=== PATIENT | female | born 1940 | race Caucasian/White ===

== ENCOUNTER 2023-09-25 11:38 | Outpatient (CLI) | payer MEDICARE, MEDICAID, SELFPAY ==
[2023-09-25 12:18] LABS: Basophils Absolute Auto 0.1 K/mm3 (0.0-0.1); Basophils Percent Auto 0.6 % (0.2-1.2); Eosinophils Absolute Auto 0.3 K/mm3 (0-0.3); Eosinophils Percent Auto 3.1 % (0-4.4); Hematocrit 40.3 % (37.0-47.0); Hemoglobin 12.6 g/dL (12.0-15.0); Immature Granulocyte Absolute 0.03 K/mm3 (0.00-0.031); Immature Granulocyte Percent A 0.3 % (0-0.5); Lymphocytes Absolute Auto 1.74 K/mm3 (0.9-3.2); Lymphocytes Percent Auto 20.1 % (18.3-44.2); Mean Corpuscular HGB Conc 31.3 g/dl (32-36); Mean Corpuscular Volume 92.6 fl (80-100); Mean Platelet Volume 12.2 fl (7.4-10.4); Monocytes Absolute Auto 0.7 K/mm3 (0.1-0.6); Monocytes Percent Auto 7.8 % (2.6-8.5); Neutrophils Absolute Auto 5.9 K/mm3 (1.3-6.7); Neutrophils Percent Auto 68.1 % (45.5-73.1); Platelet Count Result 220 k/mm3 (150-375); Red Blood Count 4.35 M/mm3 (4.2-5.4); Red Cell Distribution Width 13.6 % (11.5-14.5); White Blood Count 8.6 K/mm3 (4.5-10.0)
--- NOTE | 2023-09-25 12:18 | ECG_ITS ---
Test Date: 2023-09-25 12:26:45 Measurements Intervals [place] Rate: 68 P: 65 SD: 150 QRS: 28 QRSD: 92 T: 51 QT: 370 QTc: 395 Interpretive Statements SINUS RHYTHM NORMAL ELECTROCARDIOGRAM No previous ECG available for comparison Electronically Signed On 09-25-2023 15:51:01 CDT by Teofilo Bagley M.D.
[2023-09-25 12:21] LABS: Appearance Urine Clear (Clear); Bacteria Urine 3+ /hpf; Bilirubin Urine Negative (Negative); Blood Urine Trace (Negative); Color Urine Yellow (Yellow); Glucose Urine UA Negative (Negative); Ketones Urine Negative (Negative); Leukocyte Esterase Ur 3+ LEU/UL (Negative); Nitrate Urine Negative (Negative); Non Pathogenic Casts 0-2; Protein Urine Trace mg/dL (Negative); RBC Urine 0-2 /hpf (0-2); Specific Grav Ur 1.006 (1.001-1.035); Squamous Epithelial Cell Urine None Seen /hpf (Few); Urobilinogen Urine 0.2 mg/dL (<2.0); WBC Urine >100 /hpf (0-3); pH Urine 7.5 (5.0-9.0)
[2023-09-25 12:30] LABS: Add Urine Microscopic? YES
[2023-09-25 12:33] LABS: Hemoglobin A1C 5.6 % (<5.7)
== END 2023-09-25 11:39 | disposition home or self-care (01) ==
PROVIDERS: PCP Family Medicine; Visit Provider Nurse Practitioner Family
DX: M25.569 Pain in unspecified knee (principal); R73.03 Prediabetes; R53.83 Other fatigue; M17.12 Unilateral primary osteoarthritis, left knee; I10 Essential (primary) hypertension; E78.5 Hyperlipidemia, unspecified
CPT/HCPCS: 36415; 81001; 83036; 85025; 87077; 87086; 87088; 93005

== ENCOUNTER 2023-11-20 11:57 | Outpatient (CLI) | payer MEDICARE, MEDICAID, SELFPAY ==
[2023-11-20 13:23] LABS: Basophils Absolute Auto 0.1 K/mm3 (0.0-0.1); Basophils Percent Auto 0.8 % (0.2-1.2); Eosinophils Absolute Auto 0.2 K/mm3 (0-0.3); Eosinophils Percent Auto 2.4 % (0-4.4); Hemoglobin 12.5 g/dL (12.0-15.0); Immature Granulocyte Absolute 0.04 K/mm3 (0.00-0.031); Immature Granulocyte Percent A 0.5 % (0-0.5); Lymphocytes Absolute Auto 1.83 K/mm3 (0.9-3.2); Lymphocytes Percent Auto 21.2 % (18.3-44.2); Mean Corpuscular HGB Conc 32.9 g/dl (32-36); Mean Corpuscular Hemoglobin 29.6 pg (26-34); Mean Corpuscular Volume 89.8 fl (80-100); Mean Platelet Volume 11.7 fl (7.4-10.4); Monocytes Percent Auto 11.1 % (2.6-8.5); Neutrophils Absolute Auto 5.5 K/mm3 (1.3-6.7); Platelet Count Result 250 k/mm3 (150-375); Red Blood Count 4.23 M/mm3 (4.2-5.4); Red Cell Distribution Width 13.8 % (11.5-14.5); White Blood Count 8.7 K/mm3 (4.5-10.0)
[2023-11-20 13:27] LABS: Add Urine Microscopic? YES; Appearance Urine Clear (Clear); Bacteria Urine None Seen /hpf; Bilirubin Urine Negative (Negative); Blood Urine Negative (Negative); Color Urine Yellow (Yellow); Glucose Urine UA Negative (Negative); Ketones Urine Negative (Negative); Leukocyte Esterase Ur Negative LEU/UL (Negative); Nitrate Urine Negative (Negative); Non Pathogenic Casts 0-2; Protein Urine Trace mg/dL (Negative); RBC Urine 0-2 /hpf (0-2); Specific Grav Ur 1.008 (1.001-1.035); Squamous Epithelial Cell Urine None Seen /hpf (Few); Urobilinogen Urine 0.2 mg/dL (<2.0); WBC Urine 0-5 /hpf (0-3); pH Urine 5.5 (5.0-9.0)
[2023-11-20 13:31] LABS: Urine Cotinine NEGATIVE
[2023-11-20 13:36] LABS: Albumin Level 4.9 g/dL (3.5-5.1); Anion Gap 12 mmol/L (4-12); Blood Urea Nitrogen 14 mg/dL (7-17); Calcium 10.4 mg/dL (8.4-10.2); Carbon Dioxide 28 mmol/L (22-30); Chloride 93 mmol/L (98-107); Estimated Glomerular Filt Rate > 60; Glucose 95 mg/dL (65-110); Potassium 4.4 mmol/L (3.4-5.0); Sodium 133 mmol/L (137-145)
[2023-11-20 13:42] LABS: Prothrombin Time 13.9 Seconds (11.1-14.7)
[2023-11-20 13:43] LABS: Partial Thromboplastin Time 28.7 Seconds (22.3-36.8)
[2023-11-20 14:34] LABS: MRSA (PCR) NOT DETECTED (NOT DETECTE)
== END 2023-11-20 11:58 | disposition home or self-care (01) ==
LOC: ANHSURGERY 11:59
PROVIDERS: PCP Family Medicine; Visit Provider Orthopaedic Surgery
DX: M17.12 Unilateral primary osteoarthritis, left knee (principal); Z01.818 Encounter for other preprocedural examination
CPT/HCPCS: 80048; 80307; 81001; 82040; 85025; 85610; 85730; 86850; 86900; 86901; 87641

== ENCOUNTER 2023-12-01 00:28 | Day surgery (SDC) | payer MEDICARE, MEDICAID, SELFPAY ==
[2023-11-20 12:08] VITALS: BMI 26.9
--- NOTE | 2023-11-20 12:39 | PC.NURSE ---
Report to the Outpatient Waiting Room, entrance under the green pavilion located off [facility], at time __6:00 AM on date 12/01/23 . Planned Procedure Time: _7:30 AM .? Time changes happen often and if your time is changed the preop area will call you the afternoon before. - You and your visitor will be asked to self-screen and do not enter if you have any COVID symptoms. Please call surgeon if you need to reschedule. - A mask is optional within the hospital at this time. Patients may have clear liquids (water, carbonated beverages, clear teas, apple juice) until 3 hours prior to surgery ( 4:30 AM)with a maximum of 20 ounces. - No food from midnight until time of surgery and no smoking - Infants may have breast milk until 4 hours before surgery, infant formula 6 hours prior to surgery. - Children will be allowed to drink immediately following surgery.? If applicable, please bring a bottle or sippy cup to assist with drinking. Juice, water, soda, and popsicles are readily available.? For infants on formula, please bring formula the day of surgery.? Pacifiers are allowed. Take only the following medications with a SIP of water on the morning of surgery: AMLODIPINE,EYE DROPS DO NOT STOP ANY OF YOUR OTHER PRESCRIPTION MEDICATIONS PRIOR TO SURGERY EXCEPT THE FOLLOWING Medications to discontinue per physician __HOLD ALL VITAMINS AND SUPPLEMENTS 3 DAYS PRE OP.LAST DOSE 11/27/23 Please no make-up, nail kinyarwanda, hairspray, perfume, deodorant, or body powder the day of surgery.? No jewelry (including any body piercings) or valuables the day of surgery, leave them at home.? Please take a shower or bath the night before, or the morning of, surgery with an antibacterial soap.? Wear comfortable, loose fitting clothing.? Children are encouraged to wear pajamas. - Jewelry must be removed prior to entering the operating room.? Rings and piercings that are not removed may be cut off. - The hospital will not accept responsibility for valuables.? - Please leave all valuables, including medications, at home the day of surgery. If you are going home after surgery, a licensed intermodal truck driver must drive you home.? - NO public transportation without another adult if you receive anesthesia. - We recommend that an adult stay with you for 24 hours following discharge. - We also recommend that you do not drive, make important decision, drink alcoholic beverages, or take any drugs that were not prescribed by your health care provider for at least 24 hours after your discharge time. For Pediatric surgeries, we recommend two adults accompany the child home. Follow any additional instructions given to you from your surgeon. VERBAL AND WRITTEN instructions given to _PATIENT and asked if any additional questions and then verbalized understanding. Patient advised to call surgeon office or pre surgery nurse liaison [phone] if any additional questions.
[2023-11-20 12:54] VITALS: BP 158/60; PULSE 65; RESP 18; TEMP 36.5; O2SAT 98
[2023-12-01] VITALS (16 sets, daily range): BP systolic 110–158; BP diastolic 48–113; PULSE 62–78; RESP 12–18; TEMP 36.3–37.6; O2SAT 92–100
--- NOTE | ~2023-12-01 | XR_ITS ---
Left Knee Technique: Portable AP and crosstable lateral views Clinical History: Status post TKR Findings: Patient is status post total knee replacement. Orthopedic hardware alignment appears anatom ic. No hardware complication is evident. Subcutaneous emphysema and swelling is likely postoperative in nature. No acute osseous fracture is seen. Impression: Status post total knee replacement, without evidence of hardware complication. Reviewed, dictated and finalized at location . Impression: Status post total knee replacement, without evidence of hardware complication.
[2023-12-01] MEDS: LACTATED RINGERS 1,000 ML 30 ML IV CONT (06:25)
[2023-12-01] MEDS: TRANEXAMIC ACID 1,000MG/ISO100 1,000 MG/100 ML BAG 200 MG IVPB (06:25)
[2023-12-01] MEDS: ACETAMINOPHEN 500 MG TABLET 1000 MG PO (06:35)
--- NOTE | 2023-12-01 06:35 | WPDANESEPPF ---
Anes - Initial Pre Proc Eval Procedure: Operation Date: 12/01/23 07:30 Proposed Procedures p Left Total Knee Arthroplasty - Sven Lee MD Date/Time: 12/01/23 06:35 Surgeon: Sven Lee MD Pre Op Diagnosis: left knee oa Patient Data Age: 83 Gender: F Height: 1.52 m Weight: 62.4 kg Last Vital Signs Temp 36.5 C 11/20/23 12:54 Pulse 65 11/20/23 12:54 Resp 18 11/20/23 12:54 BP 158/60 H 11/20/23 12:54 Pulse Ox 98 11/20/23 12:54 O2 Del Method Room Air 11/20/23 12:54 Allergies Allergy/AdvReac Type Severity Reaction Status Date / Time Penicillins Allergy Unknown hives Verified 12/01/23 06:31 Home Medications Medication Instructions Recorded Confirmed Type bimatoprost 0.01 % eye drops 1 drp EACH EYE HS 01/23/21 12/01/23 History (Lumigan) cyclosporine 0.05 % eye drops in a 1 drp EACH EYE Q12H 01/23/21 12/01/23 History dropperette (Restasis) dorzolamide 2 %-timolol 0.5 % (PF) 1 drp EACH EYE BID 01/23/21 12/01/23 History eye drops valsartan 320 1 tablet PO DAILY #90 tabs 11/16/22 12/01/23 Rx mg-hydrochlorothiazide 12.5 mg tablet esomeprazole magnesium 40 mg See Rx Instructions .Route 03/01/23 12/01/23 Rx capsule,delayed release .COMPLEX #100 caps amlodipine 2.5 mg tablet 2.5 mg PO DAILY #100 tabs 06/15/23 12/01/23 Rx Rollator walker with seat #1 ea 08/26/23 11/12/23 Rx acetaminophen 500 mg capsule 500 mg PO Q6H PRN Pain 11/20/23 12/01/23 History ascorbic acid (vitamin C) 500 mg 500 mg PO DAILY 11/20/23 12/01/23 History capsule cholecalciferol (vitamin D3) 50 50 mcg PO DAILY 11/20/23 12/01/23 History mcg (2,000 unit) tablet cyanocobalamin (vitamin B-12) 500 500 mcg PO DAILY 11/20/23 12/01/23 History mcg tablet docosahexaenoic acid (dha)-epa 120 1 cap PO DAILY 11/20/23 12/01/23 History mg-180 mg capsule (Fish Oil) ferrous sulfate 325 mg (65 mg 325 mg PO EVERY OTHER DAY 11/20/23 12/01/23 History iron) tablet glucosamine-chondroitin 250 mg-200 1 tablet PO DAILY 11/20/23 12/01/23 History mg tablet (Osteo Bi-Flex) czvhbktuhvos-zjfxsywb-boxsyf 1 tablet PO DAILY 11/20/23 12/01/23 History tablet (Multivitamin 50 Plus tablet) vit 1 tablet PO DAILY 11/20/23 12/01/23 History C-raxrgzw-juhcgvbrj-rutin-wwul001 500 mg-50 mg-25 mg-40 mg tablet (Bioflex) rosuvastatin 20 mg tablet 20 mg PO DAILY #90 tabs 11/24/23 Rx Patient hx anesthesia problems: none Family hx anesthesia problems: none Results Review: All pre-operative results and documents have been reviewed as part of the pre-operative evaluation. [facility] Past Medical History Medical History Benign essential hypertension Chronic GERD Dry eyes, bilateral Glaucoma History of colon polyps HLD (hyperlipidemia) Other and unspecified hyperlipidemia Other fatigue Pre-diabetes Primary osteoarthritis of both knees Primary osteoarthritis of right hip Surgical History Surgical History Presence of right artificial hip joint Family History Family History Father Malignant neoplasm of prostate Family history of diabetes mellitus in first degree relative Other Acute myocardial infarction Family history of arthritis Family history of gout Family history of malignant neoplasm Hypertension Social History Social History Social History: She is living at [facility]. POA: daughter Valeria. She has a living will. DNR. Years smoked: 10 Smoking status: Former smoker Tobacco type: cigarettes Second hand tobacco smoke exposure: No Smoking end date: 03/30/80 Additional smoking assessment comments: DENIES ANY FORM OF TOBACCO USE Alcohol intake: never Substance use: never Substance use type: does not use [facility]
--- NOTE | 2023-12-01 07:16 | WPDHPUPDATE1 ---
History and Physical Update Update Date/Time: 12/01/23 07:16 History and Physical has been reviewed, including an updated exam of the patient. There are NO changes in the patient's condition. Risks, benefits, and alternatives have been discussed and questions answered. Patient agrees to proceed with procedure.
[2023-12-01] MEDS: ceFAZolin 2 GM/D5W 50 ML 2 GM/50 ML BAG IVPB ×3 (08:05→23:23)
[2023-12-01] MEDS: SODIUM CHLORIDE 0.9% IV 37.7 ML, MORPHINE SULFATE INJ (*CRX) 2 MG, ROPivacaine HCL 1% 2... INFILTRATE (08:12)
[2023-12-01] MEDS: TRANEXAMIC ACID 1,000 MG/10 ML AMPUL 1000 MG IV PUSH (09:01)
--- NOTE | 2023-12-01 09:43 | W.PM.PROC2 ---
Procedure Note - Detailed Date of Procedure 12/01/23 Pre-op Diagnosis left knee oa Post-op Diagnosis Same Procedure Performed L TKA Surgeon Sven Lee MD Anesthesia General Description of Procedure THE LEFT KNEE WAS PREPPED AND DRAPED IN THE STERILE FASHION. A MIDLINE SKIN INCISION WAS MADE. A MEDIAL PARAPATELLAR ARTHROTOMY WAS MADE. THE PATELLA WAS EVERTED. THERE WAS TRICOMPARTMENT DJD. THERE WAS MINIMAL PATELLA DJD. AN INTRAMEDULLARY DYLON WAS PLACED IN THE FEMUR. A DISTAL FEMORAL CUT WAS MADE IN 5 DEGREES OF VALGUS REMOVING APPROXIMATELY 9 MM OF BONE FROM THE DISTAL FEMUR. THE FEMUR WAS SIZED TO 62.5. A 62.5 FEMORAL CUTTING BLOCK WAS PLACED IN 3 DEGREES OF EXTERNAL ROTATION AND IN ALIGNMENT WITH OTF'S LINE AND THE TRANSEPICONDYLAR AXIS. ANTERIOR POSTERIOR AND CHAMFER CUTS WERE MADE. THE CUTS WERE EXCELLENT. NEXT AN INTRAMEDULLARY CUTTING GUIDE WAS PLACED IN THE TIBIA. A TRANS TIBIAL CUT WAS MADE ALONG THE LONG AXIS OF THE TIBIA. APPROXIMATELY 10 MM OF BONE WAS REMOVED FROM THE HIGH SIDE OF THE TIBIA. THE TIBIA WAS THEN PLANED TO A SMOOTH SURFACE. POSTERIOR FEMORAL OSTEOPHYTES WERE REMOVED FROM THE FEMORAL CONDYLES. A 67 TIBIAL TRIAL WAS PLACED IN ALIGNMENT WITH THE 1/3 MEDIAL ASPECT OF THE TIBIAL TUBERCLE. THEN A 62.5 FEMORAL TRIAL COMPONENT WAS PLACED. BOTH HAD EXCELLENT FITS. EVENTUALLY A 12 MM POLYETHYLENE TRIAL COMPONENT WAS PLACED. THE KNEE WAS TAKEN THROUGH A RANGE OF MOTION. THE KNEE CAME OUT TO FULL EXTENSION. THERE WAS NO ABNORMAL TILT TO THE PATELLA. THERE WAS GOOD A/P AND VARUS/VALGUS STABILITY. THERE WAS NO EXCESSIVE ROLL BACK WITH FLEXION. THE TRIAL COMPONENTS WERE REMOVED. THEN A 62.5 FEMORAL COMPONENT AND 67 TIBIAL COMPONENT WITH A 12 POLYETHYLENE COMPONENT WERE CEMENTED INTO PLACE. ONCE THE CEMENT WAS HARD THE KNEE WAS TAKEN THROUGH A ROM AGAIN AND FOUND TO BE STABLE WITH NO PATELLA TILT NO EXCESSIVE ROLL BACK WITH FLEXION AND GOOD STABILITY WITH COMPLETE AND FULL EXTENSION. THE KNEE WAS IRRIGATED WITH STERILE BETADINE AND WATER FOR ABOUT 3 MINUTES. THE BLEEDERS WERE CAUTERIZED. THE ARTHROTOMY WAS REPAIRED WITH NUMBER 1 VICRYL. THE SUB CUTANEOUS LAYER WITH 2-0 VICRYL AND THE SKIN WITH LILIA. THE WOUND WAS WASHED AND A STERILE DRESSING WAS APPLIED. PATIENT WAS EXTUBATED. Estimated Blood Loss -150.0 Pathology None sent Complications No immediate complications Condition Stable Disposition PACU
--- NOTE | 2023-12-01 11:15 | ADMGEN ---
This patient, Kriss Felix, was admitted to 2 Medical Room 257-01. Patient/family oriented to hospital policies and general routines including ID bracelet, bed and alarms, visiting hours, pain management, procedures, bathroom and other care routines, personal items, smoking policy, room service/diet, and visiting hours. Information on how to activate the Rapid Response Team has been discussed. Patient/Family are encouraged to report perceived risks to care and to ask questions if they do not understand what they are told or what they should do.
[2023-12-01] MEDS: CHOLECALCIFEROL 1,000 UNITS TABLET 2000 UNITS PO (12:14)
[2023-12-01] MEDS: hydroCHLOROthiazide 12.5 MG CAPSULE PO (12:15)
[2023-12-01] MEDS: VALSARTAN 160 MG TABLET 320 MG PO (12:15)
[2023-12-01] MEDS: CELECOXIB 200 MG CAPSULE PO ×2 (12:15→16:46)
[2023-12-01] MEDS: FAMOTIDINE 20 MG TABLET PO ×2 (12:15→20:15)
[2023-12-01] MEDS: amLODIPine BESYLATE 2.5 MG TABLET PO (12:15)
[2023-12-01] MEDS: FERROUS SULFATE 325 MG TABLET DR PO (12:15)
[2023-12-01] MEDS: ASPIRIN 325 MG ENTERIC TABLET PO ×2 (12:15→20:15)
[2023-12-01] MEDS: cycloSPORINE 0.4 ML OPHTH SOLUTION 1 DROP EACH EYE ×2 (12:18→20:17)
[2023-12-01] MEDS: DORZOLAMIDE/TIMOLOL OPHTH SOL 10 ML BOTTLE 1 DROP EACH EYE ×2 (12:18→20:15)
[2023-12-01] MEDS: LATANOPROST 0.005% OP SOLN 2.5 ML BTL 1 DROP EACH EYE (20:15)
[2023-12-02 04:37] VITALS: BP 108/65; PULSE 66; RESP 18; TEMP 36.6; O2SAT 97
[2023-12-02 06:09] LABS: Basophils Percent Auto 0.3 % (0.2-1.2); Eosinophils Absolute Auto 0.1 K/mm3 (0-0.3); Eosinophils Percent Auto 0.6 % (0-4.4); Hematocrit 29.8 % (37.0-47.0); Hemoglobin 9.5 g/dL (12.0-15.0); Immature Granulocyte Absolute 0.03 K/mm3 (0.00-0.031); Immature Granulocyte Percent A 0.3 % (0-0.5); Lymphocytes Absolute Auto 1.34 K/mm3 (0.9-3.2); Lymphocytes Percent Auto 11.7 % (18.3-44.2); Mean Corpuscular HGB Conc 31.9 g/dl (32-36); Mean Corpuscular Hemoglobin 29.1 pg (26-34); Mean Corpuscular Volume 91.4 fl (80-100); Mean Platelet Volume 11.5 fl (7.4-10.4); Monocytes Absolute Auto 1.2 K/mm3 (0.1-0.6); Monocytes Percent Auto 10.5 % (2.6-8.5); Neutrophils Absolute Auto 8.8 K/mm3 (1.3-6.7); Neutrophils Percent Auto 76.6 % (45.5-73.1); Platelet Count Result 173 k/mm3 (150-375); Red Blood Count 3.26 M/mm3 (4.2-5.4); White Blood Count 11.5 K/mm3 (4.5-10.0)
[2023-12-02 06:22] LABS: Anion Gap 8 mmol/L (4-12); Blood Urea Nitrogen 15 mg/dL (7-17); Calcium 9.3 mg/dL (8.4-10.2); Carbon Dioxide 27 mmol/L (22-30); Chloride 96 mmol/L (98-107); Estimated CRCL calculation 37 ml/min; Estimated Glomerular Filt Rate > 60; Glucose 101 mg/dL (65-110); Potassium 3.8 mmol/L (3.4-5.0); Sodium 131 mmol/L (137-145)
[2023-12-02 08:23] VITALS: O2SAT 94
[2023-12-02 08:47] VITALS: BP 115/73; PULSE 63; RESP 12; TEMP 36.6; O2SAT 99
[2023-12-02] MEDS: hydroCHLOROthiazide 12.5 MG CAPSULE PO (09:05)
[2023-12-02] MEDS: CHOLECALCIFEROL 1,000 UNITS TABLET 2000 UNITS PO (09:05)
[2023-12-02] MEDS: ASPIRIN 325 MG ENTERIC TABLET PO (09:05)
[2023-12-02] MEDS: ceFAZolin 2 GM/D5W 50 ML 2 GM/50 ML BAG IVPB (09:05)
[2023-12-02] MEDS: SENNA/DOCUSATE SODIUM TABLET 2 TAB PO (09:05)
[2023-12-02] MEDS: oxyCODONE/ACETAMINOPHEN (*CRX) 5-325 MG TABLET 1 TABLET PO ×2 (09:06→14:19)
[2023-12-02] MEDS: cycloSPORINE 0.4 ML OPHTH SOLUTION 1 DROP EACH EYE (09:06)
[2023-12-02] MEDS: CELECOXIB 200 MG CAPSULE PO (09:06)
[2023-12-02] MEDS: VALSARTAN 160 MG TABLET 320 MG PO (09:06)
[2023-12-02] MEDS: amLODIPine BESYLATE 2.5 MG TABLET PO (09:06)
[2023-12-02] MEDS: FAMOTIDINE 20 MG TABLET PO (09:06)
[2023-12-02] MEDS: DORZOLAMIDE/TIMOLOL OPHTH SOL 10 ML BOTTLE 1 DROP EACH EYE (09:07)
[2023-12-02] MEDS: polyethylene glycoL 3350 17 GM POWD.PACK PO (09:07)
--- NOTE | 2023-12-02 13:51 | PM.PNORT ---
Progress Note: A&P Assessment and Plan (1) Left knee DJD: Qualifiers: Osteoarthritis type: primary Qualified Code(s): M17.12 - Unilateral primary osteoarthritis, left knee Code(s): M17.12 - Unilateral primary osteoarthritis, left knee Status: Acute Assessment and Plan: POD 1 DOING WELL. OK TO DC HOME F/U IN 3 WEEKS Subjective Subjective Date/Time Seen: 12/02/23 13:51 Interval history: POD 1 DOING WELL. PAIN CONTROLLED. NO CALF PAIN Exam Extrem: Other: VSS AFEBRILE DRESSING DRY NV INTACT NEG HOMANS SIGN CALF, THIGH SOFT NON TENDER Objective Data Vital Signs Vital Signs: Vital Signs - 24 hr 12/01/23 16:30 12/01/23 20:29 12/01/23 20:00 Temperature 36.5 C 36.3 C L Pulse Rate 62 62 Respiratory Rate 18 18 Blood Pressure 117/85 113/73 Pulse Oximetry 99 98 Oxygen Delivery Room Air 12/01/23 23:28 12/02/23 04:37 12/02/23 08:23 Temperature 36.3 C L 36.6 C Pulse Rate 68 66 Respiratory Rate 16 18 Blood Pressure 110/48 L 108/65 Pulse Oximetry 97 97 94 Oxygen Delivery Room Air 12/02/23 09:05 12/02/23 08:47 Temperature 36.6 C Pulse Rate 63 Respiratory Rate 12 Blood Pressure 115/73 Pulse Oximetry 99 Oxygen Delivery Room Air Intake/Output Intake/Output: Intake & Output 11/29/23 11/30/23 12/01/23 12/02/23 23:59 23:59 23:59 23:59 Intake Total 800 630 Balance 800 630 Meds/Results Medications: Active Medications Generic Name Dose Route Start Last Admin Trade Name Freq PRN Reason Stop Dose Admin Amlodipine Besylate 2.5 mg 12/01/23 11:02 12/02/23 09:06 Amlodipine Besylate 2.5 Mg Tablet PO 2.5 mg DAILY WILIAM Administration Aspirin 325 mg 12/01/23 11:02 12/02/23 09:05 Aspirin 325 Mg Enteric Tablet PO 325 mg Q12HR WILIAM Administration Celecoxib 200 mg 12/01/23 11:02 12/02/23 09:06 Celecoxib 200 Mg Capsule PO 200 mg BIDWM WILIAM Administration Cyclosporine 1 drop 12/01/23 11:20 12/02/23 09:06 Cyclosporine 0.4 Ml Ophth Solution EACH EYE 1 drop Q12HR WILIAM Administration Diazepam 5 mg 12/01/23 11:02 Diazepam (*Crx) 5 Mg Tablet PO Q8H PRN Spasms Diphenhydramine HCl 25 mg 12/01/23 11:02 Diphenhydramine Hcl Inj 50 Mg/Ml Vial IV PUSH Q6H PRN Itching Dorzolamide/Timolol 1 drop 12/01/23 11:25 12/02/23 09:07 Dorzolamide/Timolol Ophth Marizol 10 Ml Bottle EACH EYE 1 drop Q12HR WILIAM Administration Famotidine 20 mg 12/01/23 11:02 12/02/23 09:06 Famotidine 20 Mg Tablet PO 20 mg Q12HR WILIAM Administration Ferrous Sulfate 325 mg 12/01/23 11:20 12/01/23 12:15 Ferrous Sulfate [address] PO 12/31/23 11:19 325 mg Q48HR WILIAM Administration Hydrochlorothiazide 12.5 mg 12/01/23 11:25 12/02/23 09:05 Hydrochlorothiazide 12.5 Mg Capsule PO 12.5 mg QAM WILIAM Administration Hydromorphone HCl 1 mg 12/01/23 11:02 Hydromorphone Hcl Inj (*Crx) 1 Mg/Ml Syr IV PUSH Q2H PRN Breakthrough Pain Rated 7-10 or NPO Hydromorphone HCl 0.5 mg 12/01/23 11:02 Hydromorphone Hcl Inj (*Crx) 1 Mg/Ml Syr IV PUSH Q2H PRN Breakthrough Pain Rated 4-6 or NPO Ibuprofen 800 mg in 200 mls @ 400 mls/hr 12/01/23 11:02 Caldolor 800 Mg/200 Ml IVPB Q6H PRN Breakthrough Pain Rated 1-3 or NPO Latanoprost 1 drop 12/01/23 21:00 12/01/23 20:15 Latanoprost 0.005% Op Soln 2.5 Ml Btl EACH EYE 1 drop HS WILIAM Administration Naloxone HCl 0.1 mg 12/01/23 11:02 Naloxone Hcl 0.4 Mg/Ml Vial IV PUSH Q2M PRN Opiate Reversal Ondansetron HCl 4 mg 12/01/23 11:02 Ondansetron Inj 4 Mg/2 Ml Vial IV PUSH Q4H PRN Nausea And Vomiting Oxycodone/Acetaminophen 1 tab 12/01/23 11:02 Oxycodone/Acetaminophen (*Crx) 10-325 Mg Tablet PO Q6H PRN Pain Rated 7-10 Oxycodone/Acetaminophen 1 tablet 12/01/23 11:02 12/02/23 09:06 Oxycodone/Acetaminophen (*Crx) 5-325 Mg Tablet PO 1 tablet Q4H PRN A
--- NOTE | 2023-12-02 13:56 | PM.DS ---
DS: Admitting Diagnosis Discharge Date 12/02/23 Admitting Diagnosis LEFT KNEE DJD DS: Discharge Diagnosis Discharge Diagnosis (1) Left knee DJD: Qualifiers: Osteoarthritis type: primary Qualified Code(s): M17.12 - Unilateral primary osteoarthritis, left knee Code(s): M17.12 - Unilateral primary osteoarthritis, left knee Status: Acute DS: Summary Hospital Course Reason for hospitalization: LEFT TKA Hospital Course: PATIENT WAS ADMITTED S/P TOTAL KNEE ARTHROPLASTY FOR POSTOPERATIVE MEDICAL MANAGEMENT, PAIN CONTROL AND MOBILIZATION WITH PHYSICAL AND OCCUPATIONAL THERAPY. THE PATIENT PROGRESSED WELL WITH PT/OT. LABS AND VITALS REMAINED STABLE AND PAIN WELL CONTROLLED. THE PATIENT HAS BEEN CLEARED TO BE DISCHARGED HOME. FOLLOW UP APPOINTMENT SCHEDULED. DISCHARGE INSTRUCTIONS DISCUSSED AT LENGTH WITH THE PATIENT. MEDICATIONS REVIEWED. Status at Discharge Cognitive/behavioral status at discharge: STABLE Time Spent with Patient Time attestation: Total time spent providing and/or coordinating discharge services: DS: Data Data Completed and Pending Labs on day of discharge: Labs from last 24 hours 12/02/23 06:01 WBC 11.5 H RBC 3.26 L Hgb 9.5 L D Hct 29.8 L MCV 91.4 MCH 29.1 MCHC 31.9 L RDW 14.0 Plt Count 173 MPV 11.5 H Immature Gran % (Auto) 0.3 Neut % (Auto) 76.6 H Lymph % (Auto) 11.7 L [place] % (Auto) 10.5 H Eos % (Auto) 0.6 Baso % (Auto) 0.3 Lymph # (Auto) 1.34 [place] # (Auto) 1.2 H Eos # (Auto) 0.1 Baso # (Auto) 0.0 Abs Immat Gran (auto) 0.03 Absolute Neuts (auto) 8.8 H Absolute Nucleated RBC 0.000 Nucleated RBC % 0.0 Sodium 131 L Potassium 3.8 Chloride 96 L Carbon Dioxide 27 Anion Gap 8 BUN 15 Creatinine 0.80 Estim Creat Clear Calc 37 Estimated GFR > 60 Glucose 101 Calcium 9.3 Discharge Plan Discharge Patient Disposition: Home Health Service Discharge Instructions: Post Op Total Knee Replacement Instructions Dr. Sven Lee [phone] Your dressing will be changed prior to your discharge. You will be sent home with one additional dressing to be changed on post op day 7 by the home health RN. Your roxana will be removed on the 14th day after surgery and steri-strips will be placed. Please practice good hand hygiene and do not touch your incision in order to prevent infection. You may shower with your dressing but do not submerge in a bath tub. Do not drive or operate machinery until you are released by Dr. Lee. Do not walk without a walker for any reason until you are released by Dr. Lee. Continue to use your ice machine. Please use a towel or pillow case to protect your skin before applying your ice machine. Do NOT place a pillow under your knee. You may use a pillow from the calf down if needed. This will prevent a flexion contracture postoperatively. You may begin use of your CPM machine at home if you have been given one pre-operatively. DO NOT USE WHILE YOU ARE SLEEPING. Your first post op appointment was sent to you via mail preoperatively. If you have any questions or are unable to make your appointment, please contact our office for scheduling questions. Your medications have been sent to your pharmacy. You have been sent home with pain medication. Please tile picker an over the counter stool softener to prevent constipation due to narcotic use. Please keep this in mind during your postoperative recovery. If you are not experiencing regular bowel movements, please contact our office for further instruction. Please contact our office with any questions/concerns regarding your knee at [phone]. Patient Instructions: Antibiotic Form Stand Alone Forms: General Discharge Information Follow-up/Referrals: Sven Lee MD [Physician] - Keep Reg. Scheduled Appt. Discharge Medications: New hydrocodone-acetaminophen 5-325 mg tablet 1 tablet PO Q8H PRN (Reason: pain) Qty: 30 0RF aspirin 325 mg t
== END 2023-12-02 14:36 | disposition home health service (06) ==
LOC: ANHSURGERY 07:12 → ANH2MED 11:05
PROVIDERS: PCP Family Medicine; Visit Provider Orthopaedic Surgery
PROC: (CPT 27447; principal; 2023-12-01 07:30)
DX: M17.12 Unilateral primary osteoarthritis, left knee (principal); E78.5 Hyperlipidemia, unspecified; I10 Essential (primary) hypertension; K21.9 Gastro-esophageal reflux disease without esophagitis; H40.9 Unspecified glaucoma; R73.03 Prediabetes; Z87.891 Personal history of nicotine dependence
CPT/HCPCS: 27447; 36415; 73560; 80048; 80307; 81001; 82040; 85025; 85610; 85730; 86850; 86900; 86901; 87641; 97110; 97116; 97161; 97165; 97530; 97535; A9270; C1713; C1776; J0171; J0690; J1100; J1170; J1885; J2270; J2405; J2704; J2795; J3010; J3370; J7120

== ENCOUNTER 2024-03-03 11:00 | Outpatient (RCR) | payer MEDICARE, MEDICAID, SELFPAY ==
--- NOTE | 2023-12-31 11:59 | OPREHPOC ---
Outpatient Therapy Plan of Care This is a Multidisciplinary Plan of Care that may contain components documented by all disciplines (PT, OT, and ST.) PT Problem 1 PT Problem #1 Knowledge Deficit PT Goal 1 Goal / Goal Update *indep with HEP * correct use of assistive device Target Visit 10 PT Problem 2 PT Problem #2 Pain PT Goal 1 Goal / Goal Update 1* LE functional scale rating of 50% limitation in activity level 2* pt report activity tolerance with standing/ walking of 45 minutes Target Visit 10 PT Problem 3 PT Problem #3 Impaired Flexibility PT Goal 1 Goal / Goal Update increase L knee ROM to improve gait, stairs and sit/stand transfers: active in sittin* extension 0' 2* flexion 105' Target Visit 10 PT Problem 4 PT Problem #4 Impaired Functional Mobil PT Goal 1 Goal / Goal Update 1* sit/stand from 18 seat, without use of UE x 5 reps 2* 2 minute walking test distance of 300' 3* up/down 4 steps with 1 hand railing Target Visit 10 PT Problem 5 PT Problem #5 Impaired Strength PT Goal 1 Goal / Goal Update increase strength of L knee/hip to improve mobility and gait skills: 1* pt perform 20 reps of mat strengthening exericses Target Visit 10
--- NOTE | 2023-12-31 12:00 | PTOPEVAL1 ---
Assessment and note entered by Olena Wilkins, PT Evaluation Information Assessment Status Evaluation ICD-10 Condition Codes (PT) Difficulty Walking R26.2,R26.9,Weakness R53.1,Z47. 89 Onset 12-01-23 Subjective Information had L TKR on 12-01-23; had [facility] for 3 visits--feel comfortable getting around her apt, but not sure about getting in/out tub with the seat; (discussed transfer and demo with her); have been doing the exercises at home- 15 reps; Activity: prior to surgery, did not use assistive device; live in apt complex with her dog; have elevator-- do not have any stairs; Goal: walk without the walker; Reported Pain Level Pain Score 1: Self Report Additional Pain Score Comments pain staying at 1/10 all time, stiff and tight knee; use ice and over the counter meds, elevation for pain control reported activity tolerance with home activity 20 minutes sleep is not disrupted due to knee pain Assessment PT Clinical Summary Kriss is s/p L TKR on 12-01-23. She has completed [facility] PT. LE Functional scale self rating of 69% limitation in activity level. She lives alone in an apartment, which has an elevator. Prior to surgery, she was active, did not use an assistive device. She does not drive, so a friend provides her transportation. She reports doing her home exercises once a day, 15 reps---reinforced doing some exercises and walking every hour. And importance of stretching knee flexion and extension ranges of motion. With the evaluation: L knee and hip strength is decreased with ROM: active (-20') to 75' and passive (-5') to 80'; 2 minute walking test distance of 170' with wheeled walker; sit to/from stand transfer requires bilateral UE use. There is edema over L knee. Skilled PT is indicated for modalities to decrease pain and edema, therapeutic exercises and progression of gait. Education for HEP and lesser assistive device. Plan of Care Interventions Electrical Stimulation,Gait Training,Hot Pack/Cold Pack,Intermittent Compression,Manual Therapy, Neuro Re-education,Patient/Caregiver Education, Therapeutic Activities,Therapeutic Exercise,Other Other Interventions taping PT Services Indicated Yes Treatment Frequency and 2x/wk for 10 visits Duration These treatments will address the objective and functional deficits as defined above. The patient will be advanced safely and appropriately in order for the patient to progress towards his/her prior level of function. Additional exercises will be introduced and as well as a comprehensive home exercise program upon discharge, if needed, ?to ensure carryover of functional gains achieved in the clinic. This treatment plan has been reviewed and agreement upon by the patient.
--- NOTE | 2024-02-02 12:01 | OPREHPOC ---
Outpatient Therapy Plan of Care This is a Multidisciplinary Plan of Care that may contain components documented by all disciplines (PT, OT, and ST.) PT Problem 1 PT Problem #1 Knowledge Deficit PT Goal 1 Goal / Goal Update *indep with HEP * correct use of assistive device Target Visit 10 Progress Met PT Goal 2 Goal / Goal Update 02-02-24 progress met goals continue to progress HEP Target Visit 18 PT Problem 2 PT Problem #2 Pain PT Goal 1 Goal / Goal Update 1* LE functional scale rating of 50% limitation in activity level 2* pt report activity tolerance with standing/ walking of 45 minutes Target Visit 10 Progress Not Met PT Goal 2 Goal / Goal Update 02-02-24 progress improved but goals not met continue towards goals Target Visit 18 PT Problem 3 PT Problem #3 Impaired Flexibility PT Goal 1 Goal / Goal Update increase L knee ROM to improve gait, stairs and sit/stand transfers: active in sittin* extension 0' 2* flexion 105' Target Visit 10 Progress Met PT Goal 2 Goal / Goal Update 02-02-24 progress met goals discontinue goal PT Problem 4 PT Problem #4 Impaired Functional Mobil PT Goal 1 Goal / Goal Update 1* sit/stand from 18 seat, without use of UE x 5 reps 2* 2 minute walking test distance of 300' 3* up/down 4 steps with 1 hand railing Target Visit 10 Progress Partially Met PT Goal 2 Goal / Goal Update 02-02-24 progress met goal 2 with wheeled walker continue towards goals: progress #2 to use of cane Target Visit 18 PT Problem 5 PT Problem #5 Impaired Strength PT Goal 1 Goal / Goal Update increase strength of L knee/hip to improve mobility and gait skills: 1* pt perform 20 reps of mat strengthening exericses Target Visit 10 Progress Met PT Goal 2 Goal / Goal Update 02-02-24 progress met goal NEW GOAL: * single leg standing L x 5 seconds, to improve gait pattern Target Visit 18
--- NOTE | 2024-02-02 12:01 | PTOPPROG ---
Assessment and note entered by Olena Wilkins, PT Progress report Assessment Status Progress ICD-10 Condition Codes (PT) Difficulty Walking R26.2,R26.9,Weakness R53.1,Z47. 89 Onset 12-01-23 Subjective Information saw and he was very pleased, released me from his care; using the cane in my apartment, and walker when go out places; able to be up about 30- 45 minutes; getting better with moving and doing things; need more therapy for my balance. Pain: range in the past week, 0-1/10; L knee increase pain when up walking and doing more; decrease pain: sit/rest and rub knee; Assessment PT Clinical Summary Kriss has received 10 PT sessions. Compared to the initial evaluation: pain has decreased to 0-1/10; increase ROM of L knee to 0- 115'; increase strength of L LE; sit/stand with use of 1 UE; 2 minute walking test distance with walker 320' and with cane 225'; on 8 stairs, requires bilateral hand rails. The goals were partially met. Continue PT for further increase in L LE strength, gait and balance. Prior to TKR, she did not use an assistive device for walking. Plan of Care Interventions Gait Training,Neuro Re-education,Patient/Caregiver Education,Therapeutic Activities,Therapeutic Exercise Other Interventions taping PT Services Indicated Yes Treatment Frequency and 2x/wk for 8 visits Duration These treatments will address the objective and functional deficits as defined above. The patient will be advanced safely and appropriately in order for the patient to progress towards his/her prior level of function. Additional exercises will be introduced and as well as a comprehensive home exercise program upon discharge, if needed, ?to ensure carryover of functional gains achieved in the clinic. This treatment plan has been reviewed and agreement upon by the patient.
--- NOTE | 2024-02-02 12:02 | PCPTNOTE ---
pt was 15 minutes late for today's reevaluation appt;
--- NOTE | 2024-02-02 12:03 | PCPTNOTE ---
pt brought in a new order from Dr Lee, dated 02-01-24: continue PT.
--- NOTE | 2024-03-03 11:44 | PTOPDC ---
Assessment and note entered by Olena Wilkins, PT Discharge Report Assessment Status Discharge ICD-10 Condition Codes (PT) Difficulty Walking R26.2,R26.9,Weakness R53.1,Z47. 89 Onset 12-01-23 Subjective Information feeling good, ready to be finished up with therapy using the cane when go out, in her apt nothing; when walking her dog, use the wheeled walker; able to be up on her feet about 3 hours around the house; will keep doing the exercises. Reported Pain Level Pain Score 0: Self Report Pain Score 0: Self Report Assessment PT Clinical Summary Kriss has received 18 PT sessions. Compared to the last reeval: does not have any pain; has not had any falls; is walking without device in her home, using the cane in the community and wheeled walker when walking her dog; self assessment LE functional scale from 63 to 30% limitation in activity level; 5 reps sit/ stand time is the same at 24 seconds with using 1 UE; 2 minute walking test distance with cane from 225' to 285'; on 4 steps is using the cane and 1 hand railing; L knee active ROM in sitting is 0- 115'; education completed for HEP and safety with mobility. The goals were partially met. Discharge PT. She is to continue with her HEP and walking as tolerated. Plan of Care PT Services Indicated No
== END 2024-03-04 11:33 | disposition home or self-care (01) ==
LOC: ANHPT 11:00
PROVIDERS: PCP Family Medicine; Visit Provider Orthopaedic Surgery
DX: Z47.1 Aftercare following joint replacement surgery (principal); Z96.652 Presence of left artificial knee joint
CPT/HCPCS: 97110; 97116; 97140; 97161; 97530

== ENCOUNTER 2024-06-03 12:46 | Outpatient (NON) | payer MEDICARE, SELFPAY ==
--- OUTSIDE RECORDS SUMMARY | 2024-06-03 13:07 | XMS_ITS | Continuity of Care Document ---
Author Organization [facility] [place] Address [address] [place] [address] Phone Care Team Providers Care Dietary Server Name Role Phone Betty Paige Unavailable Unavailable Procedures Procedure Date Visual Field Examination(s) Office/outpatient Visit, Est Office/outpatient Visit, Est Fundus Photography W/ Report Visual Field Examination(s) Eye Exam Established Pt Office/outpatient Visit, Est Office/outpatient Visit, Est Office/outpatient Visit, Est Visual Field Examination(s) Office/outpatient Visit, Est Eye Exam & Treatment Office/outpatient Visit, Est Fundus Photography W/ Report Visual Field Examination(s) Office/outpatient Visit, Est Office/outpatient Visit, Est Office/outpatient Visit, Est Advance Directives Directive Yes / No Effective Date File Name No Information Encounters Encounter Description Practice Location Reason(s) For Visit Diagnoses Date Provider Providers Copied on Encounter [facility], [address], [place], [place], [address], [place] tel:[phone] [facility] No Information 0-[address] , [address], [place], [address], [place]. tel:[phone] Referring Provider: Betty Merlos, [address], [place], [place], [facility]. tel:[phone] Office/outpat ient Visit, Est [facility], [address], [place], [place], [id number], tel:[phone] [facility] No Information Jun-2 7-201 0 Grecia Alaniz [address] , [address], [place], [place], [facility], . tel:[phone] Office/outpat ient Visit, Est [facility], [address], [place], [place], [address], tel:[phone] [facility] No Information Dec-2 2-200 9 Grecia Hernández. [address] , [address], [place], [place], [facility], . tel:[phone] Referring Provider: Betty Merlos, [address], [place], [place], [facility]. tel:[phone] [facility], [address] [place] [address] [address], [place], [place], [address], tel:[phone] [facility] No Information Oct-1 0-200 9 Grecia Alaniz [address] , [address], [place], [facility], . tel:[phone] Referring Provider: Betty Merlos, [address], [place], [facility]. tel:[phone] [facility], [address], [place], [place], [address], [place] tel:[phone] [facility] No Information Apr-2 4-200 9 Grecia Hernández. [address] , [address], [place], [place], [facility], . tel:[phone] Office/outpat ient Visit, Est [facility], [address], [place], [place], [address], [place] tel:[phone] [facility] No Information 0-200 9 Grecia Alaniz [address] , [address], [place], [address], [place]. tel:[phone] Office/outpat ient Visit, [facility], [address], [place], [place], [address], [place] tel:[phone] [facility] No Information 5-200 8 Grecia Alaniz [address] , [address], [place], [facility], [place]. tel:[phone] Office/outpat ient Visit, [facility], [address], [place], [place], [address], [place] tel:[phone] [facility] No Information 6-200 8 Grecia Alaniz [address] , [address], [place], [address], [place]. tel:[phone] [facility], [address], [place], [place], [address], [place] tel:[phone] [facility] No Information 4-200 8 Grecia Alaniz [address] , [address], [place], [facility], [place]. tel:[phone] Referring Provider: Betty Merlos [address], [place], [facility]. tel:[phone] Office/outpat ient Visit, [facility], [address], [place], [place], [address], [place] tel:[phone] [facility] No Information May- 4-200 8 Grecia Alaniz [address], [place], [facility], . tel:[phone] [facility], [address] [place] [address] [address], [place], [place], [address], tel:[phone] [facility] No Information Dec-0 6-200 [address] Wu OD Boris[address] , [address], [place], [facility], . tel:[phone] Office/outpat ient Visit, [facility], [address] [place] [address] [address], [place], [place], [address], [place] tel:[phone] [facility] No Information Nov-0 9-200 7 Grecia Hernández. [facility] [place] [facility] , [address], [place], [facility], . tel:[phone] Referring Provider: Betty Merlos, [address] [place], [place] [address], [place], [facility]. tel:[phone] [facility], [address] [place] [address] [address], [place], [place], [address], [place] tel:[phone] [facility] No Information Rivas-0 2-200 7 Grecia Hernández. [facility] [place] [facility] [facility] , [address], [place], [facility], . tel:[phone] Referring Provider: Betty Merlos, [facility] [address], [place], [facility]. tel:[phone] Office/outpat ient Visit, [facility], [address] [place] [address] [address], [place], [place], [address], [place] tel:[phone] [facility] No Information Apr-1 0-200 7 Grecia Hernández. [address] , [address], [place], [facility], . tel:[phone] Office/outpat ient Visit, [facility], [address] [place], [place] [address] [address], [place], [place], [address], [place] tel:[phone] [facility] No Information 0 3-200 7 Wu OD Boris. [address] , [address], [place], [address], . tel:[phone] Office/outpat ient Visit, [facility], [address], [place], [place], [address], [place] tel:[phone] [facility] No Information 3-[address] , [address], [place], [address], . tel:[phone] Family History Family Member Type Diagnosis Age At Onset No Information Payers Payer name Insurance type Covered constitution party ID Authoriza tion(s) Medicaid [facility] [id number] Social History Type Description Quantity Date Captured Comments Sex Female Smoking Status No Information Chief Complaint And Reason For Visit No Information Reason For Referral Reason For Referral No Information History Of Present Illness Encounter Date Complaint History Of Prese nt Illness No Information Functional Status Date Functional Assessmen t No Information Instructions Date Instruction Additional Infor mation No Information Assessments Type Assessment Date No Information Patient Care Teams Name Effective Dates (start - stop) Status Members No Information
--- OUTSIDE RECORDS SUMMARY | 2024-06-03 13:07 | XMS_ITS | Clinical Summary ---
Author Organization [facility] Address [address] [place] [address] Care Team Providers Care Ophthalmic Photographer Name Role Phone Hebert Chicas MD Primary Care Provider + Allergies Active Allergy Reactions Criticality Noted Date Comments Penicillins Hives High 03/04/2017 Medications LUMIGAN 0.01 % solution INT 1 GTT INTO OU HS 4 02/16/2017 Active amLODIPine (NORVASC) 2.5 mg tablet TK 1 T PO QD 0 02/09/2017 Active RESTASIS 0.05 % emulsion INT 1 GTT IN OU BID UTD 3 01/26/2017 Active esomeprazole (NexIUM) 40 mg Capsule, Delayed Release(E.C.) TK 1 C PO QD 1 02/04/2017 Active dorzolamide (TRUSOPT) 2 % solution 02/12/2017 Active valsartan-hydroC HLOROthiazide (DIOVAN HCT) 320-12.5 mg tablet TK 1 T PO QD 2 01/11/2017 Active rosuvastatin (CRESTOR) 10 mg tablet TK 1 T PO QD 1 01/15/2017 Active GLUCOSAMINE/HORTENCIA DR SWAPNIL Stanton SOD (OSTEO BI-FLEX ORAL) Take 1 Tablet by mouth. 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[employer] Gender Identity Not on file Sexual Orientation Not on file Last Filed Vital Signs Vital Sign Reading Time Taken Comments Blood Pressure 158/84 09/09/2017 10:58 AM CDT Pulse 64 09/09/2017 10:58 AM CDT Temperature 36.8 C (98.3 F) 09/09/2017 10:58 AM CDT Respiratory Rate 18 09/09/2017 10:58 AM CDT Oxygen Saturation 97% 09/09/2017 10:58 AM CDT Inhaled Oxygen Concentration - - Weight 64.4 kg (142 lb) 09/09/2017 10:58 AM CDT Height 157.5 cm (5' 2 ) 09/09/2017 10:58 AM CDT Body Mass Index 25.97 09/09/2017 10:58 AM CDT Plan of Treatment Health Maintenance Due Date Last Done Comments DTAP/TDAP/TD VACCINES (1 - Tdap) 1957 PNEUMOCOCCAL VACCINE 50+ YEARS (1 of 1 - PCV) 04/14/18 89 ZOSTER VACCINE (1 of 2) 1988 OSTEOPOROSIS SCREENING 2003 RSV VACCINE (60+ or ) (1 - 1-dose 75+ series) 2013 INFLUENZA VACCINE (#1) 2023 Insurance [facility] [id number] Care Teams Ophthalmic Photographer Relationship Specialty Start Date End Date Hebert Chicas MD [address] [place] [address] PCP - General Internal Medicine 03/04/17
== END 2024-06-03 12:47 | disposition home or self-care (01) ==
LOC: ANHLAB 12:48
PROVIDERS: PCP Family Medicine; Visit Provider Plastic Surgery
DX: L90.5 Scar conditions and fibrosis of skin (principal)
CPT/HCPCS: 88304

== ENCOUNTER 2024-06-20 16:03 | Inpatient (IN) | payer MEDICARE, MEDICAID, SELFPAY ==
[2024-06-20] VITALS (17 sets, daily range): BP systolic 139–153; BP diastolic 64–82; PULSE 94–98; RESP 16–20; TEMP 36.6–36.7; O2SAT 88–99
--- NOTE | ~2024-06-20 | XR_ITS ---
EXAMINATION: XR surgery orthopedic DATE: 06/23/2024 16:00 INDICATION: Left hip pinning TECHNIQUE: 2 fluoroscopic images of the left hip were obtained during procedure performed by Dr. Charli alcala. Radiologist was not present for the imaging or procedure. The amount of fluoroscopy time used du ring this procedure was 2.7 minutes. COMPARISON: 06/20/2024 FINDINGS: Interval reduction to near-anatomic alignment of the previously mildly displaced subcapital fracture of the proximal left femur. The fracture is now fixed with 3 cannulated lag screws. Mild osteoarthrit is at the left hip. No new fractures identified. IMPRESSION: 1. Near-anatomic alignment post reduction lag screw fixation of a left femoral subcapital fracture. Reviewed, dictated and finalized at location B.
--- NOTE | ~2024-06-20 | XR_ITS ---
XR hip LT 2V w AP pelvis Ordering provider: Belkis Leggett III, DO History: . fall . Comparison: None. FINDINGS: BONES: Impacted fracture in the left femoral neck. HIP JOINT SPACES: Right hip arthroplasty. SACROILIAC JOINT SPACES/LUMBAR SPINE: The sacroiliac joint spaces are normal. Mild degenerative lee es of the visualized lower lumbar spine. PUBIC SYMPHYSIS: Pubic symphysitis. SOFT TISSUES: Normal. IMPRESSION: Fracture of the left femoral neck. Right hip total arthroplasty. Reviewed, dictated and finalized at location A.
--- NOTE | ~2024-06-20 | XR_ITS ---
XR chest 1V Ordering provider: Belkis Leggett History: 84 years Female with . FRACTURE . Comparison: February 05, 2018 FINDINGS: MEDIASTINUM: The cardiac silhouette is not enlarged. Bilateral hilar calcifications. LUNGS: No infiltrates, effusions or pneumothorax. OTHER: No free air under the diaphragm. IMPRESSION: No acute cardiopulmonary pathology. Reviewed, dictated and finalized at location A.
--- NOTE | 2024-06-20 16:54 | ECG_ITS ---
Test Date: 2024-06-20 17:03:51 Measurements Intervals [place] Rate: 99 P: 61 NE: 155 QRS: 29 QRSD: 92 T: 37 QT: 326 QTc: 420 Interpretive Statements SINUS RHYTHM Compared to ECG 09/25/2023 12:26:45 No significant changes Electronically Signed On 06-21-2024 15:57:13 CDT by Mango Bruce M.D.
[2024-06-20 17:11] LABS: Basophils Percent Auto 0.4 % (0.2-1.2); Eosinophils Absolute Auto 0.3 K/mm3 (0-0.3); Eosinophils Percent Auto 2.3 % (0-4.4); Hematocrit 38.5 % (37.0-47.0); Hemoglobin 12.5 g/dL (12.0-15.0); Immature Granulocyte Absolute 0.21 K/mm3 (0.00-0.031); Immature Granulocyte Percent A 1.9 % (0-0.5); Lymphocytes Absolute Auto 1.21 K/mm3 (0.9-3.2); Lymphocytes Percent Auto 10.7 % (18.3-44.2); Mean Corpuscular HGB Conc 32.5 g/dl (32-36); Mean Corpuscular Hemoglobin 28.8 pg (26-34); Mean Corpuscular Volume 88.7 fl (80-100); Mean Platelet Volume 12.1 fl (7.4-10.4); Monocytes Absolute Auto 0.9 K/mm3 (0.1-0.6); Monocytes Percent Auto 7.6 % (2.6-8.5); Neutrophils Absolute Auto 8.7 K/mm3 (1.3-6.7); Neutrophils Percent Auto 77.1 % (45.5-73.1); Platelet Count Result 230 k/mm3 (150-375); Red Blood Count 4.34 M/mm3 (4.2-5.4); Red Cell Distribution Width 14.1 % (11.5-14.5); White Blood Count 11.3 K/mm3 (4.5-10.0)
[2024-06-20 17:20] LABS: Alanine Aminotransferase 35 U/L (6-35); Albumin Level 4.2 g/dL (3.5-5.1); Alkaline Phosphatase 95 U/L (38-126); Anion Gap 8 mmol/L (4-12); Aspartate Amino Transferase 35 U/L (14-36); Bilirubin,Total 0.4 mg/dL (0.2-1.3); Blood Urea Nitrogen 20 mg/dL (7-17); Calcium 9.9 mg/dL (8.4-10.2); Carbon Dioxide 28 mmol/L (22-30); Chloride 101 mmol/L (98-107); Estimated CRCL calculation 36 ml/min; Estimated Glomerular Filt Rate > 60; Glucose 139 mg/dL (65-110); Potassium 3.4 mmol/L (3.4-5.0); Sodium 137 mmol/L (137-145)
[2024-06-20 17:34] LABS: Prothrombin Time 13.9 Seconds (11.1-14.7)
--- NOTE | 2024-06-20 17:47 | ED.FALL ---
HPI - Fall General Chief Complaint: Fall Stated Complaint: fall-hip pain Time Seen by Provider: 06/20/24 17:32 History of Present Illness HPI Narrative: Pt twisted and felt pop in left hip and fell. Pt complains of left hip pain and not able to move or stand. Pt denies other injury. Pt has had a right hip replacement by Dr Lui and knee replacement Related Data Home Medications ?Medication ?Instructions ?Recorded ?Confirmed ?Last Taken ?Type bimatoprost 0.01 % eye drops 1 drp EACH EYE HS 01/23/21 02/19/24 11/30/23 History (Lumigan) cyclosporine 0.05 % eye drops in a 1 drp EACH EYE Q12H 01/23/21 02/19/24 11/30/23 History dropperette (Restasis) dorzolamide 2 %-timolol 0.5 % (PF) 1 drp EACH EYE BID 01/23/21 02/19/24 11/30/23 History eye drops acetaminophen 500 mg capsule 500 mg PO Q6H PRN Pain 11/20/23 02/19/24 11/24/23 History ascorbic acid (vitamin C) 500 mg 500 mg PO DAILY 11/20/23 02/19/24 11/24/23 History capsule cholecalciferol (vitamin D3) 50 50 mcg PO DAILY 11/20/23 02/19/24 11/24/23 History mcg (2,000 unit) tablet cyanocobalamin (vitamin B-12) 500 500 mcg PO DAILY 11/20/23 02/19/24 11/24/23 History mcg tablet docosahexaenoic acid (dha)-epa 120 1 cap PO DAILY 11/20/23 02/19/24 11/24/23 History mg-180 mg capsule (Fish Oil) ferrous sulfate 325 mg (65 mg 325 mg PO EVERY OTHER DAY 11/20/23 02/19/24 11/24/23 History iron) tablet glucosamine-chondroitin 250 mg-200 1 tablet PO DAILY 11/20/23 02/19/24 11/24/23 History mg tablet (Osteo Bi-Flex) mmllgwocjwem-adzopooj-kirbey 1 tablet PO DAILY 11/20/23 02/19/24 11/24/23 History tablet (Multivitamin 50 Plus tablet) vit 1 tablet PO DAILY 11/20/23 02/19/24 11/24/23 History Z-eufyycd-hoicygnrx-rutin-mvak106 500 mg-50 mg-25 mg-40 mg tablet (Bioflex) Allergies Allergy/AdvReac Type Severity Reaction Status Date / Time Penicillins Allergy Unknown hives Verified 06/20/24 16:08 Review of Systems Review of Systems: All systems reviewed & are unremarkable except as noted in HPI and below PMFSH Past Medical History Medical History Other fatigue Pre-diabetes HLD (hyperlipidemia) Benign essential hypertension Chronic GERD Dry eyes, bilateral Glaucoma History of colon polyps Other and unspecified hyperlipidemia Primary osteoarthritis of both knees Primary osteoarthritis of right hip Surgical History Surgical History Presence of right artificial hip joint Family History Family History Father Malignant neoplasm of prostate Family history of diabetes mellitus in first degree relative Other Acute myocardial infarction Family history of arthritis Family history of gout Family history of malignant neoplasm Hypertension Social History Social History Social History: She is living at [facility]. POA: daughter Valeria. She has a living will. DNR. Years smoked: 10 Smoking status: Never smoker Tobacco type: cigarettes Second hand tobacco smoke exposure: No Smoking end date: 03/30/80 Additional smoking assessment comments: DENIES ANY FORM OF TOBACCO USE Alcohol intake: never Substance use: never Substance use type: does not use Do You Feel Safe in your Home?: Yes Lack of Transportation: No Lack of Food: Never True Current Housing: I Have Housing Concerned About Future Housing: No Difficulty Paying Gas/Electric Bills: No Difficulty Paying for Meds: No Currently Unemployed: No Education: High School Diploma/GED Difficulty w/ Childcare or Family Care: No Living arrangements: alone Spiritual care concerns: No Exam Const: General: healthy appearing and no acute distress Nutritional Appearance: well nourished Orientation/consciousness: patient oriented x3 Limitations: no limitations HENMT: Head: normal to inspection Eyes: Pupils: Equal, round and reactive pupils present EOM: EOMs intact bilaterally Neck: Neck: normal visual inspection Chest: Chest palpation & inspection: normal inspection of the chest Resp: Effort & Inspection: normal respiratory effort Auscultation: clear to auscultation bilaterally Cardio: Rate: regular rate Rhythm: regular rhythm GI: Auscultation: normal bowel sounds Course Vital Signs Vital signs: Vital Signs Temperature 98.1 F 06/20/24 16:02 Pulse Rate 94 06/20/24 16:02 Respiratory Rate 18 06/20/24 16:02 Blood Pressure 148/64 H 06/20/24 16:02 Pulse Oximetry 98 06/20/24 16:02 Oxygen Delivery Room Air 06/20/24 16:02 Temperature 98.1 F 06/20/24 16:02 Pulse Rate 94 06/20/24 16:02 Respiratory Rate 18 06/20/24 16:02 Blood Pressure 148/64 H 06/20/24 16:08 Pulse Oximetry 96 06/20/24 16:19 Oxygen Delivery Room Air 06/20/24 16:02 MDM - Fall MDM Narrative Medical decision making narrative: Pt twisted and felt pop in her left hip and fell and landed on hip. Pt denies other injury. x ray shows impacted femoral neck fx. Discussed with Dr Lui will do surgery tomorrow if we can admit to [facility] for medical management. will give some morphine for pain and zofran for nausea. discussed with Ashley Dela Cruz and agrees to admit. Lab Data 06/20/24 17:01 06/20/24 17:00 Labs: Lab Results 06/20/24 06/20/24 Range/Units 17:00 17:01 WBC 11.3 H (4.5-10.0) K/mm3 RBC 4.34 (4.2-5.4) M/mm3 Hgb 12.5 D (12.0-15.0) g/dL Hct 38.5 (37.0-47.0) % MCV 88.7 (80-100) fl MCH 28.8 (26-34) pg MCHC 32.5 (32-36) g/dl RDW 14.1 (11.5-14.5) % Plt Count 230 (150-375) k/mm3 MPV 12.1 H (7.4-10.4) fl Immature Gran % (Auto) 1.9 H (0-0.5) % Neut % (Auto) 77.1 H (45.5-73.1) % Lymph % (Auto) 10.7 L (18.3-44.2) % Dickens % (Auto) 7.6 (2.6-8.5) % Eos % (Auto) 2.3 (0-4.4) % Baso % (Auto) 0.4 (0.2-1.2) % Lymph # (Auto) 1.21 (0.9-3.2) K/mm3 Dickens # (Auto) 0.9 H (0.1-0.6) K/mm3 Eos # (Auto) 0.3 (0-0.3) K/mm3 Baso # (Auto) 0.0 (0.0-0.1) K/mm3 Abs Immat Gran (auto) 0.21 H (0.00-0.031) K/mm3 Absolute Neuts (auto) 8.7 H (1.3-6.7) K/mm3 Absolute Nucleated RBC 0.000 (0.0-0.012) K/mm3 Nucleated RBC % 0.0 (0.0-0.2) % PT 13.9 (11.1-14.7) Seconds INR 1.0 Sodium 137 (137-145) mmol/L Potassium 3.4 (3.4-5.0) mmol/L Chloride 101 (98-107) mmol/L Carbon Dioxide 28 (22-30) mmol/L Anion Gap 8 (4-12) mmol/L BUN 20 H (7-17) mg/dL Creatinine 0.85 (0.7-1.0) mg/dL Estim Creat Clear Calc 36 ml/min Estimated GFR > 60 (59 - ) Glucose 139 H (65-110) mg/dL Calcium 9.9 (8.4-10.2) mg/dL Total Bilirubin 0.4 (0.2-1.3) mg/dL AST 35 (14-36) U/L ALT 35 (6-35) U/L Alkaline Phosphatase 95 (38-126) U/L Total Protein 7.0 (6.3-8.2) g/dL Albumin 4.2 (3.5-5.1) g/dL Discharge Plan Discharge Clinical Impression: Closed hip fracture Patient Disposition: Still a Patient Condition: Stable Patient Language: Belarusian Prescriptions: No Action Restasis 0.05 % dropperette 1 drp EACH EYE Q12H Lumigan 0.01 % drops 1 drp EACH EYE HS dorzolamide-timolol (PF) 2-0.5 % drops 1 drp EACH EYE BID (DME) Rollator walker with seat See Rx Instructions .Route .MEDSUPPLY Qty: 1 0RF Rx Instructions: As directed cholecalciferol (vitamin D3) 50 mcg (2,000 unit) Tablet 50 mcg PO DAILY cyanocobalamin (vitamin B-12) 500 mcg Tablet 500 mcg PO DAILY Fish Oil 120-180 mg Capsule 1 cap PO DAILY Bioflex 451-73-61-40 mg Tablet 1 tablet PO DAILY Multivitamin 50 Plus Tablet 1 tablet PO DAILY ascorbic acid (vitamin C) 500 mg Capsule 500 mg PO DAILY ferrous sulfate 325 mg (65 mg iron) Tablet 325 mg PO EVERY OTHER DAY acetaminophen 500 mg Capsule 500 mg PO Q6H PRN (Reason: Pain) glucosamine-chondroitin [Osteo Bi-Flex] 250-200 mg Tablet 1 tablet PO DAILY Rx Instructions: give after food/meal aspirin 325 mg tablet,delayed release (DR/EC) 325 mg PO DAILY Qty: 20 0RF amlodipine 2.5 mg tablet 2.5 mg PO DAILY Qty: 100 4RF valsartan-hydrochlorothiazide 320-12.5 mg tablet 1 tablet PO DAILY Qty: 100 3RF esomeprazole magnesium 40 mg capsule,delayed release(DR/EC) See Rx Instructions .ROUTE .COMPLEX Qty: 100 3RF Dose Instruction: TAKE 1 CAPSULE BY MOUTH DAILY Rx Instructions: TAKE 1 CAPSULE BY MOUTH DAILY rosuvastatin 20 mg tablet 20 mg PO DAILY Qty: 100 3RF Follow-up/Referrals: Estela Hoffman MD [Primary Care Provider] -
[2024-06-20] MEDS: ONDANSETRON INJ 4 MG/2 ML VIAL IV PUSH (18:04)
[2024-06-20] MEDS: MORPHINE SULFATE (*CRX) 2 MG/ML INJ IV PUSH ×2 (18:04→21:58)
--- OUTSIDE RECORDS SUMMARY | 2024-06-20 19:02 | XMS_ITS | Clinical Summary ---
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
--- OUTSIDE RECORDS SUMMARY | 2024-06-20 19:02 | XMS_ITS | Continuity of Care Document ---
Author Organization [facility] Address [address] [place] [address] Phone Care Team Providers Care Brickmason Contractor Name Role Phone Betty Paige Unavailable Unavailable [...] Diagnoses Date Provider Providers Copied on Encounter [facility], [address], [place], [place], [id number], [place] tel:[phone] [facility] No Information 0-201 0 Grecia Alaniz [address] [facility] [address] , [address], [place], [address], [place]. tel:[phone] Referring Provider: Betty Merlos, [address], [place], [place], [facility]. tel:[phone] Office/outpat ient Visit, [facility], [address] [facility], [place], [place], [id number], tel:[phone] [facility] No Information Jun-2 7-201 0 Grecia Alnaiz [address] , [address], [place], [place], [facility], . tel:[phone] Office/outpat ient Visit, Est [facility], [address], [place], [place], [id number], tel:[phone] [facility] No Information Dec-2 2-200 9 Grecia Hernández. [address] [facility] , [address], [place], [facility], . tel:[phone] Referring Provider: Betty Merlos, [address], [place], [facility]. tel:[phone] [facility], [address] [place] [address] [address], [place], [place], [id number], tel:[phone] [facility] No Information Oct-1 0-200 9 Grecia Alaniz [address] , [address], [place], [facility], . tel:[phone] Referring Provider: Betty Merlos, [address], [place], [facility]. tel:[phone] [facility], [address], [place], [place], [address], [place] tel:[phone] [facility] No Information Apr-2 4-200 9 Grecia Hernández. [address] , [address], [place], [facility], . tel:[phone] Office/outpat ient Visit, Est [facility], [address], [place], [place], [id number], [place] tel:[phone] [facility] No Information 0-200 9 Grecia Alaniz [address] , [address], [place], [address], [place]. tel:[phone] Office/outpat ient Visit, [facility], [address], [place], [place], [address], [place] tel:[phone] [facility] No Information 5-200 8 Grecia Alaniz [address] , [address], [place], [facility], [place]. tel:[phone] Office/outpat ient Visit, [facility], [address], [place], [place], [address], [place] tel:[phone] [facility] No Information 6-200 8 Grecia Alaniz [address] , [address], [place], [address], [place]. tel:[phone] [facility], [address], [place], [place], [address], [place] tel:[phone] [facility] No Information 4-200 8 Grecia Alaniz [address] , [address], [place], [facility], [place]. tel:[phone] Referring Provider: Betty Merlos [address], [place], [facility]. tel:[phone] Office/outpat ient Visit, [facility], [address], [place], [place], [address], [place] tel:[phone] [facility] No Information May- 4-200 8 Grecia Alaniz [address], [place], [facility], . tel:[phone] [facility], [address] [place] [address] [address], [place], [place], [address], tel:[phone] [facility] No Information Dec-0 6-200 7 Wu OD Boris. [address] [facility] , [address], [place], [facility], . tel:[phone] Office/outpat ient Visit, [facility], [address] [place] [address] [address], [place], [place], [address], [place] tel:[phone] [facility] No Information Nov-0 9-200 7 Grecia Hernández. [facility] , [address], [place], [facility], . tel:[phone] Referring Provider: Betty Merlos, [address] [place], [place] [address], [place], [facility]. tel:[phone] [facility], [address] [place] [address] [address], [place], [place], [id number], [place] tel:[phone] [facility] No Information Rivas-0 2-200 7 Grecia Hernández. [facility] , [address], [place], [facility], . tel:[phone] Referring Provider: Betty Merlos, [facility] [address], [place], [facility]. tel:[phone] Office/outpat ient Visit, [facility], [address] [place] [address] [address], [place], [place], [address], [place] tel:[phone] [facility] No Information Apr-1 0-200 7 Grecia Hernández. [address] [facility] [address] , [address], [place], [facility], . tel:[phone] Office/outpat ient Visit, [facility], [address] [place], [place] [address]st [address], [place], [place], [address], [place] tel:[phone] [facility] No Information 0 3-200 7 Wu OD Boris. [address] , [address], [place], [address], . tel:[phone] Office/outpat ient Visit, [facility], [address], [place], [place], [address], [place] tel:[phone] [facility] No Information 3-200 7 Paige Betty. [address] [facility] , [address], [place], [address], . tel:[phone] Family History Family Member Type Diagnosis Age At Onset No Information Payers Payer name Insurance type Covered libertarian ID Authoriza tion(s) Medicaid [facility] [id number] Social History Type Description Quantity Date Captured [...]
--- NOTE | 2024-06-20 20:32 | ADMGEN ---
This patient, Kriss Felix, was admitted to 3 Med Surg Room 306-02. Patient/family oriented to hospital policies and general routines including ID bracelet, bed and alarms, visiting hours, pain management, procedures, bathroom and other care routines, personal items, smoking policy, room service/diet, and visiting hours. Information on how to activate the Rapid Response Team has been discussed. Patient/Family are encouraged to report perceived risks to care and to ask questions if they do not understand what they are told or what they should do.
--- NOTE | 2024-06-20 20:49 | P.HP_ITS ---
H&P: HPI History of Present Illness Date/Time: 06/20/24 21:49 Chief Complaint: Left groin and hip pain Narrative: 84-year-old loquacious female with a past medical history a prior right hip replacement, left knee replacement, vitamin-D deficiency and essential hypertension who presented to the ER from home with left groin and hip pain. The patient reports that she had gotten up from bed and lost her balance. Before she even hit the floor she felt early twist and had severe pain in her left groin. She reports her pain is long she lives laying still and not moving is minimal. If she tries to move her leg at all her pain is severe. She denies any syncope, lightheadedness or vertigo prior to her fall. She did have a fall a couple of weeks ago and has some residual left wrist pain. She denies any chest pain or palpitations. She denies any shortness of breath. She does have a cane and a rolling walker at home neither of 1 was she using at the time of her fall. She reports that she immediately called her utilization manager for assistance and EMS brought her to the hospital. She reports that she just recently recovered from a viral illness I cause diarrhea. But she has had normal bowel movements for the last couple of days. She denies any dysuria or changes in urinary frequency. Bagley catheter was placed in the ER due to the immobility. She has a scab to the bridge of the nose due to recent skin biopsy with benign pathology. Review of Systems 2 Review of Systems: 12 systems were reviewed with pertinent positives and negatives per HPI. Except as documented in the HPI, all other systems were reviewed and are negative. 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 Lee Presence of right artificial hip joint Family History Family History Father Malignant neoplasm of prostate Family history of diabetes mellitus in first degree relative Other Acute myocardial infarction Family history of arthritis Family history of gout Family history of malignant neoplasm Hypertension Social History Social History (Updated 06/20/24 @ 22:28 by Candida Abrams DO) Social History: She is living at [facility]. She has a distant history of smoking for few years. She used to drink alcohol on social occasions but has not done so in many years. She denies illicit substance use. She raised 3 children. 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 Code status: DNR/DNI POA: Valeria (daughter) Smoking packs per day: 1.5 Smoking cigarettes per day: 30.0 Years smoked: 5 Smoking pack-years: 7.50 Smoking status: Former smoker Second hand tobacco smoke exposure: No Smoking end date: 03/30/60 Alcohol intake: never Substance use: never Substance use type: does not use Do You Feel Safe in your Home?: Yes Lack of Transportation: No Lack of Food: Never True Current Housing: I Have Housing Concerned About Future Housing: No Difficulty Paying Gas/Electric Bills: No Difficulty Paying for Meds: No Currently Unemployed: No Education: High School Diploma/GED Difficulty w/ Childcare or Family Care: No Living arrangements: alone Spiritual care concerns: No Meds Home Medications and Allergies Home Medications ?Medication ?Instructions ?Recorded ?Confirmed ?Type bimatoprost 0.01 % eye drops 1 drp EACH EYE HS 01/23/21 06/20/24 History (Lumigan) cyclosporine 0.05 % eye drops in a 1 drp EACH EYE Q12H 01/23/21 06/20/24 History dropperette (Restasis) dorzolamide 2 %-timolol 0.5 % (PF) 1 drp EACH EYE BID 01/23/21 06/20/24 History eye drops amlodipine 2.5 mg tablet 2.5 mg PO DAILY #100 tabs 06/15/23 06/20/24 Rx Rollator walker with seat #1 ea 08/26/23 06/20/24 Rx acetaminophen 500 mg capsule 500 mg PO Q6H PRN Pain 11/20/23 06/20/24 History docosahexaenoic acid (dha)-epa 120 1 cap PO DAILY 11/20/23 06/20/24 History mg-180 mg capsule (Fish Oil) ferrous sulfate 325 mg (65 mg 325 mg PO EVERY OTHER DAY 11/20/23 06/20/24 History iron) tablet lkwpnlxoamxy-ingiiwcz-omkcze 1 tablet PO DAILY 11/20/23 06/20/24 History tablet (Multivitamin 50 Plus tablet) valsartan 320 1 tablet PO DAILY #100 tabs 02/02/24 06/20/24 Rx mg-hydrochlorothiazide 12.5 mg tablet esomeprazole magnesium 40 mg See Rx Instructions .Route 03/28/24 06/20/24 Rx capsule,delayed release .COMPLEX #100 caps rosuvastatin 20 mg tablet 20 mg PO DAILY #100 tabs 06/16/24 06/20/24 Rx Allergies Allergy/AdvReac Type Severity Reaction Status Date / Time Penicillins Allergy Unknown hives Verified 06/20/24 16:08 Vital Signs Vital Signs - 24 hr 06/20/24 16:02 06/20/24 16:06 06/20/24 16:08 Temperature 98.1 F Pulse Rate 94 Respiratory Rate 18 Blood Pressure 148/64 H 148/64 H Pulse Oximetry 98 97 96 Oxygen Delivery Room Air 06/20/24 16:19 06/20/24 17:27 06/20/24 17:30 Temperature Pulse Rate Respiratory Rate Blood Pressure Pulse Oximetry 96 98 96 Oxygen Delivery 06/20/24 17:31 06/20/24 17:45 06/20/24 18:00 Temperature Pulse Rate Respiratory Rate Blood Pressure 152/82 H Pulse Oximetry 98 98 99 Oxygen Delivery 06/20/24 18:01 06/20/24 18:15 06/20/24 18:30 Temperature Pulse Rate Respiratory Rate Blood Pressure 153/74 H Pulse Oximetry 96 95 96 Oxygen Delivery 06/20/24 18:31 06/20/24 18:45 06/20/24 19:00 Temperature Pulse Rate Respiratory Rate Blood Pressure 152/70 H Pulse Oximetry 94 88 L 96 Oxygen Delivery 06/20/24 19:23 Temperature 97.8 F Pulse Rate 98 Respiratory Rate 16 Blood Pressure 146/75 H Pulse Oximetry 99 Oxygen Delivery Exam 2 Narrative: Weight 68 kg BMI 29.3 Const: Other: Well-developed, well-nourished, appears younger than stated age HENMT: Other: Upper dentures in place, mucous membranes are moist, no oral pharyngeal erythema, fair dentition in the lower jaw, scab to the bridge of the nose Eyes: Other: Pupils are equal and reactive with evidence of bilateral lens replacements, no conjunctival pallor, no scleral icterus Neck: Other: Mild JVD, no lymphadenopathy, anterior neck scar due to thyroid biopsy Resp: Other: Clear to auscultation bilaterally, no increased work of breathing Cardio: Other: Regular rate, regular rhythm, 2+ bilateral radial pedal pulses, no murmur GI: Other: Soft, nontender, nondistended, positive bowel sounds : Other: Bagley catheter in place with a small amount of clear yellow urine Skin: Other: Scab to the bridge of the nose, otherwise mild pallor, non jaundice, normal temperature to touch Neuro: Other: Alert oriented x4, speech is clear, no facial asymmetry, no localizing neurologic deficits noted during the course of conversation Extrem: Other: No clubbing, cyanosis or edema, left groin pain with movement were contraction of the left lower extremity or hip, distal extremity is neurovascularly intact Psych: Other: Loquacious, vivacious, pleasant and cooperative, appropriate mood and affect, judgment and insight intact H&P: Results Labs Labs: Laboratory Tests 06/20/24 17:01 06/20/24 17:00 06/20/24 06/20/24 17:00 17:01 WBC 11.3 H RBC 4.34 Hgb 12.5 D Hct 38.5 MCV 88.7 MCH 28.8 MCHC 32.5 RDW 14.1 Plt Count 230 MPV 12.1 H Immature Gran % (Auto) 1.9 H Neut % (Auto) 77.1 H Lymph % (Auto) 10.7 L [place] % (Auto) 7.6 Eos % (Auto) 2.3 Baso % (Auto) 0.4 Lymph # (Auto) 1.21 [place] # (Auto) 0.9 H Eos # (Auto) 0.3 Baso # (Auto) 0.0 Abs Immat Gran (auto) 0.21 H Absolute Neuts (auto) 8.7 H Absolute Nucleated RBC 0.000 Nucleated RBC % 0.0 PT 13.9 INR 1.0 Sodium 137 Potassium 3.4 Chloride 101 Carbon Dioxide 28 Anion Gap 8 BUN 20 H Creatinine 0.85 Estim Creat Clear Calc 36 Estimated GFR > 60 Glucose 139 H Calcium 9.9 Total Bilirubin 0.4 AST 35 ALT 35 Alkaline Phosphatase 95 Total Protein 7.0 Albumin 4.2 Impressions Hip/Pelvis X-Ray 06/20/24 16:43 IMPRESSION: Fracture of the left femoral neck. Right hip total arthroplasty. Chest X-Ray 06/20/24 16:47 IMPRESSION: No acute cardiopulmonary pathology. EKG: Normal sinus rhythm rate 99 QTC 420. Cardiology interpretation non available. All imaging and EKGs personally reviewed and interpreted. And unless stated otherwise agree with radiologic and cardiology interpretation. Assessment and Plan Assessment and plan (1) Fracture of neck of left femur: Qualifiers: Encounter type: initial encounter Fracture type: closed Qualified Code(s): S72.002A - Fracture of unspecified part of neck of left femur, initial encounter for closed fracture Code(s): S72.002A - Fracture of unspecified part of neck of left femur, initial encounter for closed fracture Status: Acute (2) Benign essential hypertension: Code(s): I10 - Essential (primary) hypertension Status: Acute (3) Multiple falls: Code(s): R29.6 - Repeated falls Status: Acute Plan Patient had femoral neck fracture. It sounds as if the patient actually fractured her femoral neck subsequently resulting in fall. Although she does have history of recent fall about 2 weeks ago. Orthopedic surgery has been consulted. Patient will be NPO at midnight. P.r.n. pain medications and nausea medications have been ordered. The patient's medical conditions are stable and her blood pressure is well controlled. And blood pressure medications will be continued. Patient will be placed on fall precautions. Quality VTE Prophylaxis VTE prophylaxis: mechanical ordered (SCDs) Hospitalist [facility] Advance Care Plan I have confirmed that the patient's Advanced Care Plan is present, code status is documented, or surrogate decision maker is listed in patient medical record.: Yes Medication Reconciliation I have utilized all available resources to obtain, update and review the patients current medications (includes all prescriptions, OTC, herbals, cannabis, and nutritional supplements).: Yes
[2024-06-20] MEDS: BISACODYL 5 MG TABLET EC PO (22:03)
[2024-06-21 05:47] VITALS: BP 135/67; PULSE 92; RESP 18; TEMP 36.4; O2SAT 91
--- NOTE | 2024-06-21 07:57 | P.PNIM_ITS ---
Progress Note: A&P Assessment and Plan (1) Fracture of neck of left femur: Qualifiers: Encounter type: initial encounter Fracture type: closed Qualified Code(s): S72.002A - Fracture of unspecified part of neck of left femur, initial encounter for closed fracture Code(s): S72.002A - Fracture of unspecified part of neck of left femur, initial encounter for closed fracture Status: Acute Assessment and Plan: * Left hip x-ray showing fracture of the left femoral neck, right hip total arthroplasty * Dr. Lee consulted * Continue pain control * Continue nielsen for now * planned surgery for 4:00 p.m. tomorrow * NPO after midnight * EKG shown NSR with a rate of 99, QTc 420 * continue bedrest activity orders * SCD's for DVT prophylaxis (2) Multiple falls: Code(s): R29.6 - Repeated falls Status: Acute Assessment and Plan: s/p ground level fall. * continue fall precautions * Case coordination consulted for rehab placement (3) Benign essential hypertension: Code(s): I10 - Essential (primary) hypertension Status: Acute Assessment and Plan: * Blood pressures 135/67-146/75 * continue amlodipine, HCTZ, and Losartan (4) HLD (hyperlipidemia): Qualifiers: Hyperlipidemia type: unspecified Qualified Code(s): E78.5 - Hyperlipidemia, unspecified Code(s): E78.5 - Hyperlipidemia, unspecified Status: Acute Assessment and Plan: * continue Rosuvastatin Time Spent With Patient Time with patient: 25 - 35 minutes Subjective Date/time seen: 06/21/24 07:57 Interval history: Interval summary: This is an 84 year old female with a significant past medical history of pre- diabetes, hyperlipidemia, hypertension, GERD, Glaucoma, former smoker who presented to the hospital for left hip pain after a fall. Patient has had a right total hip and total knee replaced by Dr. Lee in the past. Left hip x- ray shown fracture of the left femoral neck, right hip total arthroplasty. Chest x-ray was negative. Initial labs shown a WBC 11.3, INR 1.0, BG 139, otherwise unremarkable. EKG shown NSR with a rate of 99, QTc 420. Patient was given pain and antiemetics in the ER. Dr. Lee was consulted. Subjective: patient denies any fever, chills, nausea, vomiting, diarrhea, abdominal pain, chest pain, shortness a breath. She states when she fell she lost balance landing on her left side. She has history of multiple falls this year. She did have a bout of diarrhea about a week ago that seemed to get her weaker. Labs and imaging reviewed. Review of Systems Review of Systems: All systems reviewed & are unremarkable except as noted in HPI and below Exam Narrative: General: In no acute distress, well nourished Head: atraumatic, no encephalopathy Eyes: PERRLA, sclera clear ENT: moist mucous membranes, nasal passages clear Neck: supple, no JVD, no adenopathy, trachea midline Cardiac: Normal S1 and S2. RRR, No murmur, gallops or friction rubs, peripheral pulses intact. Respiratory: Lungs clear to auscultation, no adventitious lung sounds , currently on room air Gastrointestinal: soft, non-distended, non-tender, normoactive bowel sounds. : Nielsen catheter in place draining clear yellow urine Extremities: moves all extremities well, no edema, limited range of motion in left leg Skin: clean, dry, intact. No wounds or lesions. Neuro: Alert and oriented x4, cranial nerves intact, no neuro deficits. Psych: normal mood, normal affect, interactive Objective Data Vital Signs Vital Signs: Vital Signs - 24 hr 06/20/24 16:02 06/20/24 16:06 06/20/24 16:08 Temperature 98.1 F Pulse Rate 94 Respiratory Rate 18 Blood Pressure 148/64 H 148/64 H Pulse Oximetry 98 97 96 Oxygen Delivery Room Air 06/20/24 16:19 06/20/24 17:27 06/20/24 17:30 Temperature Pulse Rate Respiratory Rate Blood Pressure Pulse Oximetry 96 98 96 Oxygen Delivery 06/20/24 17:31 06/20/24 17:45 06/20/24 18:00 Temperature Pulse Rate Respiratory Rate Blood Pressure 152/82 H Pulse Oximetry 98 98 99 Oxygen Delivery 06/20/24 18:01 06/20/24 18:15 06/20/24 18:30 Temperature Pulse Rate Respiratory Rate Blood Pressure 153/74 H Pulse Oximetry 96 95 96 Oxygen Delivery 06/20/24 18:31 06/20/24 18:45 06/20/24 19:00 Temperature Pulse Rate Respiratory Rate Blood Pressure 152/70 H Pulse Oximetry 94 88 L 96 Oxygen Delivery 06/20/24 19:23 06/20/24 21:57 06/21/24 05:47 Temperature 97.8 F 98.1 F 97.6 F Pulse Rate 98 98 92 Respiratory Rate 16 20 18 Blood Pressure 146/75 H 139/65 135/67 Pulse Oximetry 99 93 91 Oxygen Delivery Intake/Output Intake/Output: Intake & Output 06/18/24 06/19/24 06/20/24 06/21/24 23:59 23:59 23:59 23:59 Intake Total 0 Output Total 100 Balance -100 Meds/Results Medications: Active Medications Generic Name Dose Route Start Last Admin Trade Name Freq PRN Reason Stop Dose Admin Acetaminophen 650 mg 06/20/24 19:57 Acetaminophen 325 Mg Tablet PO Q4H PRN Mild Pain (1-3) or Fever Hydrocodone Bitart/Acetaminophen 1 tab 06/20/24 19:58 Hydrocodone/Acetaminophen (*Crx) 5-325 Mg Tablet PO Q4H PRN Pain Rated 4-6 Al Hydrox/Mg Hydrox/Simethicone 30 ml 06/20/24 19:56 Mag Hydrox/Al Hydrox/Simeth 30 Ml Udc PO Q6H PRN Indigestion Amlodipine Besylate 2.5 mg 06/21/24 09:00 Amlodipine Besylate 2.5 Mg Tablet PO DAILY WILIAM Bisacodyl 5 mg 06/20/24 19:56 06/20/24 22:03 Bisacodyl 5 Mg Tablet Ec PO 5 mg QAM PRN Administration Constipation Cyclosporine 1 drop 06/20/24 22:30 06/20/24 23:36 Cyclosporine 0.4 Ml Ophth Solution EACH EYE Not Given Q12HR WILIAM Docusate Sodium 100 mg 06/21/24 21:00 Docusate Sodium 100 Mg Capsule PO Q12HR WILIAM Dorzolamide/Timolol 1 drop 06/21/24 09:00 Dorzolamide/Timolol Ophth Marizol 10 Ml Bottle EACH EYE Q12HR WILIAM Ferrous Sulfate 325 mg 06/22/24 09:00 Ferrous Sulfate [address] BY MOUTH Q48H WILIAM Hydrochlorothiazide 12.5 mg 06/21/24 09:00 Hydrochlorothiazide 12.5 Mg Capsule PO QAM WILIAM Latanoprost 1 drop 06/21/24 21:00 Latanoprost 0.005% Op Soln 2.5 Ml Btl EACH EYE [facility] Morphine Sulfate 2 mg 06/20/24 18:50 06/20/24 21:58 Morphine Sulfate (*Crx) 2 Mg/Ml Inj IV PUSH 2 mg Q4H PRN Administration Pain Rated 7-10 Multivitamins/Minerals 1 tablet 06/21/24 09:00 Opti-Gen Tab PO DAILY [facility] Ondansetron HCl 4 mg 06/20/24 19:56 Ondansetron Inj 4 Mg/2 Ml Vial IV PUSH Q4H PRN Nausea And Vomiting Pantoprazole Sodium 40 mg 06/21/24 09:00 Pantoprazole 40 Mg Tablet PO QAM [facility] Rosuvastatin Calcium 20 mg 06/21/24 09:00 Rosuvastatin 20 Mg Tablet PO DAILY [facility] Valsartan 320 mg 06/21/24 09:00 Valsartan 160 Mg Tablet PO QAM [facility] Radiology Results: ITS Impressions Hip/Pelvis X-Ray 06/20/24 16:43 IMPRESSION: Fracture of the left femoral neck. Right hip total arthroplasty. Chest X-Ray 06/20/24 16:47 IMPRESSION: No acute cardiopulmonary pathology. Labs Labs: Laboratory Results - last 24 hr 06/20/24 06/20/24 17:00 17:01 WBC 11.3 H RBC 4.34 Hgb 12.5 D Hct 38.5 MCV 88.7 MCH 28.8 MCHC 32.5 RDW 14.1 Plt Count 230 MPV 12.1 H Immature Gran % (Auto) 1.9 H Neut % (Auto) 77.1 H Lymph % (Auto) 10.7 L [place] % (Auto) 7.6 Eos % (Auto) 2.3 Baso % (Auto) 0.4 Lymph # (Auto) 1.21 [place] # (Auto) 0.9 H Eos # (Auto) 0.3 Baso # (Auto) 0.0 Abs Immat Gran (auto) 0.21 H Absolute Neuts (auto) 8.7 H Absolute Nucleated RBC 0.000 Nucleated RBC % 0.0 PT 13.9 INR 1.0 Sodium 137 Potassium 3.4 Chloride 101 Carbon Dioxide 28 Anion Gap 8 BUN 20 H Creatinine 0.85 Estim Creat Clear Calc 36 Estimated GFR > 60 Glucose 139 H Calcium 9.9 Total Bilirubin 0.4 AST 35 ALT 35 Alkaline Phosphatase 95 Total Protein 7.0 Albumin 4.2 Quality VTE Prophylaxis VTE prophylaxis: mechanical ordered (SCDs)
[2024-06-21] MEDS: DORZOLAMIDE/TIMOLOL OPHTH SOL 10 ML BOTTLE 1 DROP EACH EYE ×2 (08:50→20:38)
[2024-06-21] MEDS: ROSUVASTATIN 20 MG TABLET PO (09:36)
[2024-06-21] MEDS: HYDROcodone/acetaminophen (*CRX) 5-325 MG TABLET 1 TAB PO ×2 (09:36→16:53)
[2024-06-21] MEDS: hydroCHLOROthiazide 12.5 MG CAPSULE PO (09:36)
[2024-06-21] MEDS: PANTOPRAZOLE 40 MG TABLET PO (09:36)
--- NOTE | 2024-06-21 09:36 | PM.CNOR ---
Assessment and Plan Assessment and plan (1) Closed hip fracture: Qualifiers: Encounter type: initial encounter Laterality: left Qualified Code(s): S72.002A - Fracture of unspecified part of neck of left femur, initial encounter for closed fracture <HANNAH Roa - Last Filed: 06/21/24 12:23> Code(s): S72.009A - Fracture of unspecified part of neck of unspecified femur, initial encounter for closed fracture <HANNAH Roa - Last Filed: 06/21/24 12:23> Status: Acute <HANNAH Roa - Last Filed: 06/21/24 12:23> Assessment and Plan: Radiographs left hip in the emergency room revealed fracture of the left femoral neck. The fracture type and injury as well as radiographs discussed with the patient and family. Discussed nonoperative and operative treatment options with the patient. The patients questions were answered. The patient desires operative treatment. Discussed Left Hip CRPP vs. Hemiarthroplasty Risks of surgery including but not limited to neurovascular damage, wound complications, blood clot, pulmonary embolus, stroke, myocardial infarction, anesthetic risks up to and including were reviewed. Continued pain and possible dysfunction were explained. No guarantees were offered. The patient understands and wishes to proceed. Plan: Left Hip CRPP vs. Hemiarthroplasty by Dr. Lee NPO at midnight. Obtain Consent. Pain control. Bedrest. HOLD anticoagulation. Okay to resume diet today. <HANNAH Roa - Last Filed: 06/21/24 12:23> Assessment and Plan: Reviewed history, exam, radiographs and current labs with attending MD and covering surgeon, Dr. Lee, who agrees with current plan as indicated above. No further recommendations from Dr. Lee at this time. <HANNAH Roa - Last Filed: 06/21/24 12:23> History of Present Illness HPI Consult date: 06/21/24 <HANNAH Roa - Last Filed: 06/21/24 12:23> 06/22/24 <Sven Lee MD - Last Filed: 06/22/24 07:17> Consult reason: fracture <HANNAH Roa - Last Filed: 06/21/24 12:23> Chief complaint: Left hip fx <HANNAH Roa - Last Filed: 06/21/24 12:23> Narrative: 84-year-old female admitted after a fall and twisting injury at home which resulted in a left hip fracture. She is well known to the Orthopedic service for a left total knee arthroplasty by Dr. Lee in November of 2023 and previous right total hip arthroplasty by Dr. Lee in July of 2016. She currently resides at an apartment, independently. She is ambulatory at baseline. She did very well status post left TKA. She reports that she was cleaning her room after a viral illness last week when she went to round the corner and felt a twist and pop followed by inability to bear weight on the left lower extremity. She presented to the emergency room via ambulance. Radiographs in the ER of the left hip revealed a fracture of the left femoral neck. she was admitted for further evaluation orthopedic consult. <HANNAH Roa - Last Filed: 06/21/24 12:23> Review of Systems Review of Systems: All systems reviewed & are unremarkable except as noted in HPI and below <HANNAH Roa - Last Filed: 06/21/24 12:23> [facility] Past Medical History Medical History: Medical History Pre-diabetes HLD (hyperlipidemia) Benign essential hypertension Chronic GERD Dry eyes, bilateral Glaucoma History of colon polyps <HANNAH Roa - Last Filed: 06/21/24 12:23> Surgical History Surgical History: Surgical History S/P thyroid biopsy Benign pathology History of total abdominal hysterectomy and bilateral salpingo-oophorectomy At age 38 Status post cataract extraction of both eyes with insertion of intraocular lens History of total left knee replacement (12/01/23) Dr. Lee Presence of right artificial hip joint <HANNAH Roa - Last Filed: 06/21/24 12:23> Family History Family History: Family History Father Malignant neoplasm of prostate Family history of diabetes mellitus in first degree relative Other Acute myocardial infarction Family history of arthritis Family history of gout Family history of malignant neoplasm Hypertension <HANNAH Roa - Last Filed: 06/21/24 12:23> Social History Social History: Social History Social History: She is living at [facility]. She has a distant history of smoking for few years. She used to drink alcohol on social occasions but has not done so in many years. She denies illicit substance use. She raised 3 children. 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 Code status: DNR/DNI POA: Valeria (daughter) Smoking packs per day: 1.5 Smoking cigarettes per day: 30.0 Years smoked: 5 Smoking pack-years: 7.50 Smoking status: Former smoker Second hand tobacco smoke exposure: No Smoking end date: 03/30/60 Alcohol intake: never Substance use: never Substance use type: does not use Do You Feel Safe in your Home?: Yes Lack of Transportation: No Lack of Food: Never True Current Housing: I Have Housing Concerned About Future Housing: No Difficulty Paying Gas/Electric Bills: No Difficulty Paying for Meds: No Currently Unemployed: No Education: High School Diploma/GED Difficulty w/ Childcare or Family Care: No Living arrangements: alone Spiritual care concerns: No <HANNAH Roa - Last Filed: 06/21/24 12:23> Meds Home Medications and Allergies Home medications: Home Medications ?Medication ?Instructions ?Recorded ?Confirmed ?Type bimatoprost 0.01 % eye drops 1 drp EACH EYE HS 01/23/21 06/20/24 History (Lumigan) cyclosporine 0.05 % eye drops in a 1 drp EACH EYE Q12H 01/23/21 06/20/24 History dropperette (Restasis) dorzolamide 2 %-timolol 0.5 % (PF) 1 drp EACH EYE BID 01/23/21 06/20/24 History eye drops amlodipine 2.5 mg tablet 2.5 mg PO DAILY #100 tabs 06/15/23 06/20/24 Rx Rollator walker with seat #1 ea 08/26/23 06/20/24 Rx acetaminophen 500 mg capsule 500 mg PO Q6H PRN Pain 11/20/23 06/20/24 History docosahexaenoic acid (dha)-epa 120 1 cap PO DAILY 11/20/23 06/20/24 History mg-180 mg capsule (Fish Oil) ferrous sulfate 325 mg (65 mg 325 mg PO EVERY OTHER DAY 11/20/23 06/20/24 History iron) tablet qrihuxxdvzkq-tdvoiteg-evbhej 1 tablet PO DAILY 11/20/23 06/20/24 History tablet (Multivitamin 50 Plus tablet) valsartan 320 1 tablet PO DAILY #100 tabs 02/02/24 06/20/24 Rx mg-hydrochlorothiazide 12.5 mg tablet esomeprazole magnesium 40 mg See Rx Instructions .Route 03/28/24 06/20/24 Rx capsule,delayed release .COMPLEX #100 caps rosuvastatin 20 mg tablet 20 mg PO DAILY #100 tabs 06/16/24 06/20/24 Rx <HANNAH Roa - Last Filed: 06/21/24 12:23> Allergies/Adverse reactions: Allergies Allergy/AdvReac Type Severity Reaction Status Date / Time Penicillins Allergy Unknown hives Verified 06/20/24 16:08 <HANNAH Roa - Last Filed: 06/21/24 12:23> Vital Signs Vital Signs - 24 hr 06/20/24 16:02 06/20/24 16:06 06/20/24 16:08 Temperature 36.7 C Pulse Rate 94 Respiratory Rate 18 Blood Pressure 148/64 H 148/64 H Pulse Oximetry 98 97 96 Oxygen Delivery Room Air 06/20/24 16:19 06/20/24 17:27 06/20/24 17:30 Temperature Pulse Rate Respiratory Rate Blood Pressure Pulse Oximetry 96 98 96 Oxygen Delivery 06/20/24 17:31 06/20/24 17:45 06/20/24 18:00 Temperature Pulse Rate Respiratory Rate Blood Pressure 152/82 H Pulse Oximetry 98 98 99 Oxygen Delivery 06/20/24 18:01 06/20/24 18:15 06/20/24 18:30 Temperature Pulse Rate Respiratory Rate Blood Pressure 153/74 H Pulse Oximetry 96 95 96 Oxygen Delivery 06/20/24 18:31 06/20/24 18:45 06/20/24 19:00 Temperature Pulse Rate Respiratory Rate Blood Pressure 152/70 H Pulse Oximetry 94 88 L 96 Oxygen Delivery 06/20/24 19:23 06/20/24 21:57 06/21/24 05:47 Temperature 36.6 C 36.7 C 36.4 C Pulse Rate 98 98 92 Respiratory Rate 16 20 18 Blood Pressure 146/75 H 139/65 135/67 Pulse Oximetry 99 93 91 Oxygen Delivery <BI RoaP - Last Filed: 06/21/24 12:23> Exam Const: General: cooperative, comfortable and average body habitus <Jessica Mccarthy [facility] - Last Filed: 06/21/24 12:23> Nutritional Appearance: average body habitus <Jessica Mccarthy [facility] - Last Filed: 06/21/24 12:23> Orientation/consciousness: patient oriented x3 <BI RoaP - Last Filed: 06/21/24 12:23> Limitations: no limitations <Jessica Mccarthy [facility] - Last Filed: 06/21/24 12:23> HENMT: Head: normal to inspection and No palpable skull fracture present <BI RoaP - Last Filed: 06/21/24 12:23> Ears: hearing grossly normal bilaterally and external ears normal <Jessica Mccarthy [facility] - Last Filed: 06/21/24 12:23> Face/Nose/Sinus: Normal external nose present, Normal nares present, Normal nasal mucous membranes and turbinates present and normal facial exam <Jessica Mccarthy [facility] - Last Filed: 06/21/24 12:23> Face and sinus: normal facial exam <BI RoaP - Last Filed: 06/21/24 12:23> Mouth: Yes Normal oral and palatal mucosa present <Jessica Mccarthy [facility] - Last Filed: 06/21/24 12:23> Teeth and gingiva: dentition normal <Jessica Mccarthy [facility] - Last Filed: 06/21/24 12:23> Eyes: General: appearance normal, both eyes and all related structures <BI RoaP - Last Filed: 06/21/24 12:23> Sclera: sclerae normal <BI RoaP - Last Filed: 06/21/24 12:23> Pupils: Equal, round and reactive pupils present <Jessica Mccarthy [facility] - Last Filed: 06/21/24 12:23> Neck: Neck: normal visual inspection and full ROM <BI RoaP - Last Filed: 06/21/24 12:23> Chest: Other: Right Limb Restrictions s/p breast cancer <Jessica Mccarthy [facility] - Last Filed: 06/21/24 12:23> Resp: Effort & Inspection: normal respiratory effort and able to speak in complete sentences <BI RoaP - Last Filed: 06/21/24 12:23> Cardio: Jugular venous distension: no JVD <Jessica Mccarthy [facility] - Last Filed: 06/21/24 12:23> Rate: regular rate <Jessica Mccarthy [facility] - Last Filed: 06/21/24 12:23> Rhythm: regular rhythm <Jessica Mccarthy [facility] - Last Filed: 06/21/24 12:23> GI: Inspection: normal to inspection <Jessica Mccarthy [facility] - Last Filed: 06/21/24 12:23> GI Palp: No abdominal tenderness <Jessica Mccarthy [facility] - Last Filed: 06/21/24 12:23> : General: Yes no CVA tenderness <BI RoaP - Last Filed: 06/21/24 12:23> Urinary Catheter: Urinary Catheter: patent and draining and urine clear <BI RoaP - Last Filed: 06/21/24 12:23> Back/Spine/Pelvis: Back: no CVA tenderness <BI RoaP - Last Filed: 06/21/24 12:23> Skin: General skin exam: normal color and no rashes or lesions noted <BI RoaP - Last Filed: 06/21/24 12:23> Wounds: no wounds <Jessicasa Marissa Mccarthy [facility] - Last Filed: 06/21/24 12:23> Neuro: General: patient oriented x3, No gait normal (NWB ), No moves all extremities and Unable to assess gait (bedrest ) <Jessicasa Marissa Mccarthy [employer] - Last Filed: 06/21/24 12:23> Cranial nerves: Yes Equal, round and reactive pupils present <Jessica Mccarthy [facility] - Last Filed: 06/21/24 12:23> Cognition (Neuro): normal cognition <Jessicasa Marissa Mccarthy [employer] - Last Filed: 06/21/24 12:23> Speech: normal speech <BI RoaP - Last Filed: 06/21/24 12:23> Gait exam (Neuro): Unable to assess gait (bedrest ) <Jessica Mccarthy [employer] - Last Filed: 06/21/24 12:23> Sensory Exam: normal sensation <Jessicasa Marissa Mccarthy [facility] - Last Filed: 06/21/24 12:23> Extrem: Right upper extremity: normal to inspection, full ROM and normal capillary refill <BI RoaP - Last Filed: 06/21/24 12:23> Left upper extremity: normal to inspection, full ROM and normal capillary refill <Jessica Mccarthy [facility] - Last Filed: 06/21/24 12:23> Right lower extremity: normal to inspection, full ROM, normal capillary refill, hip/thigh Details: normal to inspection and normal ROM; no tenderness and no swelling and knee Details: normal to inspection and normal ROM; no tenderness and no swelling <Jessica Mccarthy [facility] - Last Filed: 06/21/24 12:23> Left lower extremity: hip/thigh Details: abnormal to inspection Details: foreshortened and externally rotated, tenderness Location: of the hip Location: laterally, anteromedially and over the great trochanter, swelling Location: of the hip and of the proximal upper leg and abnormal ROM ( Limited due to fracture); ROM abnormal ( Range of motion strength testing deferred due to fracture.), ankle ( positive ankle dorsiflexion /plantar flexion) Details: normal to inspection and no edema; no tenderness and no swelling and foot Details: normal capillary refill, vascular exam Details: dorsalis pedis pulse present and motor-sensory exam light-touch normal <HANNAH Roa - Last Filed: 06/21/24 12:23> Results Labs Result Diagrams: 06/20/24 17:01 06/20/24 17:00 <HANNAH Roa - Last Filed: 06/21/24 12:23> Labs: Abnormal lab results 06/20/24 06/20/24 Range/Units 17:00 17:01 WBC 11.3 H (4.5-10.0) K/mm3 MPV 12.1 H (7.4-10.4) fl Immature Gran % (Auto) 1.9 H (0-0.5) % Neut % (Auto) 77.1 H (45.5-73.1) % Lymph % (Auto) 10.7 L (18.3-44.2) % [place] # (Auto) 0.9 H (0.1-0.6) K/mm3 Abs Immat Gran (auto) 0.21 H (0.00-0.031) K/mm3 Absolute Neuts (auto) 8.7 H (1.3-6.7) K/mm3 BUN 20 H (7-17) mg/dL Glucose 139 H (65-110) mg/dL H & H 06/20/24 Range/Units 17:01 Hgb 12.5 D (12.0-15.0) g/dL Hct 38.5 (37.0-47.0) % Coagulation 06/20/24 Range/Units 17:00 INR 1.0 All other labs normal. <HNANAH Roa - Last Filed: 06/21/24 12:23>
[2024-06-21] MEDS: amLODIPine BESYLATE 2.5 MG TABLET PO (09:37)
[2024-06-21 14:00] VITALS: BP 134/57; PULSE 88; RESP 20; TEMP 36.8; O2SAT 95
[2024-06-21 20:00] VITALS: PULSE 68; RESP 18; O2SAT 95
[2024-06-21] MEDS: DOCUSATE SODIUM 100 MG CAPSULE PO (20:37)
[2024-06-21] MEDS: LATANOPROST 0.005% OP SOLN 2.5 ML BTL 1 DROP EACH EYE (20:37)
[2024-06-21] MEDS: cycloSPORINE 0.4 ML OPHTH SOLUTION 1 DROP EACH EYE (20:37)
[2024-06-21 20:52] VITALS: BP 133/69; PULSE 68; RESP 18; TEMP 36.8; O2SAT 95
[2024-06-22 06:03] VITALS: BP 131/85; PULSE 85; RESP 16; TEMP 36.7; O2SAT 90
--- NOTE | 2024-06-22 07:17 | WPDHPUPDATE1 ---
History and Physical Update Update Date/Time: 06/22/24 07:17 History and Physical has been reviewed, including an updated exam of the patient. There are NO changes in the patient's condition. Risks, benefits, and alternatives have been discussed and questions answered. Patient agrees to proceed with procedure.
[2024-06-22 08:21] LABS: Basophils Absolute Auto 0.1 K/mm3 (0.0-0.1); Basophils Percent Auto 0.3 % (0.2-1.2); Eosinophils Absolute Auto 0.5 K/mm3 (0-0.3); Eosinophils Percent Auto 3.1 % (0-4.4); Hematocrit 37.7 % (37.0-47.0); Hemoglobin 11.8 g/dL (12.0-15.0); Immature Granulocyte Absolute 0.09 K/mm3 (0.00-0.031); Immature Granulocyte Percent A 0.6 % (0-0.5); Lymphocytes Absolute Auto 1.19 K/mm3 (0.9-3.2); Lymphocytes Percent Auto 7.8 % (18.3-44.2); Mean Corpuscular HGB Conc 31.3 g/dl (32-36); Mean Corpuscular Hemoglobin 28.3 pg (26-34); Mean Corpuscular Volume 90.4 fl (80-100); Monocytes Percent Auto 6.7 % (2.6-8.5); Neutrophils Absolute Auto 12.4 K/mm3 (1.3-6.7); Neutrophils Percent Auto 81.5 % (45.5-73.1); Platelet Count Result 204 k/mm3 (150-375); Red Blood Count 4.17 M/mm3 (4.2-5.4); Red Cell Distribution Width 14.2 % (11.5-14.5); White Blood Count 15.2 K/mm3 (4.5-10.0)
[2024-06-22 08:32] LABS: Alanine Aminotransferase 26 U/L (6-35); Albumin Level 3.9 g/dL (3.5-5.1); Alkaline Phosphatase 83 U/L (38-126); Anion Gap 10 mmol/L (4-12); Aspartate Amino Transferase 26 U/L (14-36); Bilirubin,Total 0.8 mg/dL (0.2-1.3); Blood Urea Nitrogen 14 mg/dL (7-17); Calcium 9.8 mg/dL (8.4-10.2); Carbon Dioxide 28 mmol/L (22-30); Chloride 98 mmol/L (98-107); Estimated CRCL calculation 41 ml/min; Estimated Glomerular Filt Rate > 60; Glucose 102 mg/dL (65-110); Potassium 3.9 mmol/L (3.4-5.0); Sodium 136 mmol/L (137-145)
[2024-06-22] MEDS: DORZOLAMIDE/TIMOLOL OPHTH SOL 10 ML BOTTLE 1 DROP EACH EYE (11:01)
[2024-06-22] MEDS: cycloSPORINE 0.4 ML OPHTH SOLUTION 1 DROP EACH EYE (11:01)
--- NOTE | 2024-06-22 11:38 | P.PNIM_ITS ---
Progress Note: A&P Assessment and Plan (1) Fracture of neck of left femur: Qualifiers: Encounter type: initial encounter Fracture type: closed Qualified Code(s): S72.002A - Fracture of unspecified part of neck of left femur, initial encounter for closed fracture Code(s): S72.002A - Fracture of unspecified part of neck of left femur, initial encounter for closed fracture Status: Acute Assessment and Plan: * Left hip x-ray showing fracture of the left femoral neck, right hip total arthroplasty * Dr. Lee consulted * Continue pain control * Continue nielsen for now * planned surgery for 4:00 p.m. tomorrow * NPO after midnight * EKG shown NSR with a rate of 99, QTc 420 * continue bedrest activity orders * SCD's for DVT prophylaxis 06/22: * Surgery 06/22/2024 * DVT prophylaxis per surgery postop * PT OT postop (2) Multiple falls: Code(s): R29.6 - Repeated falls Status: Acute Assessment and Plan: s/p ground level fall. * continue fall precautions * Case coordination consulted for rehab placement (3) Benign essential hypertension: Code(s): I10 - Essential (primary) hypertension Status: Acute Assessment and Plan: * Blood pressures 135/67-146/75 * continue amlodipine, HCTZ, and Losartan (4) HLD (hyperlipidemia): Qualifiers: Hyperlipidemia type: unspecified Qualified Code(s): E78.5 - Hyperlipidemia, unspecified Code(s): E78.5 - Hyperlipidemia, unspecified Status: Acute Assessment and Plan: * continue Rosuvastatin Plan Code status: Full code per patient DVT prophylaxis: SCD Stress ulcer prophylaxis: Protonix 40 daily PT/OT notes: PT/OT post-op Disposition: Patient admitted for left hip fracture surgery scheduled today 06/22/2024 PT/OT postop will likely need rehab placement at discharge. Time Spent With Patient Time with patient: 15 - 25 minutes Subjective Date/time seen: 06/22/24 11:38 Interval history: This is an 84 year old female. Left hip x-ray shown fracture of the left femoral neck, right hip total arthroplasty. surgical repair scheduled for today 06/22/2024 06/22/24: assumed care Patient comfortable in no acute distress or pain waiting on Surgery scheduled at 16:00. Denied CP, SOB, N/V. Review of Systems Review of Systems: 12 systems were reviewed with pertinent positives and negatives per HPI. Except as documented in the HPI, all other systems were reviewed and are negative. All systems reviewed & are unremarkable except as noted in HPI and below Exam Narrative: General: In no acute distress, well nourished friendly female in no acute distress Head: atraumatic, no encephalopathy ENT: moist mucous membranes, nasal passages clear Neck: supple, no JVD Cardiac: Normal S1 and S2. RRR Respiratory: Lungs clear to auscultation, no adventitious lung sounds , currently on room air Gastrointestinal: soft, non-distended, non-tender, normoactive bowel sounds. : Nielsen catheter in place draining clear yellow urine Extremities: no edema, limited range of motion in left leg, Pedal Pulse 2+ bilateral Skin: clean, dry, intact. No wounds or lesions. Neuro: Alert and oriented x4 Psych: normal mood, normal affect, interactive Objective Data Vital Signs Vital Signs: Vital Signs - 24 hr 06/21/24 14:00 06/21/24 20:00 06/21/24 20:52 Temperature 98.3 F 98.3 F Pulse Rate 88 68 68 Respiratory Rate 20 18 18 Blood Pressure 134/57 L 133/69 Pulse Oximetry 95 95 95 Oxygen Delivery Room Air 06/22/24 06:03 Temperature 98.0 F Pulse Rate 85 Respiratory Rate 16 Blood Pressure 131/85 Pulse Oximetry 90 Oxygen Delivery Intake/Output Intake/Output: Intake & Output 06/19/24 06/20/24 06/21/24 06/22/24 23:59 23:59 23:59 23:59 Intake Total 790 Output Total 575 450 Balance 215 -450 Meds/Results Medications: Active Medications Generic Name Dose Route Start Last Admin Trade Name Freq PRN Reason Stop Dose Admin Acetaminophen 650 mg 06/20/24 19:57 Acetaminophen 325 Mg Tablet PO Q4H PRN Mild Pain (1-3) or Fever Hydrocodone Bitart/Acetaminophen 1 tab 06/20/24 19:58 06/21/24 16:53 Hydrocodone/Acetaminophen (*Crx) 5-325 Mg Tablet PO 1 tab Q4H PRN Administration Pain Rated 4-6 Al Hydrox/Mg Hydrox/Simethicone 30 ml 06/20/24 19:56 Mag Hydrox/Al Hydrox/Simeth 30 Ml Udc PO Q6H PRN Indigestion Amlodipine Besylate 2.5 mg 06/21/24 09:00 06/21/24 09:37 Amlodipine Besylate 2.5 Mg Tablet PO 2.5 mg DAILY WILIAM Administration Bisacodyl 5 mg 06/20/24 19:56 06/20/24 22:03 Bisacodyl 5 Mg Tablet Ec PO 5 mg QAM PRN Administration Constipation Cyclosporine 1 drop 06/20/24 22:30 06/22/24 11:01 Cyclosporine 0.4 Ml Ophth Solution EACH EYE 1 drop Q12HR WILIAM Administration Docusate Sodium 100 mg 06/21/24 21:00 06/21/24 20:37 Docusate Sodium 100 Mg Capsule PO 100 mg Q12HR WILIAM Administration Dorzolamide/Timolol 1 drop 06/21/24 09:00 06/22/24 11:01 Dorzolamide/Timolol Ophth Marizol 10 Ml Bottle EACH EYE 1 drop Q12HR WILIAM Administration Ferrous Sulfate 325 mg 06/22/24 09:00 Ferrous Sulfate [address] BY MOUTH Q48H WILIAM Hydrochlorothiazide 12.5 mg 06/21/24 09:00 06/21/24 09:36 Hydrochlorothiazide 12.5 Mg Capsule PO 12.5 mg QAM WILIAM Administration Lactated Ringer's 1,000 mls @ 30 mls/hr 06/21/24 16:10 Lr - Lactated Ringers Iv IV CONT .Q24H WILIAM Latanoprost 1 drop 06/21/24 21:00 06/21/24 20:37 Latanoprost 0.005% Op Soln 2.5 Ml Btl EACH EYE 1 drop HS WILIAM Administration Morphine Sulfate 2 mg 06/20/24 18:50 06/20/24 21:58 Morphine Sulfate (*Crx) 2 Mg/Ml Inj IV PUSH 2 mg Q4H PRN Administration Pain Rated 7-10 Multivitamins/Minerals 1 tablet 06/21/24 09:00 06/21/24 16:52 Opti-Gen Tab PO Not Given DAILY [facility] Ondansetron HCl 4 mg 06/20/24 19:56 Ondansetron Inj 4 Mg/2 Ml Vial IV PUSH Q4H PRN Nausea And Vomiting Pantoprazole Sodium 40 mg 06/21/24 09:00 06/21/24 09:36 Pantoprazole 40 Mg Tablet PO 40 mg QAM [facility] Administration Rosuvastatin Calcium 20 mg 06/21/24 09:00 06/21/24 09:36 Rosuvastatin 20 Mg Tablet PO 20 mg DAILY [facility] Administration Valsartan 320 mg 06/21/24 09:00 06/21/24 16:52 Valsartan 160 Mg Tablet PO Not Given QAM [facility] Radiology Results: ITS Impressions Hip/Pelvis X-Ray 06/20/24 16:43 IMPRESSION: Fracture of the left femoral neck. Right hip total arthroplasty. Chest X-Ray 06/20/24 16:47 IMPRESSION: No acute cardiopulmonary pathology. Labs Labs: Laboratory Results - last 24 hr 06/22/24 08:13 WBC 15.2 H RBC 4.17 L Hgb 11.8 L Hct 37.7 MCV 90.4 MCH 28.3 MCHC 31.3 L RDW 14.2 Plt Count 204 MPV 12.0 H Immature Gran % (Auto) 0.6 H Neut % (Auto) 81.5 H Lymph % (Auto) 7.8 L [place] % (Auto) 6.7 Eos % (Auto) 3.1 Baso % (Auto) 0.3 Lymph # (Auto) 1.19 [place] # (Auto) 1.0 H Eos # (Auto) 0.5 H Baso # (Auto) 0.1 Abs Immat Gran (auto) 0.09 H Absolute Neuts (auto) 12.4 H Absolute Nucleated RBC 0.000 Nucleated RBC % 0.0 Sodium 136 L Potassium 3.9 Chloride 98 Carbon Dioxide 28 Anion Gap 10 BUN 14 D Creatinine 0.68 L Estim Creat Clear Calc 41 Estimated GFR > 60 Glucose 102 Calcium 9.8 Total Bilirubin 0.8 AST 26 ALT 26 Alkaline Phosphatase 83 Total Protein 7.0 Albumin 3.9 Quality VTE Prophylaxis VTE prophylaxis: mechanical ordered (SCDs) -Patient's previous records reviewed on admission -ER notes reviewed in detail on admission -discussed all findings and current treatment plan with patient/Family/POA -Consultations reviewed for recommendations -Patient's disposition for safe discharge discussed with returned case inspector Dictation performed by [employer] direct speech recognition software, therefore hosiery mender variants and typographical errors may occur. Hospitalist MIPS Advance Care Plan I have confirmed that the patient's Advanced Care Plan is present, code status is documented, or surrogate decision maker is listed in patient medical record.: Yes Medication Reconciliation I have utilized all available resources to obtain, update and review the patients current medications (includes all prescriptions, OTC, herbals, cannabis, and nutritional supplements).: Yes The patient is not eligible for med reconciliation; the patient is in a emergent medical situation where delaying treatment would jeopardize the patients health.: No
[2024-06-22 14:00] VITALS: BP 141/71; PULSE 86; RESP 18; TEMP 37.4; O2SAT 90
[2024-06-22 21:40] VITALS: BP 163/68; PULSE 84; RESP 16; TEMP 37.1; O2SAT 93
[2024-06-23] VITALS (19 sets, daily range): BP systolic 100–156; BP diastolic 55–88; PULSE 67–89; RESP 12–18; TEMP 36.2–37.2; O2SAT 93–99
[2024-06-23 06:01] LABS: Hematocrit 37.3 % (37.0-47.0); Hemoglobin 11.9 g/dL (12.0-15.0); Mean Corpuscular HGB Conc 31.9 g/dl (32-36); Mean Corpuscular Hemoglobin 28.1 pg (26-34); Mean Corpuscular Volume 88.2 fl (80-100); Mean Platelet Volume 12.4 fl (7.4-10.4); Platelet Count Result 205 k/mm3 (150-375); Red Blood Count 4.23 M/mm3 (4.2-5.4); Red Cell Distribution Width 14.2 % (11.5-14.5); White Blood Count 16.1 K/mm3 (4.5-10.0)
[2024-06-23 06:12] LABS: Alanine Aminotransferase 23 U/L (6-35); Alkaline Phosphatase 82 U/L (38-126); Anion Gap 11 mmol/L (4-12); Aspartate Amino Transferase 26 U/L (14-36); Blood Urea Nitrogen 14 mg/dL (7-17); Calcium 9.9 mg/dL (8.4-10.2); Carbon Dioxide 26 mmol/L (22-30); Chloride 96 mmol/L (98-107); Estimated CRCL calculation 38 ml/min; Estimated Glomerular Filt Rate > 60; Glucose 98 mg/dL (65-110); Potassium 3.5 mmol/L (3.4-5.0); Sodium 133 mmol/L (137-145)
--- NOTE | 2024-06-23 08:43 | PC.NURSE ---
I was notified by JESSICA Isbell about patient's MAR. Medications were missed and not given on 06/22 due to pre-op medications being ordered on 06/21, which remained at top of MAR. Incident Report entered and MAR updated. RN to notify provider today about this incident.
[2024-06-23] MEDS: cycloSPORINE 0.4 ML OPHTH SOLUTION 1 DROP EACH EYE (09:16)
[2024-06-23] MEDS: DORZOLAMIDE/TIMOLOL OPHTH SOL 10 ML BOTTLE 1 DROP EACH EYE (09:17)
--- NOTE | 2024-06-23 10:30 | PC.NURSE ---
Maribell Naqvi NP notified that patient has not had home meds since 06/21/24 in the am. Meds were missed on the MAR
--- NOTE | 2024-06-23 11:54 | P.PNIM_ITS ---
Progress Note: A&P Assessment and Plan (1) Fracture of neck of left femur: Qualifiers: Encounter type: initial encounter Fracture type: closed Qualified Code(s): S72.002A - Fracture of unspecified part of neck of left femur, initial encounter for closed fracture Code(s): S72.002A - Fracture of unspecified part of neck of left femur, initial encounter for closed fracture Status: Acute Assessment and Plan: * Left hip x-ray showing fracture of the left femoral neck, right hip total arthroplasty * Dr. Lee consulted * Continue pain control * Continue nielsen for now * planned surgery for 4:00 p.m. tomorrow * NPO after midnight * EKG shown NSR with a rate of 99, QTc 420 * continue bedrest activity orders * SCD's for DVT prophylaxis 06/22: * Surgery 06/22/2024 * DVT prophylaxis per surgery postop * PT OT postop 06/23: * No change Surgery re-scheduled for today 06/23 (2) Multiple falls: Code(s): R29.6 - Repeated falls Status: Acute Assessment and Plan: s/p ground level fall. * continue fall precautions * Case coordination consulted for rehab placement (3) Benign essential hypertension: Code(s): I10 - Essential (primary) hypertension Status: Acute Assessment and Plan: * Blood pressures 135/67-146/75 * continue amlodipine, HCTZ, and Losartan (4) HLD (hyperlipidemia): Qualifiers: Hyperlipidemia type: unspecified Qualified Code(s): E78.5 - Hyperlipidemia, unspecified Code(s): E78.5 - Hyperlipidemia, unspecified Status: Acute Assessment and Plan: * continue Rosuvastatin Plan Code status: Full code per patient DVT prophylaxis: SCD Stress ulcer prophylaxis: Protonix 40 daily PT/OT notes: PT/OT post-op Disposition: Patient admitted for left hip fracture surgery re-scheduled today 06/23/2024 PT/OT postop will likely need rehab placement at discharge. Time Spent With Patient Time with patient: 15 - 25 minutes Subjective Date/time seen: 06/23/24 11:54 Interval history: This is an 84 year old female. Left hip x-ray shown fracture of the left femoral neck, right hip total arthroplasty. surgical repair scheduled for today 06/22/2024 06/23/2024: Patient with no complaints waiting on surgery was cancelled due to emergent surgeries, patient scheduled for today. Denies pain, CP, SOB, N/V, bilateral pedal pulses 2+. Review of Systems Review of Systems: 12 systems were reviewed with pertinent positives and negatives per HPI. Except as documented in the HPI, all other systems were reviewed and are negative. All systems reviewed & are unremarkable except as noted in HPI and below Exam Narrative: General: In no acute distress, well nourished friendly female in no acute distress Neck: supple, no JVD Cardiac: Normal S1 and S2. RRR Respiratory: Lungs clear to auscultation Gastrointestinal: soft, non-distended, non-tender, normoactive bowel sounds. : Nielsen catheter in place draining clear yellow urine Extremities: no edema, limited range of motion in left leg, Pedal Pulse 2+ bilateral Neuro: Alert and oriented x4 Objective Data Vital Signs Vital Signs: Vital Signs - 24 hr 06/22/24 14:00 06/22/24 20:55 06/22/24 21:40 Temperature 99.4 F 98.8 F Pulse Rate 86 84 Respiratory Rate 18 16 Blood Pressure 141/71 H 163/68 H Pulse Oximetry 90 93 Oxygen Delivery Room Air 06/23/24 06:40 06/23/24 07:40 06/23/24 07:58 Temperature 97.9 F 98.6 F Pulse Rate 89 88 Respiratory Rate 14 16 Blood Pressure 148/67 H 121/63 Pulse Oximetry 93 93 93 Oxygen Delivery Room Air 06/23/24 11:45 Temperature Pulse Rate Respiratory Rate Blood Pressure Pulse Oximetry 94 Oxygen Delivery Room Air Intake/Output Intake/Output: Intake & Output 06/20/24 06/21/24 06/22/24 06/23/24 23:59 23:59 23:59 23:59 Intake Total 790 480 Output Total 575 800 250 Balance 215 -320 -250 Meds/Results Medications: Active Medications Generic Name Dose Route Start Last Admin Trade Name Freq PRN Reason Stop Dose Admin Acetaminophen 650 mg 06/20/24 19:57 Acetaminophen 325 Mg Tablet PO Q4H PRN Mild Pain (1-3) or Fever Hydrocodone Bitart/Acetaminophen 1 tab 06/20/24 19:58 06/21/24 16:53 Hydrocodone/Acetaminophen (*Crx) 5-325 Mg Tablet PO 1 tab Q4H PRN Administration Pain Rated 4-6 Al Hydrox/Mg Hydrox/Simethicone 30 ml 06/20/24 19:56 Mag Hydrox/Al Hydrox/Simeth 30 Ml Udc PO Q6H PRN Indigestion Amlodipine Besylate 2.5 mg 06/21/24 09:00 06/23/24 08:38 Amlodipine Besylate 2.5 Mg Tablet PO Not Given DAILY WILIAM Bisacodyl 5 mg 06/20/24 19:56 06/20/24 22:03 Bisacodyl 5 Mg Tablet Ec PO 5 mg QAM PRN Administration Constipation Cyclosporine 1 drop 06/20/24 22:30 06/23/24 09:16 Cyclosporine 0.4 Ml Ophth Solution EACH EYE 1 drop Q12HR WILIAM Administration Docusate Sodium 100 mg 06/21/24 21:00 06/23/24 09:12 Docusate Sodium 100 Mg Capsule PO Not Given Q12HR WILIAM Dorzolamide/Timolol 1 drop 06/21/24 09:00 06/23/24 09:17 Dorzolamide/Timolol Ophth Marizol 10 Ml Bottle EACH EYE 1 drop Q12HR WILIAM Administration Ferrous Sulfate 325 mg 06/22/24 09:00 06/23/24 08:38 Ferrous Sulfate [address] BY MOUTH Not Given Q48H [facility] Hydrochlorothiazide 12.5 mg 06/21/24 09:00 06/23/24 08:38 Hydrochlorothiazide 12.5 Mg Capsule PO Not Given QAM [facility] Lactated Ringer's 1,000 mls @ 30 mls/hr 06/21/24 16:10 Lr - Lactated Ringers Iv IV CONT .Q24H WILIAM Lactated Ringer's 1,000 mls @ 30 mls/hr 06/23/24 07:40 Lr - Lactated Ringers Iv IV CONT .Q24H [facility] Latanoprost 1 drop 06/21/24 21:00 06/23/24 08:39 Latanoprost 0.005% Op Soln 2.5 Ml Btl EACH EYE Not Given HS [facility] Morphine Sulfate 2 mg 06/20/24 18:50 06/20/24 21:58 Morphine Sulfate (*Crx) 2 Mg/Ml Inj IV PUSH 2 mg Q4H PRN Administration Pain Rated 7-10 Multivitamins/Minerals 1 tablet 06/21/24 09:00 06/23/24 08:39 Opti-Gen Tab PO Not Given DAILY [facility] Ondansetron HCl 4 mg 06/20/24 19:56 Ondansetron Inj 4 Mg/2 Ml Vial IV PUSH Q4H PRN Nausea And Vomiting Pantoprazole Sodium 40 mg 06/21/24 09:00 06/23/24 08:39 Pantoprazole 40 Mg Tablet PO Not Given QAM [facility] Rosuvastatin Calcium 20 mg 06/21/24 09:00 06/23/24 08:39 Rosuvastatin 20 Mg Tablet PO Not Given DAILY [facility] Valsartan 320 mg 06/21/24 09:00 06/23/24 08:39 Valsartan 160 Mg Tablet PO Not Given QAM [facility] Radiology Results: ITS Impressions Hip/Pelvis X-Ray 06/20/24 16:43 IMPRESSION: Fracture of the left femoral neck. Right hip total arthroplasty. Chest X-Ray 06/20/24 16:47 IMPRESSION: No acute cardiopulmonary pathology. Labs Labs: Laboratory Results - last 24 hr 06/23/24 05:30 WBC 16.1 H RBC 4.23 Hgb 11.9 L Hct 37.3 MCV 88.2 MCH 28.1 MCHC 31.9 L RDW 14.2 Plt Count 205 MPV 12.4 H Sodium 133 L Potassium 3.5 Chloride 96 L Carbon Dioxide 26 Anion Gap 11 BUN 14 Creatinine 0.74 Estim Creat Clear Calc 38 Estimated GFR > 60 Glucose 98 Calcium 9.9 Total Bilirubin 1.0 AST 26 ALT 23 Alkaline Phosphatase 82 Total Protein 7.0 Albumin 4.0 Quality VTE Prophylaxis VTE prophylaxis: mechanical ordered (SCDs) -Patient's previous records reviewed on admission -ER notes reviewed in detail on admission -discussed all findings and current treatment plan with patient/Family/POA -Consultations reviewed for recommendations -Patient's disposition for safe discharge discussed with human services case manager Dictation performed by [employer] direct speech recognition software, therefore fire management technician variants and typographical errors may occur. Hospitalist MIPS Advance Care Plan I have confirmed that the patient's Advanced Care Plan is present, code status is documented, or surrogate decision maker is listed in patient medical record.: Yes Medication Reconciliation I have utilized all available resources to obtain, update and review the patients current medications (includes all prescriptions, OTC, herbals, cannabis, and nutritional supplements).: Yes The patient is not eligible for med reconciliation; the patient is in a emergent medical situation where delaying treatment would jeopardize the patients health.: No
[2024-06-23] MEDS: amLODIPine BESYLATE 2.5 MG TABLET PO (12:12)
[2024-06-23] MEDS: TRANEXAMIC ACID 1,000MG/ISO100 1,000 MG/100 ML BAG 200 MG IVPB (14:20)
[2024-06-23] MEDS: LACTATED RINGERS 1,000 ML 30 ML IV CONT (14:20)
[2024-06-23] MEDS: ACETAMINOPHEN 500 MG TABLET 1000 MG PO (14:25)
--- NOTE | 2024-06-23 14:37 | P.PNAN_ITS ---
Anes - Initial Pre Proc Eval Procedure: Operation Date: 06/23/24 15:30 Proposed Procedures p Left Hip Closed Reduction Percutaneous Pinning - Sven Lee MD s Versus Bipolar Left Hip - Sven Lee MD Date/Time: 06/23/24 14:37 Surgeon: Nina Perez APRN Pre Op Diagnosis: Left hip fx Patient Data Age: 84 Gender: F Height: 1.52 m Weight: 59.3 kg Last Vital Signs Temp 37.0 C 06/23/24 07:40 Pulse 88 06/23/24 07:40 Resp 16 06/23/24 07:40 BP 121/63 06/23/24 07:40 Pulse Ox 94 06/23/24 11:45 O2 Del Method Room Air 06/23/24 11:45 Allergies Allergy/AdvReac Type Severity Reaction Status Date / Time Penicillins Allergy Unknown hives Verified 06/20/24 16:08 Home Medications ?Medication ?Instructions ?Recorded ?Confirmed ?Type bimatoprost 0.01 % eye drops 1 drp EACH EYE HS 01/23/21 06/20/24 History (Lumigan) cyclosporine 0.05 % eye drops in a 1 drp EACH EYE Q12H 01/23/21 06/20/24 History dropperette (Restasis) dorzolamide 2 %-timolol 0.5 % (PF) 1 drp EACH EYE BID 01/23/21 06/20/24 History eye drops amlodipine 2.5 mg tablet 2.5 mg PO DAILY #100 tabs 06/15/23 06/20/24 Rx Rollator walker with seat #1 ea 08/26/23 06/20/24 Rx acetaminophen 500 mg capsule 500 mg PO Q6H PRN Pain 11/20/23 06/20/24 History docosahexaenoic acid (dha)-epa 120 1 cap PO DAILY 11/20/23 06/20/24 History mg-180 mg capsule (Fish Oil) ferrous sulfate 325 mg (65 mg 325 mg PO EVERY OTHER DAY 11/20/23 06/20/24 History iron) tablet njshjmajyosr-smcahlil-ivjmwi 1 tablet PO DAILY 11/20/23 06/20/24 History tablet (Multivitamin 50 Plus tablet) valsartan 320 1 tablet PO DAILY #100 tabs 02/02/24 06/20/24 Rx mg-hydrochlorothiazide 12.5 mg tablet esomeprazole magnesium 40 mg See Rx Instructions .Route 03/28/24 06/20/24 Rx capsule,delayed release .COMPLEX #100 caps rosuvastatin 20 mg tablet 20 mg PO DAILY #100 tabs 06/16/24 06/20/24 Rx Laboratory Tests 06/23/24 05:30 WBC 16.1 H K/mm3 (4.5-10.0) RBC 4.23 M/mm3 (4.2-5.4) Hgb 11.9 L g/dL (12.0-15.0) Hct 37.3 % (37.0-47.0) MCV 88.2 fl (80-100) MCH 28.1 pg (26-34) MCHC 31.9 L g/dl (32-36) RDW 14.2 % (11.5-14.5) Plt Count 205 k/mm3 (150-375) MPV 12.4 H fl (7.4-10.4) Sodium 133 L mmol/L (137-145) Potassium 3.5 mmol/L (3.4-5.0) Chloride 96 L mmol/L (98-107) Carbon Dioxide 26 mmol/L (22-30) Anion Gap 11 mmol/L (4-12) BUN 14 mg/dL (7-17) Creatinine 0.74 mg/dL (0.7-1.0) Estim Creat Clear Calc 38 ml/min Estimated GFR > 60 (59 - ) Glucose 98 mg/dL (65-110) Calcium 9.9 mg/dL (8.4-10.2) Total Bilirubin 1.0 mg/dL (0.2-1.3) AST 26 U/L (14-36) ALT 23 U/L (6-35) Alkaline Phosphatase 82 U/L (38-126) Total Protein 7.0 g/dL (6.3-8.2) Albumin 4.0 g/dL (3.5-5.1) Patient hx anesthesia problems: none Family hx anesthesia problems: none Results Review: All pre-operative results and documents have been reviewed as part of the pre- operative evaluation. 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 Lee Presence of right artificial hip joint Family History Family History Father Malignant neoplasm of prostate Family history of diabetes mellitus in first degree relative Other Acute myocardial infarction Family history of arthritis Family history of gout Family history of malignant neoplasm Hypertension Social History Social History Social History: She is living at [facility]. She has a distant history of smoking for few years. She used to drink alcohol on social occasions but has not done so in many years. She denies illicit substance use. She raised 3 children. 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 Code status: DNR/DNI POA: Valeria (daughter) Smoking packs per day: 1.5 Smoking cigarettes per day: 30.0 Years smoked: 5 Smoking pack-years: 7.50 Smoking status: Former smoker Second hand tobacco smoke exposure: No Smoking end date: 03/30/60 Alcohol intake: never Substance use: never Substance use type: does not use Do You Feel Safe in your Home?: Yes Lack of Transportation: No Lack of Food: Never True Current Housing: I Have Housing Concerned About Future Housing: No Difficulty Paying Gas/Electric Bills: No Difficulty Paying for Meds: No Currently Unemployed: No Education: High School Diploma/GED Difficulty w/ Childcare or Family Care: No Living arrangements: alone Spiritual care concerns: No Anes - Eval Final PreProcedure Day of Procedure 06/23/24 14:37 Patient weight: normal Heart: regular rate and rhythm Lungs: clear to auscultation Airway: Mallampati scale class II Neurological: alert and oriented Last oral intake: >/= 8 hours ASA classification: III Emergent: no Anesthetic plan: proceed Anesthesia type and monitoring: general LMA and standard monitoring Results Review: All pre-operative results and documents have been reviewed as part of the pre- operative evaluation. Informed Consent: The patient's anesthetic plan and its attendant risks and benefits were discu ssed with the patient/family/POA. Questions were solicited and answers provided to the satisfaction of the patient/family/POA.
--- NOTE | 2024-06-23 14:52 | WPDHPUPDATE1 ---
History and Physical Update Update Date/Time: 06/23/24 14:52 History and Physical has been reviewed, including an updated exam of the patient. There are NO changes in the patient's condition. Risks, benefits, and alternatives have been discussed and questions answered. Patient agrees to proceed with procedure.
--- NOTE | 2024-06-23 14:55 | SUR.PREOP ---
HAIR REMOVAL AND SCRUB DEFERRED DUE TO PAIN WITH TOUCH OR MOVEMENT
[2024-06-23] MEDS: ceFAZolin 2 GM/D5W 50 ML 2 GM/50 ML BAG IVPB ×2 (15:13→23:17)
--- NOTE | 2024-06-23 17:36 | W.PM.PROC2 ---
Procedure Note - Detailed Date of Procedure 06/23/24 Pre-op Diagnosis Left FEMORAL NECK FRACTURE Post-op Diagnosis Same Procedure Performed CLOSED REDUCTION, PERCUTANEOUS PINNING LEFT FEMORAL NECK FRACTURE Surgeon Sven Lee MD Anesthesia General Description of Procedure THE PATIENT WAS TAKEN TO THE OPERATING ROOM AND PLACED UNDER GENERAL ANESTHESIA. THE PATIENT WAS PLACED ON A FRACTURE TABLE. THE FEMORAL NECK FRACTURE WAS IMAGED WITH C ARM AND REDUCED TO ANATOMIC POSITION. THE LEFT LOWER EXTREMITY WAS PREPPED AND DRAPED IN THE STERIL FASHION FROM THE KNEE TO THE ILIAC CREST. THE INCISION WAS MADE ON THE LATERAL HIP JUST DISTAL TO THE GREATER TROCHANTER DOWN TO THE BONE. BLEEDERS WERE CAUTERIZED. 3 GUIDE PINS WERE PLACED THROUGH THE FEMORAL NECK AND PASSED THE FRACTURE SITE AND IN TO THE SUBCHONDRAL BONE OF THE FEMORAL HEAD. THREE CANNULATED SCREWS WERE PLACED OVER THE GUIDE PINS AND THESE WERE SHOWN TO BE IN GOOD POSITION PER FLUOROSCOPY ON BOTH THE AP AND LATERAL VIEWS. ALL SCREWS HAD EXCELLENT BITES. THE WOUND WAS WASHED WELL. THE DEEP FASCIAL LAYER WAS APPROXIMATED WITH #1 VICRYL SUTURE, THE SUBCUTANEOUS LAYER WITH 2-0 VICRYL AND THE SKIN WAS APPROXIMATED WITH LILIA. A STERILE DRESSING WAS PLACED. THE PATIENT WAS EXTUBATED AND SENT TO RECOVERY ROOM Estimated Blood Loss 20 Urine Output 350 Drains No Complications No immediate complications Condition Stable Disposition PACU
[2024-06-23] MEDS: FAMOTIDINE 20 MG TABLET PO (21:50)
[2024-06-23] MEDS: ASPIRIN 81 MG ENTERIC TABLET PO (21:50)
[2024-06-24 03:44] VITALS: BP 111/63; PULSE 93; RESP 16; TEMP 37.4; O2SAT 91
[2024-06-24 05:27] LABS: Basophils Percent Auto 0.2 % (0.2-1.2); Eosinophils Absolute Auto 0.1 K/mm3 (0-0.3); Hematocrit 33.3 % (37.0-47.0); Hemoglobin 10.5 g/dL (12.0-15.0); Immature Granulocyte Absolute 0.07 K/mm3 (0.00-0.031); Immature Granulocyte Percent A 0.5 % (0-0.5); Lymphocytes Absolute Auto 0.92 K/mm3 (0.9-3.2); Lymphocytes Percent Auto 6.2 % (18.3-44.2); Mean Corpuscular HGB Conc 31.5 g/dl (32-36); Mean Corpuscular Hemoglobin 27.9 pg (26-34); Mean Corpuscular Volume 88.3 fl (80-100); Mean Platelet Volume 12.7 fl (7.4-10.4); Monocytes Absolute Auto 1.3 K/mm3 (0.1-0.6); Monocytes Percent Auto 8.6 % (2.6-8.5); Neutrophils Absolute Auto 12.3 K/mm3 (1.3-6.7); Neutrophils Percent Auto 83.5 % (45.5-73.1); Platelet Count Result 196 k/mm3 (150-375); Red Blood Count 3.77 M/mm3 (4.2-5.4); White Blood Count 14.7 K/mm3 (4.5-10.0)
[2024-06-24 05:41] LABS: Alanine Aminotransferase 23 U/L (6-35); Albumin Level 3.3 g/dL (3.5-5.1); Alkaline Phosphatase 84 U/L (38-126); Anion Gap 9 mmol/L (4-12); Aspartate Amino Transferase 32 U/L (14-36); Bilirubin,Total 0.7 mg/dL (0.2-1.3); Blood Urea Nitrogen 17 mg/dL (7-17); Calcium 9.3 mg/dL (8.4-10.2); Carbon Dioxide 26 mmol/L (22-30); Chloride 98 mmol/L (98-107); Estimated CRCL calculation 36 ml/min; Estimated Glomerular Filt Rate > 60; Glucose 110 mg/dL (65-110); Potassium 3.7 mmol/L (3.4-5.0); Sodium 133 mmol/L (137-145)
[2024-06-24] MEDS: ceFAZolin 2 GM/D5W 50 ML 2 GM/50 ML BAG IVPB ×2 (06:32→15:13)
[2024-06-24 07:44] VITALS: BP 125/60; PULSE 86; RESP 16; TEMP 36.9; O2SAT 95
--- NOTE | 2024-06-24 07:55 | P.PNAN_ITS ---
Anes - Prog Note Post-Op Date/Time: 06/24/24 07:55 Cardiovascular status: normal Respiratory status: normal Airway patency: baseline Mental status: baseline Post-Op hydration status: normal Vital Signs: Last Vital Signs Temp 98.5 F 06/24/24 07:44 Pulse 86 06/24/24 07:44 Resp 16 06/24/24 07:44 BP 125/60 06/24/24 07:44 Pulse Ox 95 06/24/24 07:44 O2 Del Method Room Air 06/23/24 21:25 O2 Flow Rate 2 06/23/24 21:15 FiO2 21 06/23/24 21:25 Pain Score (VAS): 0/10 I/O: Intake & Output 06/23/24 06/23/24 06/24/24 15:59 23:59 07:59 Intake Total 250 300 Output Total 350 700 Balance -100 -400 Laboratory Tests 06/24/24 05:00 06/24/24 05:00 06/24/24 05:00 WBC 14.7 H RBC 3.77 L Hgb 10.5 L Hct 33.3 L MCV 88.3 MCH 27.9 MCHC 31.5 L RDW 14.0 Plt Count 196 MPV 12.7 H Immature Gran % (Auto) 0.5 Neut % (Auto) 83.5 H Lymph % (Auto) 6.2 L [place] % (Auto) 8.6 H Eos % (Auto) 1.0 Baso % (Auto) 0.2 Lymph # (Auto) 0.92 [place] # (Auto) 1.3 H Eos # (Auto) 0.1 Baso # (Auto) 0.0 Abs Immat Gran (auto) 0.07 H Absolute Neuts (auto) 12.3 H Absolute Nucleated RBC 0.000 Nucleated RBC % 0.0 Sodium 133 L Potassium 3.7 Chloride 98 Carbon Dioxide 26 Anion Gap 9 BUN 17 Creatinine 0.78 Estim Creat Clear Calc 36 Estimated GFR > 60 Glucose 110 Calcium 9.3 Total Bilirubin 0.7 AST 32 ALT 23 Alkaline Phosphatase 84 Total Protein 7.0 Albumin 3.3 L Post-procedural complaints: none Patient Feedback: Patient satisfied with anesthetic care.
[2024-06-24 08:00] VITALS: O2SAT 95
[2024-06-24] MEDS: ASPIRIN 81 MG ENTERIC TABLET PO ×2 (08:29→20:52)
[2024-06-24] MEDS: polyethylene glycoL 3350 17 GM POWD.PACK PO (08:29)
[2024-06-24] MEDS: CELECOXIB 200 MG CAPSULE PO (08:29)
[2024-06-24] MEDS: FAMOTIDINE 20 MG TABLET PO ×2 (08:29→20:52)
[2024-06-24] MEDS: SENNA/DOCUSATE SODIUM TABLET 2 TAB PO ×2 (08:29→17:12)
[2024-06-24 08:33] LABS: Magnesium 1.5 mg/dL (1.6-2.3)
[2024-06-24] MEDS: oxyCODONE/ACETAMINOPHEN (*CRX) 5-325 MG TABLET 1 TABLET PO (08:42)
[2024-06-24] MEDS: MAGNESIUM SULF 2 GM/WATER 50ML 2 GM/50 ML BAG IVPB (09:39)
--- NOTE | 2024-06-24 10:56 | P.PNIM_ITS ---
Progress Note: A&P Assessment and Plan (1) Fracture of neck of left femur: Qualifiers: Encounter type: initial encounter Fracture type: closed Qualified Code(s): S72.002A - Fracture of unspecified part of neck of left femur, initial encounter for closed fracture Code(s): S72.002A - Fracture of unspecified part of neck of left femur, initial encounter for closed fracture Status: Acute Assessment and Plan: * Left hip x-ray showing fracture of the left femoral neck, right hip total arthroplasty * Dr. Lee consulted * Continue pain control * Continue nielsen for now * Planned surgery for 4:00 p.m. tomorrow * NPO after midnight * EKG shown NSR with a rate of 99, QTc 420 * continue bedrest activity orders * SCD's for DVT prophylaxis 06/22: * Surgery 06/22/2024 * DVT prophylaxis per surgery postop * PT OT postop 06/23: * No change Surgery re-scheduled for today 06/23 06/24: * Patient sitting up in chair. PT/OT started. Dressing to left hip C/D/I. No redness, swelling, or drainage. (2) Multiple falls: Code(s): R29.6 - Repeated falls Status: Acute Assessment and Plan: s/p ground level fall. * continue fall precautions * Case coordination consulted for rehab placement (3) Benign essential hypertension: Code(s): I10 - Essential (primary) hypertension Status: Acute Assessment and Plan: * Blood pressures 125/60 * continue amlodipine and Losartan (4) HLD (hyperlipidemia): Qualifiers: Hyperlipidemia type: unspecified Qualified Code(s): E78.5 - Hyperlipidemia, unspecified Code(s): E78.5 - Hyperlipidemia, unspecified Status: Acute Assessment and Plan: * continue Rosuvastatin (5) Hypomagnesemia: Code(s): E83.42 - Hypomagnesemia Status: Acute Assessment and Plan: * Magnesium 1.5. * Patient given Magnesium Sulfate 2 gram IVPB x 1. * Monitor levels. Plan Code status: Full code per patient DVT prophylaxis: SCD Stress ulcer prophylaxis: Protonix 40 daily PT/OT notes: PT/OT post-op Disposition: Patient admitted for left hip fracture surgery re-scheduled today 06/23/2024 PT/OT postop will likely need rehab placement at discharge. Subjective Date/time seen: 06/24/24 10:56 Interval history: Patient sitting up in chair. Patient reports no pain at rest. Patient reports pain in her left hip is a 4 with activity, frequent, and aching. Patient denies chest pain, palpitations, headache, dizziness, nausea, or vomiitng. Review of Systems Review of Systems: All systems reviewed & are unremarkable except as noted in HPI and below Exam Const: General: comfortable and no acute distress Resp: Effort & Inspection: normal respiratory effort Auscultation: clear to auscultation bilaterally Cardio: Rate: regular rate Rhythm: regular rhythm GI: GI Palp: Yes Soft to palpation Auscultation: normal bowel sounds Skin: Other: Dressing to left hip intact with no drainage, redness, or swelling. Neuro: Speech: normal speech Extrem: General: no pedal edema Psych: Mental Status: mental status grossly normal Affect: normal affect Objective Data Vital Signs Vital Signs: Vital Signs - 24 hr 06/23/24 11:45 06/23/24 14:45 06/23/24 16:11 Temperature 98.9 F 98.4 F Pulse Rate 82 78 Respiratory Rate 16 18 Blood Pressure 139/55 L 143/66 H Pulse Oximetry 94 95 98 Oxygen Delivery Room Air Room Air Simple Face Mask Oxygen Flow Rate 10 Fraction of Inspired Oxygen 06/23/24 16:25 06/23/24 16:40 06/23/24 16:55 Temperature Pulse Rate 76 82 76 Respiratory Rate 14 14 12 Blood Pressure 152/72 H 144/85 H 148/71 H Pulse Oximetry 99 94 93 Oxygen Delivery Simple Face Mask Room Air Room Air Oxygen Flow Rate 10 Fraction of Inspired Oxygen 06/23/24 17:10 06/23/24 17:25 06/23/24 17:40 Temperature Pulse Rate 73 69 70 Respiratory Rate 16 17 16 Blood Pressure 150/75 H 150/69 H 156/56 H Pulse Oximetry 98 98 98 Oxygen Delivery Nasal Cannula Nasal Cannula Nasal Cannula Oxygen Flow Rate 2 2 2 Fraction of Inspired Oxygen 06/23/24 17:50 06/23/24 18:30 06/23/24 18:45 Temperature 97.1 F L 97.1 F L Pulse Rate 67 85 87 Respiratory Rate 18 18 18 Blood Pressure 145/60 H 140/88 136/69 Pulse Oximetry 98 98 99 Oxygen Delivery Nasal Cannula Oxygen Flow Rate 2 Fraction of Inspired Oxygen 06/23/24 19:44 06/23/24 21:15 06/23/24 21:25 Temperature 97.7 F Pulse Rate 77 Respiratory Rate 16 Blood Pressure 100/58 L Pulse Oximetry 97 98 96 Oxygen Delivery Nasal Cannula Room Air Oxygen Flow Rate 2 Fraction of Inspired Oxygen 06/23/24 23:44 06/24/24 03:44 06/24/24 07:44 Temperature 98.9 F 99.3 F 98.5 F Pulse Rate 83 93 86 Respiratory Rate 14 16 16 Blood Pressure 123/88 111/63 125/60 Pulse Oximetry 94 91 95 Oxygen Delivery Oxygen Flow Rate Fraction of Inspired Oxygen Intake/Output Intake/Output: Intake & Output 06/21/24 06/22/24 06/23/24 06/24/24 23:59 23:59 23:59 23:59 Intake Total 790 480 250 900 Output Total 575 800 600 700 Balance 215 -320 -350 200 Meds/Results Medications: Active Medications Generic Name Dose Route Start Last Admin Trade Name Freq PRN Reason Stop Dose Admin Acetaminophen 500 mg 06/23/24 17:59 Acetaminophen 500 Mg Tablet PO Q6H PRN Pain 1-3 Aspirin 81 mg 06/23/24 21:00 06/24/24 08:29 Aspirin 81 Mg Enteric Tablet PO 81 mg Q12HR WILIAM Administration Celecoxib 200 mg 06/24/24 08:00 06/24/24 08:29 Celecoxib 200 Mg Capsule PO 200 mg DAILY@0800 WILIAM Administration Diazepam 5 mg 06/23/24 17:59 Diazepam (*Crx) 5 Mg Tablet PO Q8H PRN Muscle Spasm Famotidine 20 mg 06/23/24 21:00 06/24/24 08:29 Famotidine 20 Mg Tablet PO 20 mg Q12HR WILIAM Administration Hydromorphone HCl 1 mg 06/23/24 17:59 Hydromorphone Hcl Inj (*Crx) 1 Mg/Ml Syr IV PUSH Q2H PRN Breakthrough Pain Rated 7-10 or NPO Hydromorphone HCl 0.5 mg 06/23/24 17:59 Hydromorphone Hcl Inj (*Crx) 1 Mg/Ml Syr IV PUSH Q2H PRN Breakthrough Pain Rated 4-6 or NPO Hydroxyzine Pamoate 50 mg 06/23/24 17:59 Hydroxyzine Pamoate 25 Mg Capsule PO Q4H PRN Itching Cefazolin Sodium 2 gm in 50 mls @ 100 mls/hr 06/23/24 23:00 06/24/24 06:32 Ancef 2 Gm/D5w 50 Ml IVPB 06/24/24 15:29 100 mls/hr Q8H WILIAM Administration Ibuprofen 800 mg in 200 mls @ 400 mls/hr 06/23/24 17:59 Caldolor 800 Mg/200 Ml IVPB Q6H PRN Breakthrough Pain Rated 1-3 or NPO Naloxone HCl 0.1 mg 06/23/24 17:59 Naloxone Hcl 0.4 Mg/Ml Vial IV PUSH Q2M PRN Opiate Reversal Ondansetron HCl 4 mg 06/23/24 17:59 Ondansetron Inj 4 Mg/2 Ml Vial IV PUSH Q4H PRN Nausea And Vomiting Oxycodone/Acetaminophen 1 tablet 06/23/24 17:59 06/24/24 08:42 Oxycodone/Acetaminophen (*Crx) 5-325 Mg Tablet PO 1 tablet Q4H PRN Administration Pain Rated 4-6 Oxycodone/Acetaminophen 1 tab 06/23/24 17:59 Oxycodone/Acetaminophen (*Crx) 10-325 Mg Tablet PO Q6H PRN Pain Rated 7-10 Polyethylene Glycol 17 gm 06/24/24 09:00 06/24/24 08:29 Polyethylene Glycol 3350 17 Gm Powd.Pack PO 17 gm QAM WILIAM Administration Senna/Docusate Sodium 2 tab 06/24/24 09:00 06/24/24 08:29 Senna/Docusate Sodium Tablet PO 2 tab BID WILIAM Administration Radiology Results: ITS Impressions Hip/Pelvis X-Ray 06/20/24 16:43 IMPRESSION: Fracture of the left femoral neck. Right hip total arthroplasty. Chest X-Ray 06/20/24 16:47 IMPRESSION: No acute cardiopulmonary pathology. Intraoperative X-Ray 06/23/24 16:21 IMPRESSION: 1. Near-anatomic alignment post reduction lag screw fixation of a left femoral subcapital fracture. Labs Labs: Laboratory Results - last 24 hr 06/24/24 06/24/24 04:57 05:00 WBC 14.7 H RBC 3.77 L Hgb 10.5 L Hct 33.3 L MCV 88.3 MCH 27.9 MCHC 31.5 L RDW 14.0 Plt Count 196 MPV 12.7 H Immature Gran % (Auto) 0.5 Neut % (Auto) 83.5 H Lymph % (Auto) 6.2 L [place] % (Auto) 8.6 H Eos % (Auto) 1.0 Baso % (Auto) 0.2 Lymph # (Auto) 0.92 [place] # (Auto) 1.3 H Eos # (Auto) 0.1 Baso # (Auto) 0.0 Abs Immat Gran (auto) 0.07 H Absolute Neuts (auto) 12.3 H Absolute Nucleated RBC 0.000 Nucleated RBC % 0.0 Sodium 133 L Potassium 3.7 Chloride 98 Carbon Dioxide 26 Anion Gap 9 BUN 17 Creatinine 0.78 Estim Creat Clear Calc 36 Estimated GFR > 60 Glucose 110 Calcium 9.3 Magnesium 1.5 L Total Bilirubin 0.7 AST 32 ALT 23 Alkaline Phosphatase 84 Total Protein 7.0 Albumin 3.3 L Quality VTE Prophylaxis VTE prophylaxis: mechanical ordered (SCDs)
[2024-06-24 11:44] VITALS: BP 95/52; PULSE 72; RESP 16; TEMP 36.8; O2SAT 96
[2024-06-24] MEDS: ROSUVASTATIN 20 MG TABLET PO (11:50)
[2024-06-24] MEDS: cycloSPORINE 0.4 ML OPHTH SOLUTION 1 DROP EACH EYE ×2 (11:50→20:55)
[2024-06-24] MEDS: VALSARTAN 160 MG TABLET 320 MG PO (11:50)
[2024-06-24] MEDS: FERROUS SULFATE 325 MG TABLET DR BY MOUTH (11:50)
[2024-06-24] MEDS: DORZOLAMIDE/TIMOLOL OPHTH SOL 10 ML BOTTLE 1 DROP EACH EYE ×2 (11:50→20:53)
[2024-06-24] MEDS: PANTOPRAZOLE 40 MG TABLET PO (11:50)
[2024-06-24] MEDS: OPTI-GEN TAB 1 TABLET PO (11:50)
[2024-06-24] MEDS: amLODIPine BESYLATE 2.5 MG TABLET PO (11:50)
--- NOTE | 2024-06-24 12:57 | P.PNOP_ITS ---
Progress Note: A&P Assessment and Plan (1) Fracture of neck of left femur: Qualifiers: Encounter type: initial encounter Fracture type: closed Qualified Code(s): S72.002A - Fracture of unspecified part of neck of left femur, initial encounter for closed fracture Code(s): S72.002A - Fracture of unspecified part of neck of left femur, initial encounter for closed fracture Status: Acute Assessment and Plan: POD 1 DOING WELL. CONTINUE CURRENT ACTIVITY LEVEL. REHAB ONCE OK WITH MEDICINE Subjective Subjective Date/Time Seen: 06/24/24 12:57 Interval history: POD 1 DOING WELL. PAIN WELL CONTROLLED NO CALF PAIN Exam Extrem: Other: VSS AFEBRILE DRESSING DRY NV INTACT NEG HOMANS SIGN CALF AND THIGH SOFT NON TENDER Objective Data Vital Signs Vital Signs: Vital Signs - 24 hr 06/23/24 14:45 06/23/24 16:11 06/23/24 16:25 Temperature 37.2 C 36.9 C Pulse Rate 82 78 76 Respiratory Rate 16 18 14 Blood Pressure 139/55 L 143/66 H 152/72 H Pulse Oximetry 95 98 99 Oxygen Delivery Room Air Simple Face Mask Simple Face Mask Oxygen Flow Rate 10 10 Fraction of Inspired Oxygen 06/23/24 16:40 06/23/24 16:55 06/23/24 17:10 Temperature Pulse Rate 82 76 73 Respiratory Rate 14 12 16 Blood Pressure 144/85 H 148/71 H 150/75 H Pulse Oximetry 94 93 98 Oxygen Delivery Room Air Room Air Nasal Cannula Oxygen Flow Rate 2 Fraction of Inspired Oxygen 06/23/24 17:25 06/23/24 17:40 06/23/24 17:50 Temperature Pulse Rate 69 70 67 Respiratory Rate 17 16 18 Blood Pressure 150/69 H 156/56 H 145/60 H Pulse Oximetry 98 98 98 Oxygen Delivery Nasal Cannula Nasal Cannula Nasal Cannula Oxygen Flow Rate 2 2 2 Fraction of Inspired Oxygen 06/23/24 18:30 06/23/24 18:45 06/23/24 19:44 Temperature 36.2 C L 36.2 C L 36.5 C Pulse Rate 85 87 77 Respiratory Rate 18 18 16 Blood Pressure 140/88 136/69 100/58 L Pulse Oximetry 98 99 97 Oxygen Delivery Oxygen Flow Rate Fraction of Inspired Oxygen 06/23/24 21:15 06/23/24 21:25 06/23/24 23:44 Temperature 37.2 C Pulse Rate 83 Respiratory Rate 14 Blood Pressure 123/88 Pulse Oximetry 98 96 94 Oxygen Delivery Nasal Cannula Room Air Oxygen Flow Rate 2 Fraction of Inspired Oxygen 21 06/24/24 03:44 06/24/24 07:44 06/24/24 08:00 Temperature 37.4 C 36.9 C Pulse Rate 93 86 Respiratory Rate 16 16 Blood Pressure 111/63 125/60 Pulse Oximetry 91 95 95 Oxygen Delivery Room Air Oxygen Flow Rate Fraction of Inspired Oxygen 06/24/24 09:45 06/24/24 11:44 Temperature 36.8 C Pulse Rate 72 Respiratory Rate 16 Blood Pressure 95/52 L Pulse Oximetry 96 Oxygen Delivery Room Air Oxygen Flow Rate Fraction of Inspired Oxygen Intake/Output Intake/Output: Intake & Output 06/21/24 06/22/24 06/23/24 06/24/24 23:59 23:59 23:59 23:59 Intake Total 790 480 250 900 Output Total 575 800 600 700 Balance 215 -320 -350 200 Meds/Results Medications: Active Medications Generic Name Dose Route Start Last Admin Trade Name Freq PRN Reason Stop Dose Admin Acetaminophen 500 mg 06/23/24 17:59 Acetaminophen 500 Mg Tablet PO Q6H PRN Pain 1-3 Amlodipine Besylate 2.5 mg 06/21/24 09:00 06/24/24 11:50 Amlodipine Besylate 2.5 Mg Tablet PO 2.5 mg DAILY WILIAM Administration Aspirin 81 mg 06/23/24 21:00 06/24/24 08:29 Aspirin 81 Mg Enteric Tablet PO 81 mg Q12HR WILIAM Administration Celecoxib 200 mg 06/24/24 08:00 06/24/24 08:29 Celecoxib 200 Mg Capsule PO 200 mg DAILY@0800 WILIAM Administration Cyclosporine 1 drop 06/20/24 22:30 06/24/24 11:50 Cyclosporine 0.4 Ml Ophth Solution EACH EYE 1 drop Q12HR WILIAM Administration Diazepam 5 mg 06/23/24 17:59 Diazepam (*Crx) 5 Mg Tablet PO Q8H PRN Muscle Spasm Dorzolamide/Timolol 1 drop 06/21/24 09:00 06/24/24 11:50 Dorzolamide/Timolol Ophth Marizol 10 Ml Bottle EACH EYE 1 drop Q12HR WILIAM Administration Famotidine 20 mg 06/23/24 21:00 06/24/24 08:29 Famotidine 20 Mg Tablet PO 20 mg Q12HR WILIAM Administration Ferrous Sulfate 325 mg 06/22/24 09:00 06/24/24 11:50 Ferrous Sulfate [address] BY MOUTH 325 mg Q48H WILIAM Administration Hydrochlorothiazide 12.5 mg 06/21/24 09:00 06/24/24 11:45 Hydrochlorothiazide 12.5 Mg Capsule PO Not Given QAM WILIAM Hydromorphone HCl 1 mg 06/23/24 17:59 Hydromorphone Hcl Inj (*Crx) 1 Mg/Ml Syr IV PUSH Q2H PRN Breakthrough Pain Rated 7-10 or NPO Hydromorphone HCl 0.5 mg 06/23/24 17:59 Hydromorphone Hcl Inj (*Crx) 1 Mg/Ml Syr IV PUSH Q2H PRN Breakthrough Pain Rated 4-6 or NPO Hydroxyzine Pamoate 50 mg 06/23/24 17:59 Hydroxyzine Pamoate 25 Mg Capsule PO Q4H PRN Itching Cefazolin Sodium 2 gm in 50 mls @ 100 mls/hr 06/23/24 23:00 06/24/24 06:32 Ancef 2 Gm/D5w 50 Ml IVPB 06/24/24 15:29 100 mls/hr Q8H WILIAM Administration Ibuprofen 800 mg in 200 mls @ 400 mls/hr 06/23/24 17:59 Caldolor 800 Mg/200 Ml IVPB Q6H PRN Breakthrough Pain Rated 1-3 or NPO Latanoprost 1 drop 06/21/24 21:00 06/24/24 11:46 Latanoprost 0.005% Op Soln 2.5 Ml Btl EACH EYE Not Given HS [facility] Multivitamins/Minerals 1 tablet 06/21/24 09:00 06/24/24 11:50 Opti-Gen Tab PO 1 tablet DAILY [facility] Administration Naloxone HCl 0.1 mg 06/23/24 17:59 Naloxone Hcl 0.4 Mg/Ml Vial IV PUSH Q2M PRN Opiate Reversal Ondansetron HCl 4 mg 06/23/24 17:59 Ondansetron Inj 4 Mg/2 Ml Vial IV PUSH Q4H PRN Nausea And Vomiting Oxycodone/Acetaminophen 1 tablet 06/23/24 17:59 06/24/24 08:42 Oxycodone/Acetaminophen (*Crx) 5-325 Mg Tablet PO 1 tablet Q4H PRN Administration Pain Rated 4-6 Oxycodone/Acetaminophen 1 tab 06/23/24 17:59 Oxycodone/Acetaminophen (*Crx) 10-325 Mg Tablet PO Q6H PRN Pain Rated 7-10 Pantoprazole Sodium 40 mg 06/21/24 09:00 06/24/24 11:50 Pantoprazole 40 Mg Tablet PO 40 mg QAM WILIAM Administration Polyethylene Glycol 17 gm 06/24/24 09:00 06/24/24 08:29 Polyethylene Glycol 3350 17 Gm Powd.Pack PO 17 gm QAM WILIAM Administration Rosuvastatin Calcium 20 mg 06/21/24 09:00 06/24/24 11:50 Rosuvastatin 20 Mg Tablet PO 20 mg DAILY WILIAM Administration Senna/Docusate Sodium 2 tab 06/24/24 09:00 06/24/24 08:29 Senna/Docusate Sodium Tablet PO 2 tab BID WILIAM Administration Valsartan 320 mg 06/21/24 09:00 06/24/24 11:50 Valsartan 160 Mg Tablet PO 320 mg QAM WILIAM Administration Radiology Results: ITS Impressions Hip/Pelvis X-Ray 06/20/24 16:43 IMPRESSION: Fracture of the left femoral neck. Right hip total arthroplasty. Chest X-Ray 06/20/24 16:47 IMPRESSION: No acute cardiopulmonary pathology. Intraoperative X-Ray 06/23/24 16:21 IMPRESSION: 1. Near-anatomic alignment post reduction lag screw fixation of a left femoral subcapital fracture. Labs Labs: Laboratory Results - last 24 hr 06/24/24 06/24/24 04:57 05:00 WBC 14.7 H RBC 3.77 L Hgb 10.5 L Hct 33.3 L MCV 88.3 MCH 27.9 MCHC 31.5 L RDW 14.0 Plt Count 196 MPV 12.7 H Immature Gran % (Auto) 0.5 Neut % (Auto) 83.5 H Lymph % (Auto) 6.2 L [place] % (Auto) 8.6 H Eos % (Auto) 1.0 Baso % (Auto) 0.2 Lymph # (Auto) 0.92 [place] # (Auto) 1.3 H Eos # (Auto) 0.1 Baso # (Auto) 0.0 Abs Immat Gran (auto) 0.07 H Absolute Neuts (auto) 12.3 H Absolute Nucleated RBC 0.000 Nucleated RBC % 0.0 Sodium 133 L Potassium 3.7 Chloride 98 Carbon Dioxide 26 Anion Gap 9 BUN 17 Creatinine 0.78 Estim Creat Clear Calc 36 Estimated GFR > 60 Glucose 110 Calcium 9.3 Magnesium 1.5 L Total Bilirubin 0.7 AST 32 ALT 23 Alkaline Phosphatase 84 Total Protein 7.0 Albumin 3.3 L
[2024-06-24 15:44] VITALS: BP 102/54; PULSE 61; RESP 16; TEMP 36.6; O2SAT 96
[2024-06-24 19:44] VITALS: BP 128/59; PULSE 76; RESP 18; TEMP 36.6; O2SAT 98
[2024-06-24] MEDS: LATANOPROST 0.005% OP SOLN 2.5 ML BTL 1 DROP EACH EYE (20:53)
[2024-06-25 06:19] LABS: Mean Corpuscular HGB Conc 32.3 g/dl (32-36); Mean Corpuscular Hemoglobin 28.6 pg (26-34); Mean Corpuscular Volume 88.6 fl (80-100); Mean Platelet Volume 12.7 fl (7.4-10.4); Platelet Count Result 164 k/mm3 (150-375); Red Cell Distribution Width 14.3 % (11.5-14.5); White Blood Count 11.4 K/mm3 (4.5-10.0)
[2024-06-25 06:37] LABS: Alanine Aminotransferase 18 U/L (6-35); Albumin Level 3.2 g/dL (3.5-5.1); Alkaline Phosphatase 89 U/L (38-126); Anion Gap 7 mmol/L (4-12); Aspartate Amino Transferase 33 U/L (14-36); Bilirubin,Total 0.4 mg/dL (0.2-1.3); Blood Urea Nitrogen 20 mg/dL (7-17); Calcium 9.1 mg/dL (8.4-10.2); Carbon Dioxide 28 mmol/L (22-30); Chloride 98 mmol/L (98-107); Estimated CRCL calculation 36 ml/min; Estimated Glomerular Filt Rate > 60; Glucose 94 mg/dL (65-110); Potassium 3.9 mmol/L (3.4-5.0); Sodium 133 mmol/L (137-145)
[2024-06-25 08:27] LABS: Magnesium 1.9 mg/dL (1.6-2.3)
[2024-06-25] MEDS: SENNA/DOCUSATE SODIUM TABLET 2 TAB PO ×2 (10:18→17:18)
[2024-06-25] MEDS: amLODIPine BESYLATE 2.5 MG TABLET PO (10:18)
[2024-06-25] MEDS: FAMOTIDINE 20 MG TABLET PO ×2 (10:18→21:26)
[2024-06-25] MEDS: OPTI-GEN TAB 1 TABLET PO (10:18)
[2024-06-25] MEDS: PANTOPRAZOLE 40 MG TABLET PO (10:19)
[2024-06-25] MEDS: ASPIRIN 81 MG ENTERIC TABLET PO ×2 (10:19→21:25)
[2024-06-25] MEDS: ROSUVASTATIN 20 MG TABLET PO (10:19)
[2024-06-25] MEDS: CELECOXIB 200 MG CAPSULE PO (10:19)
[2024-06-25] MEDS: cycloSPORINE 0.4 ML OPHTH SOLUTION 1 DROP EACH EYE ×2 (10:20→21:28)
[2024-06-25] MEDS: polyethylene glycoL 3350 17 GM POWD.PACK PO (10:20)
[2024-06-25] MEDS: DORZOLAMIDE/TIMOLOL OPHTH SOL 10 ML BOTTLE 1 DROP EACH EYE ×2 (10:20→21:28)
[2024-06-25] MEDS: VALSARTAN 160 MG TABLET 320 MG PO (10:37)
--- NOTE | 2024-06-25 12:32 | P.PNIM_ITS ---
Progress Note: A&P Assessment and Plan (1) Fracture of neck of left femur: Qualifiers: Encounter type: initial encounter Fracture type: closed Qualified Code(s): S72.002A - Fracture of unspecified part of neck of left femur, initial encounter for closed fracture Code(s): S72.002A - Fracture of unspecified part of neck of left femur, initial encounter for closed fracture Status: Acute Assessment and Plan: * Left hip x-ray showing fracture of the left femoral neck, right hip total arthroplasty * Dr. Lee consulted * Continue pain control * Continue nielsen for now * Planned surgery for 4:00 p.m. tomorrow * NPO after midnight * EKG shown NSR with a rate of 99, QTc 420 * continue bedrest activity orders * SCD's for DVT prophylaxis 06/22: * Surgery 06/22/2024 * DVT prophylaxis per surgery postop * PT OT postop 06/23: * No change Surgery re-scheduled for today 06/23 06/24: * Patient sitting up in chair. PT/OT started. Dressing to left hip C/D/I. No redness, swelling, or drainage. 06/25: * Patient sitting up in chair. PT/OT. Dressing to left hip C/D/I. No redness, swelling, or drainage. (2) Multiple falls: Code(s): R29.6 - Repeated falls Status: Acute Assessment and Plan: s/p ground level fall. * continue fall precautions * Case coordination consulted for rehab placement (3) Benign essential hypertension: Code(s): I10 - Essential (primary) hypertension Status: Acute Assessment and Plan: * Blood pressures 128/59 * continue amlodipine and Losartan (4) HLD (hyperlipidemia): Qualifiers: Hyperlipidemia type: unspecified Qualified Code(s): E78.5 - Hyperlipidemia, unspecified Code(s): E78.5 - Hyperlipidemia, unspecified Status: Acute Assessment and Plan: * continue Rosuvastatin (5) Hypomagnesemia: Code(s): E83.42 - Hypomagnesemia Status: Acute Assessment and Plan: * Magnesium 1.9, improved. * Monitor levels. Plan Code status: Full code per patient DVT prophylaxis: SCD Stress ulcer prophylaxis: Protonix 40 daily PT/OT notes: PT/OT post-op Disposition: Patient admitted for left hip fracture surgery re-scheduled today 06/23/2024 PT/OT postop will likely need rehab placement at discharge. Subjective Date/time seen: 06/25/24 12:32 Interval history: Patient sitting up in chair. Patient denies pain, palpitations, shortness of breath, headache, dizziness, nausea, or vomiting. Review of Systems Review of Systems: All systems reviewed & are unremarkable except as noted in HPI and below Exam Const: General: comfortable and no acute distress Resp: Effort & Inspection: normal respiratory effort Auscultation: clear to auscultation bilaterally Cardio: Rate: regular rate Rhythm: regular rhythm GI: GI Palp: Yes Soft to palpation Auscultation: normal bowel sounds Skin: Other: Dressing to left hip intact with no drainage, redness, or swelling. Neuro: Speech: normal speech Extrem: General: no pedal edema Psych: Mental Status: mental status grossly normal Affect: normal affect Objective Data Vital Signs Vital Signs: Vital Signs - 24 hr 06/24/24 15:44 06/24/24 19:44 Temperature 98 F 98 F Pulse Rate 61 76 Respiratory Rate 16 18 Blood Pressure 102/54 L 128/59 L Pulse Oximetry 96 98 Intake/Output Intake/Output: Intake & Output 06/22/24 06/23/24 06/24/24 06/25/24 23:59 23:59 23:59 23:59 Intake Total 886 112 4009 580 Output Total 800 600 900 Balance -320 -350 830 580 Meds/Results Medications: Active Medications Generic Name Dose Route Start Last Admin Trade Name Freq PRN Reason Stop Dose Admin Acetaminophen 500 mg 06/23/24 17:59 Acetaminophen 500 Mg Tablet PO Q6H PRN Pain 1-3 Amlodipine Besylate 2.5 mg 06/21/24 09:00 06/25/24 10:18 Amlodipine Besylate 2.5 Mg Tablet PO 2.5 mg DAILY WILIAM Administration Aspirin 81 mg 06/23/24 21:00 06/25/24 10:19 Aspirin 81 Mg Enteric Tablet PO 81 mg Q12HR WILIAM Administration Celecoxib 200 mg 06/24/24 08:00 06/25/24 10:19 Celecoxib 200 Mg Capsule PO 200 mg DAILY@0800 WILIAM Administration Cyclosporine 1 drop 06/20/24 22:30 06/25/24 10:20 Cyclosporine 0.4 Ml Ophth Solution EACH EYE 1 drop Q12HR WILIAM Administration Diazepam 5 mg 06/23/24 17:59 Diazepam (*Crx) 5 Mg Tablet PO Q8H PRN Muscle Spasm Dorzolamide/Timolol 1 drop 06/21/24 09:00 06/25/24 10:20 Dorzolamide/Timolol Ophth Marizol 10 Ml Bottle EACH EYE 1 drop Q12HR WILIAM Administration Famotidine 20 mg 06/23/24 21:00 06/25/24 10:18 Famotidine 20 Mg Tablet PO 20 mg Q12HR WILIAM Administration Ferrous Sulfate 325 mg 06/22/24 09:00 06/24/24 11:50 Ferrous Sulfate [address] BY MOUTH 325 mg Q48H WILIAM Administration Hydrochlorothiazide 12.5 mg 06/21/24 09:00 06/24/24 11:45 Hydrochlorothiazide 12.5 Mg Capsule PO Not Given QAM WILIAM Hydromorphone HCl 1 mg 06/23/24 17:59 Hydromorphone Hcl Inj (*Crx) 1 Mg/Ml Syr IV PUSH Q2H PRN Breakthrough Pain Rated 7-10 or NPO Hydromorphone HCl 0.5 mg 06/23/24 17:59 Hydromorphone Hcl Inj (*Crx) 1 Mg/Ml Syr IV PUSH Q2H PRN Breakthrough Pain Rated 4-6 or NPO Hydroxyzine Pamoate 50 mg 06/23/24 17:59 Hydroxyzine Pamoate 25 Mg Capsule PO Q4H PRN Itching Ibuprofen 800 mg in 200 mls @ 400 mls/hr 06/23/24 17:59 Caldolor 800 Mg/200 Ml IVPB Q6H PRN Breakthrough Pain Rated 1-3 or NPO Latanoprost 1 drop 06/21/24 21:00 06/24/24 20:53 Latanoprost 0.005% Op Soln 2.5 Ml Btl EACH EYE 1 drop HS WILIAM Administration Multivitamins/Minerals 1 tablet 06/21/24 09:00 06/25/24 10:18 Opti-Gen Tab PO 1 tablet DAILY WILIAM Administration Naloxone HCl 0.1 mg 06/23/24 17:59 Naloxone Hcl 0.4 Mg/Ml Vial IV PUSH Q2M PRN Opiate Reversal Ondansetron HCl 4 mg 06/23/24 17:59 Ondansetron Inj 4 Mg/2 Ml Vial IV PUSH Q4H PRN Nausea And Vomiting Oxycodone/Acetaminophen 1 tablet 06/23/24 17:59 06/24/24 08:42 Oxycodone/Acetaminophen (*Crx) 5-325 Mg Tablet PO 1 tablet Q4H PRN Administration Pain Rated 4-6 Oxycodone/Acetaminophen 1 tab 06/23/24 17:59 Oxycodone/Acetaminophen (*Crx) 10-325 Mg Tablet PO Q6H PRN Pain Rated 7-10 Pantoprazole Sodium 40 mg 06/21/24 09:00 06/25/24 10:19 Pantoprazole 40 Mg Tablet PO 40 mg QAM WILIAM Administration Polyethylene Glycol 17 gm 06/24/24 09:00 06/25/24 10:20 Polyethylene Glycol 3350 17 Gm Powd.Pack PO 17 gm QAM WILIAM Administration Rosuvastatin Calcium 20 mg 06/21/24 09:00 06/25/24 10:19 Rosuvastatin 20 Mg Tablet PO 20 mg DAILY WILIAM Administration Senna/Docusate Sodium 2 tab 06/24/24 09:00 06/25/24 10:18 Senna/Docusate Sodium Tablet PO 2 tab BID WILIAM Administration Valsartan 320 mg 06/21/24 09:00 06/25/24 10:37 Valsartan 160 Mg Tablet PO 320 mg QAM WILIAM Administration Radiology Results: ITS Impressions Hip/Pelvis X-Ray 06/20/24 16:43 IMPRESSION: Fracture of the left femoral neck. Right hip total arthroplasty. Chest X-Ray 06/20/24 16:47 IMPRESSION: No acute cardiopulmonary pathology. Intraoperative X-Ray 06/23/24 16:21 IMPRESSION: 1. Near-anatomic alignment post reduction lag screw fixation of a left femoral subcapital fracture. Labs Labs: Laboratory Results - last 24 hr 06/25/24 06:11 WBC 11.4 H RBC 3.50 L Hgb 10.0 L Hct 31.0 L MCV 88.6 MCH 28.6 MCHC 32.3 RDW 14.3 Plt Count 164 MPV 12.7 H Sodium 133 L Potassium 3.9 Chloride 98 Carbon Dioxide 28 Anion Gap 7 BUN 20 H Creatinine 0.78 Estim Creat Clear Calc 36 Estimated GFR > 60 Glucose 94 Calcium 9.1 Magnesium 1.9 Total Bilirubin 0.4 AST 33 ALT 18 Alkaline Phosphatase 89 Total Protein 7.0 Albumin 3.2 L Quality VTE Prophylaxis VTE prophylaxis: mechanical ordered (SCDs)
[2024-06-25 14:00] VITALS: BP 116/53; PULSE 84; RESP 18; TEMP 36.5; O2SAT 99
[2024-06-25] MEDS: LATANOPROST 0.005% OP SOLN 2.5 ML BTL 1 DROP EACH EYE (21:28)
[2024-06-25 22:00] VITALS: BP 128/99; PULSE 78; RESP 18; TEMP 36.2; O2SAT 97
[2024-06-26 05:49] VITALS: BP 125/95; PULSE 76; RESP 18; TEMP 36.2; O2SAT 98
[2024-06-26 06:56] LABS: Hematocrit 31.1 % (37.0-47.0); Hemoglobin 9.9 g/dL (12.0-15.0); Immature Platelet Fraction Pct 8.4 % (0.9-11.2); Mean Corpuscular HGB Conc 31.8 g/dl (32-36); Mean Corpuscular Hemoglobin 28.6 pg (26-34); Mean Corpuscular Volume 89.9 fl (80-100); Mean Platelet Volume 13.1 fl (7.4-10.4); Platelet Count Result 198 k/mm3 (150-375); Red Blood Count 3.46 M/mm3 (4.2-5.4); Red Cell Distribution Width 14.2 % (11.5-14.5); White Blood Count 10.9 K/mm3 (4.5-10.0)
[2024-06-26 07:13] LABS: Alanine Aminotransferase 28 U/L (6-35); Albumin Level 3.4 g/dL (3.5-5.1); Alkaline Phosphatase 94 U/L (38-126); Anion Gap 7 mmol/L (4-12); Aspartate Amino Transferase 45 U/L (14-36); Bilirubin,Total 0.5 mg/dL (0.2-1.3); Blood Urea Nitrogen 15 mg/dL (7-17); Calcium 9.7 mg/dL (8.4-10.2); Carbon Dioxide 28 mmol/L (22-30); Chloride 100 mmol/L (98-107); Estimated CRCL calculation 41 ml/min; Estimated Glomerular Filt Rate > 60; Glucose 92 mg/dL (65-110); Potassium 4.2 mmol/L (3.4-5.0); Sodium 135 mmol/L (137-145)
[2024-06-26 08:00] VITALS: O2SAT 98
[2024-06-26] MEDS: FERROUS SULFATE 325 MG TABLET DR BY MOUTH (09:06)
[2024-06-26] MEDS: polyethylene glycoL 3350 17 GM POWD.PACK PO (09:06)
[2024-06-26] MEDS: VALSARTAN 160 MG TABLET 320 MG PO (09:07)
[2024-06-26] MEDS: SENNA/DOCUSATE SODIUM TABLET 2 TAB PO (09:07)
[2024-06-26] MEDS: ROSUVASTATIN 20 MG TABLET PO (09:07)
[2024-06-26] MEDS: OPTI-GEN TAB 1 TABLET PO (09:08)
[2024-06-26] MEDS: CELECOXIB 200 MG CAPSULE PO (09:08)
[2024-06-26] MEDS: ASPIRIN 81 MG ENTERIC TABLET PO ×2 (09:08→20:46)
[2024-06-26] MEDS: PANTOPRAZOLE 40 MG TABLET PO (09:08)
[2024-06-26] MEDS: FAMOTIDINE 20 MG TABLET PO ×2 (09:08→20:46)
[2024-06-26] MEDS: amLODIPine BESYLATE 2.5 MG TABLET PO (09:09)
[2024-06-26] MEDS: hydroCHLOROthiazide 12.5 MG CAPSULE PO (09:09)
[2024-06-26] MEDS: DORZOLAMIDE/TIMOLOL OPHTH SOL 10 ML BOTTLE 1 DROP EACH EYE ×2 (09:10→20:46)
[2024-06-26] MEDS: cycloSPORINE 0.4 ML OPHTH SOLUTION 1 DROP EACH EYE ×2 (09:13→20:46)
--- NOTE | 2024-06-26 11:55 | P.PNIM_ITS ---
Progress Note: A&P Assessment and Plan (1) Fracture of neck of left femur: Qualifiers: Encounter type: initial encounter Fracture type: closed Qualified Code(s): S72.002A - Fracture of unspecified part of neck of left femur, initial encounter for closed fracture Code(s): S72.002A - Fracture of unspecified part of neck of left femur, initial encounter for closed fracture Status: Acute Assessment and Plan: * Left hip x-ray showing fracture of the left femoral neck, right hip total arthroplasty * Dr. Lee consulted * Continue pain control * Continue nielsen for now * Planned surgery for 4:00 p.m. tomorrow * NPO after midnight * EKG shown NSR with a rate of 99, QTc 420 * continue bedrest activity orders * SCD's for DVT prophylaxis 06/22: * Surgery 06/22/2024 * DVT prophylaxis per surgery postop * PT OT postop 06/23: * No change Surgery re-scheduled for today 06/23 06/24: * Patient sitting up in chair. PT/OT started. Dressing to left hip C/D/I. No redness, swelling, or drainage. 06/25: * Patient sitting up in chair. PT/OT. Dressing to left hip C/D/I. No redness, swelling, or drainage. 06/26: * Patient sitting up in chair. PT/OT. Dressing to left hip C/D/I. No redness, swelling, or drainage. (2) Multiple falls: Code(s): R29.6 - Repeated falls Status: Acute Assessment and Plan: s/p ground level fall. * continue fall precautions * Case coordination consulted for rehab placement (3) Benign essential hypertension: Code(s): I10 - Essential (primary) hypertension Status: Acute Assessment and Plan: * Blood pressures 125/95 * continue amlodipine and Losartan (4) HLD (hyperlipidemia): Qualifiers: Hyperlipidemia type: unspecified Qualified Code(s): E78.5 - Hyperlipidemia, unspecified Code(s): E78.5 - Hyperlipidemia, unspecified Status: Acute Assessment and Plan: * continue Rosuvastatin (5) Hypomagnesemia: Code(s): E83.42 - Hypomagnesemia Status: Acute Assessment and Plan: * Magnesium 2.0, improved. * Monitor levels. Plan Code status: Full code per patient DVT prophylaxis: SCD Stress ulcer prophylaxis: Protonix 40 daily PT/OT notes: PT/OT post-op Disposition: Patient admitted for left hip fracture surgery on 06/23/2024 PT/OT postop. Awaiting insurance approval for rehab. Subjective Date/time seen: 06/26/24 11:55 Interval history: Patient sitting up in chair. Patient denies pain, palpitations, shortness of breath, headache, dizziness, nausea, or vomiting. Review of Systems Review of Systems: All systems reviewed & are unremarkable except as noted in HPI and below Exam Const: General: comfortable and no acute distress Resp: Effort & Inspection: normal respiratory effort Auscultation: clear to auscultation bilaterally Cardio: Rate: regular rate Rhythm: regular rhythm GI: GI Palp: Yes Soft to palpation Auscultation: normal bowel sounds Skin: Other: Dressing to left hip intact with no drainage, redness, or swelling. Neuro: Speech: normal speech Extrem: General: no pedal edema Psych: Mental Status: mental status grossly normal Affect: normal affect Objective Data Vital Signs Vital Signs: Vital Signs - 24 hr 06/25/24 14:00 06/25/24 22:00 06/26/24 05:49 Temperature 97.7 F 97.1 F L 97.2 F L Pulse Rate 84 78 76 Respiratory Rate 18 18 18 Blood Pressure 116/53 L 128/99 H 125/95 H Pulse Oximetry 99 97 98 Oxygen Delivery 06/26/24 08:00 06/26/24 08:57 Temperature Pulse Rate Respiratory Rate Blood Pressure Pulse Oximetry 98 Oxygen Delivery Room Air Room Air Intake/Output Intake/Output: Intake & Output 06/23/24 06/24/24 06/25/24 06/26/24 23:59 23:59 23:59 23:59 Intake Total 250 1730 1358 440 Output Total 600 900 300 Balance -168 629 7170 140 Meds/Results Medications: Active Medications Generic Name Dose Route Start Last Admin Trade Name Freq PRN Reason Stop Dose Admin Acetaminophen 500 mg 06/23/24 17:59 Acetaminophen 500 Mg Tablet PO Q6H PRN Pain 1-3 Amlodipine Besylate 2.5 mg 06/21/24 09:00 06/26/24 09:09 Amlodipine Besylate 2.5 Mg Tablet PO 2.5 mg DAILY WILIAM Administration Aspirin 81 mg 06/23/24 21:00 06/26/24 09:08 Aspirin 81 Mg Enteric Tablet PO 81 mg Q12HR [facility] Administration Celecoxib 200 mg 06/24/24 08:00 06/26/24 09:08 Celecoxib 200 Mg Capsule PO 200 mg DAILY@0800 [facility] Administration Cyclosporine 1 drop 06/20/24 22:30 06/26/24 09:13 Cyclosporine 0.4 Ml Ophth Solution EACH EYE 1 drop Q12HR [facility]IAM Administration Diazepam 5 mg 06/23/24 17:59 Diazepam (*Crx) 5 Mg Tablet PO Q8H PRN Muscle Spasm Dorzolamide/Timolol 1 drop 06/21/24 09:00 06/26/24 09:10 Dorzolamide/Timolol Ophth Marizol 10 Ml Bottle EACH EYE 1 drop Q12HR [facility] Administration Famotidine 20 mg 06/23/24 21:00 06/26/24 09:08 Famotidine 20 Mg Tablet PO 20 mg Q12HR [facility] Administration Ferrous Sulfate 325 mg 06/22/24 09:00 06/26/24 09:06 Ferrous Sulfate [address] BY MOUTH 325 mg Q48H [facility] Administration Hydrochlorothiazide 12.5 mg 06/21/24 09:00 06/26/24 09:09 Hydrochlorothiazide 12.5 Mg Capsule PO 12.5 mg QAM [facility] Administration Hydromorphone HCl 1 mg 06/23/24 17:59 Hydromorphone Hcl Inj (*Crx) 1 Mg/Ml Syr IV PUSH Q2H PRN Breakthrough Pain Rated 7-10 or NPO Hydromorphone HCl 0.5 mg 06/23/24 17:59 Hydromorphone Hcl Inj (*Crx) 1 Mg/Ml Syr IV PUSH Q2H PRN Breakthrough Pain Rated 4-6 or NPO Hydroxyzine Pamoate 50 mg 06/23/24 17:59 Hydroxyzine Pamoate 25 Mg Capsule PO Q4H PRN Itching Ibuprofen 800 mg in 200 mls @ 400 mls/hr 06/23/24 17:59 Caldolor 800 Mg/200 Ml IVPB Q6H PRN Breakthrough Pain Rated 1-3 or NPO Latanoprost 1 drop 06/21/24 21:00 06/25/24 21:28 Latanoprost 0.005% Op Soln 2.5 Ml Btl EACH EYE 1 drop HS [facility] Administration Multivitamins/Minerals 1 tablet 06/21/24 09:00 06/26/24 09:08 Opti-Gen Tab PO 1 tablet DAILY [facility] Administration Naloxone HCl 0.1 mg 06/23/24 17:59 Naloxone Hcl 0.4 Mg/Ml Vial IV PUSH Q2M PRN Opiate Reversal Ondansetron HCl 4 mg 06/23/24 17:59 Ondansetron Inj 4 Mg/2 Ml Vial IV PUSH Q4H PRN Nausea And Vomiting Oxycodone/Acetaminophen 1 tablet 06/23/24 17:59 06/24/24 08:42 Oxycodone/Acetaminophen (*Crx) 5-325 Mg Tablet PO 1 tablet Q4H PRN Administration Pain Rated 4-6 Oxycodone/Acetaminophen 1 tab 06/23/24 17:59 Oxycodone/Acetaminophen (*Crx) 10-325 Mg Tablet PO Q6H PRN Pain Rated 7-10 Pantoprazole Sodium 40 mg 06/21/24 09:00 06/26/24 09:08 Pantoprazole 40 Mg Tablet PO 40 mg QAM [facility] Administration Polyethylene Glycol 17 gm 06/24/24 09:00 06/26/24 09:06 Polyethylene Glycol 3350 17 Gm Powd.Pack PO 17 gm QAM [facility] Administration Rosuvastatin Calcium 20 mg 06/21/24 09:00 06/26/24 09:07 Rosuvastatin 20 Mg Tablet PO 20 mg DAILY [facility] Administration Senna/Docusate Sodium 2 tab 06/24/24 09:00 06/26/24 09:07 Senna/Docusate Sodium Tablet PO 2 tab BID [facility] Administration Valsartan 320 mg 06/21/24 09:00 06/26/24 09:07 Valsartan 160 Mg Tablet PO 320 mg QAM [facility] Administration Radiology Results: ITS Impressions Hip/Pelvis X-Ray 06/20/24 16:43 IMPRESSION: Fracture of the left femoral neck. Right hip total arthroplasty. Chest X-Ray 06/20/24 16:47 IMPRESSION: No acute cardiopulmonary pathology. Intraoperative X-Ray 06/23/24 16:21 IMPRESSION: 1. Near-anatomic alignment post reduction lag screw fixation of a left femoral subcapital fracture. Labs Labs: Laboratory Results - last 24 hr 06/26/24 06:11 WBC 10.9 H RBC 3.46 L Hgb 9.9 L Hct 31.1 L MCV 89.9 MCH 28.6 MCHC 31.8 L RDW 14.2 Plt Count 198 MPV 13.1 H % Immature Plt Fraction 8.4 Sodium 135 L Potassium 4.2 Chloride 100 Carbon Dioxide 28 Anion Gap 7 BUN 15 D Creatinine 0.69 L Estim Creat Clear Calc 41 Estimated GFR > 60 Glucose 92 Calcium 9.7 Magnesium 2.0 Total Bilirubin 0.5 AST 45 H ALT 28 Alkaline Phosphatase 94 Total Protein 7.0 Albumin 3.4 L Quality VTE Prophylaxis VTE prophylaxis: mechanical ordered (SCDs)
[2024-06-26 14:00] VITALS: BP 105/49; PULSE 70; RESP 18; TEMP 35.8; O2SAT 99
[2024-06-26] MEDS: LATANOPROST 0.005% OP SOLN 2.5 ML BTL 1 DROP EACH EYE (20:46)
[2024-06-26 22:00] VITALS: BP 130/60; PULSE 72; RESP 18; TEMP 37; O2SAT 98
[2024-06-27 05:23] VITALS: BP 129/86; PULSE 69; RESP 18; TEMP 36.9; O2SAT 99
[2024-06-27 06:33] LABS: Hematocrit 30.5 % (37.0-47.0); Hemoglobin 9.7 g/dL (12.0-15.0); Mean Corpuscular HGB Conc 31.8 g/dl (32-36); Mean Corpuscular Hemoglobin 28.9 pg (26-34); Mean Corpuscular Volume 90.8 fl (80-100); Mean Platelet Volume 12.5 fl (7.4-10.4); Platelet Count Result 228 k/mm3 (150-375); Red Blood Count 3.36 M/mm3 (4.2-5.4); Red Cell Distribution Width 14.1 % (11.5-14.5); White Blood Count 9.9 K/mm3 (4.5-10.0)
[2024-06-27 06:51] LABS: Alanine Aminotransferase 43 U/L (6-35); Albumin Level 3.4 g/dL (3.5-5.1); Alkaline Phosphatase 100 U/L (38-126); Anion Gap 5 mmol/L (4-12); Aspartate Amino Transferase 55 U/L (14-36); Bilirubin,Total 0.4 mg/dL (0.2-1.3); Blood Urea Nitrogen 14 mg/dL (7-17); Carbon Dioxide 29 mmol/L (22-30); Chloride 102 mmol/L (98-107); Estimated CRCL calculation 40 ml/min; Estimated Glomerular Filt Rate > 60; Glucose 93 mg/dL (65-110); Magnesium 1.9 mg/dL (1.6-2.3); Potassium 4.1 mmol/L (3.4-5.0); Sodium 136 mmol/L (137-145)
[2024-06-27] MEDS: DORZOLAMIDE/TIMOLOL OPHTH SOL 10 ML BOTTLE 1 DROP EACH EYE ×2 (08:33→20:17)
[2024-06-27] MEDS: cycloSPORINE 0.4 ML OPHTH SOLUTION 1 DROP EACH EYE ×2 (08:34→20:17)
[2024-06-27] MEDS: CELECOXIB 200 MG CAPSULE PO (08:37)
[2024-06-27] MEDS: FAMOTIDINE 20 MG TABLET PO ×2 (08:38→20:17)
[2024-06-27] MEDS: ASPIRIN 81 MG ENTERIC TABLET PO ×2 (08:39→20:17)
[2024-06-27] MEDS: VALSARTAN 160 MG TABLET 320 MG PO (08:39)
[2024-06-27] MEDS: ROSUVASTATIN 20 MG TABLET PO (08:39)
[2024-06-27] MEDS: amLODIPine BESYLATE 2.5 MG TABLET PO (08:39)
[2024-06-27] MEDS: hydroCHLOROthiazide 12.5 MG CAPSULE PO (08:39)
[2024-06-27] MEDS: OPTI-GEN TAB 1 TABLET PO (08:39)
[2024-06-27] MEDS: PANTOPRAZOLE 40 MG TABLET PO (08:40)
--- NOTE | 2024-06-27 08:44 | PM.PNORT ---
Progress Note: A&P Assessment and Plan (1) Closed hip fracture: Qualifiers: Encounter type: initial encounter Laterality: left Qualified Code(s): S72.002A - Fracture of unspecified part of neck of left femur, initial encounter for closed fracture Code(s): S72.009A - Fracture of unspecified part of neck of unspecified femur, initial encounter for closed fracture Status: Acute Assessment and Plan: POD #4 : CRPP Left Hip Continue PT/OT. WBAT. Walker. HIGH FALL RISK. Continue pain control. Ice Hip. Protect skin. DVT prophylaxis with Aspirin. SCDs. Incentive Spirometry Use reviewed. Monitor Dressing. Change prior to discharge. Bowel Regimen. Dispo: ARF pending progress with PT/OT and medical clearance. (2) Fracture of neck of left femur: Qualifiers: Encounter type: initial encounter Fracture type: closed Qualified Code(s): S72.002A - Fracture of unspecified part of neck of left femur, initial encounter for closed fracture Code(s): S72.002A - Fracture of unspecified part of neck of left femur, initial encounter for closed fracture Status: Acute Plan Reviewed history, exam, radiographs and current labs with attending MD and covering surgeon, Dr. Lee, who agrees with current plan as indicated above. No further recommendations from Dr. Lee at this time. Subjective Subjective Date/Time Seen: 06/27/24 08:44 Post Op day: 4 Interval history: POD #4: CRPP Left Hip Patient doing well. Pain well controlled. No new concerns. Review of Systems Constitutional: Constitutional: Denies chills, Denies fatigue, Denies fever(s), Denies night sweats and Denies weakness Cardiovascular: Cardiovascular: Denies chest pain, Denies lightheadedness, Denies palpitations and Denies dyspnea Respiratory: Respiratory: Denies cough, Denies dyspnea and Denies wheezing Gastrointestinal: Gastrointestinal: Denies abdominal pain, Denies diarrhea, Denies nausea and Denies vomiting Musculoskeletal: Musculoskeletal: Reports arthralgias (left hip ), Reports joint swelling (left hip ) and Denies numbness Neurologic: Denies numbness and Denies weakness Endocrine: Endocrine: Denies fatigue and Denies palpitations Allergic/Immunologic: Allergic/Immunologic: Denies wheezing Exam Const: General: comfortable and no acute distress Orientation/consciousness: patient oriented x3 Limitations: no limitations Resp: Effort & Inspection: normal respiratory effort Cardio: Rate: regular rate Rhythm: regular rhythm GI: Inspection: non-distended Skin: General skin exam: normal color and wounds noted (incision left hip C/D/I ) Wounds: wounds noted (incision left hip C/D/I ) Neuro: General: patient oriented x3 Extrem: Left lower extremity: hip/thigh Details: tenderness Location: of the hip Location: laterally and anteriorly, swelling (thigh soft ) Location: of the hip (lateral. ), abnormal ROM (limitations with internal/external rotation and flexion/extension due to recent surgical intervention ) and other (incision lateral hip c/d/i. ), knee Details: normal to inspection and normal ROM; no tenderness and no swelling, lower leg (Negative Javier's Sign ) Details: no edema, ankle (+ankle dorsiflexion/plantarflexion ) Details: normal to inspection, no edema and normal ROM; no tenderness, no swelling and no warmth and foot Details: normal capillary refill, toes with normal ROM, vascular exam Details: dorsalis pedis pulse present and motor-sensory exam light-touch normal in all toes; no tenderness, no ecchymosis and no crepitus Psych: Mental Status: mental status grossly normal Affect: normal affect Objective Data Vital Signs Vital Signs: Vital Signs - 24 hr 06/26/24 08:57 06/26/24 14:00 06/26/24 21:00 Temperature 35.8 C L Pulse Rate 70 Respiratory Rate 18 Blood Pressure 105/49 L Pulse Oximetry 99 Oxygen Delivery Room Air Room Air 06/26/24 22:00 06/27/24 05:23 Temperature 37.0 C 36.9 C Pulse Rate 72 69 Respiratory Rate 18 18 Blood Pressure 130/60 129/86 Pulse Oximetry 98 99 Oxygen Delivery Intake/Output Intake/Output: Intake & Output 06/24/24 06/25/24 06/26/24 06/27/24 23:59 23:59 23:59 23:59 Intake Total 1730 1358 920 350 Output Total 900 300 Balance 830 1358 620 350 Meds/Results Medications: Active Medications Generic Name Dose Route Start Last Admin Trade Name Freq PRN Reason Stop Dose Admin Acetaminophen 500 mg 06/23/24 17:59 Acetaminophen 500 Mg Tablet PO Q6H PRN Pain 1-3 Amlodipine Besylate 2.5 mg 06/21/24 09:00 06/27/24 08:39 Amlodipine Besylate 2.5 Mg Tablet PO 2.5 mg DAILY WILIAM Administration Aspirin 81 mg 06/23/24 21:00 06/27/24 08:39 Aspirin 81 Mg Enteric Tablet PO 81 mg Q12HR WILIAM Administration Celecoxib 200 mg 06/24/24 08:00 06/27/24 08:37 Celecoxib 200 Mg Capsule PO 200 mg DAILY@0800 WILIAM Administration Cyclosporine 1 drop 06/20/24 22:30 06/27/24 08:34 Cyclosporine 0.4 Ml Ophth Solution EACH EYE 1 drop Q12HR WILIAM Administration Diazepam 5 mg 06/23/24 17:59 Diazepam (*Crx) 5 Mg Tablet PO Q8H PRN Muscle Spasm Dorzolamide/Timolol 1 drop 06/21/24 09:00 06/27/24 08:33 Dorzolamide/Timolol Ophth Marizol 10 Ml Bottle EACH EYE 1 drop Q12HR [facility] Administration Famotidine 20 mg 06/23/24 21:00 06/27/24 08:38 Famotidine 20 Mg Tablet PO 20 mg Q12HR [facility] Administration Ferrous Sulfate 325 mg 06/22/24 09:00 06/26/24 09:06 Ferrous Sulfate [address] BY MOUTH 325 mg Q48H [facility] Administration Hydrochlorothiazide 12.5 mg 06/21/24 09:00 06/27/24 08:39 Hydrochlorothiazide 12.5 Mg Capsule PO 12.5 mg QAM [facility] Administration Hydromorphone HCl 1 mg 06/23/24 17:59 Hydromorphone Hcl Inj (*Crx) 1 Mg/Ml Syr IV PUSH Q2H PRN Breakthrough Pain Rated 7-10 or NPO Hydromorphone HCl 0.5 mg 06/23/24 17:59 Hydromorphone Hcl Inj (*Crx) 1 Mg/Ml Syr IV PUSH Q2H PRN Breakthrough Pain Rated 4-6 or NPO Hydroxyzine Pamoate 50 mg 06/23/24 17:59 Hydroxyzine Pamoate 25 Mg Capsule PO Q4H PRN Itching Ibuprofen 800 mg in 200 mls @ 400 mls/hr 06/23/24 17:59 Caldolor 800 Mg/200 Ml IVPB Q6H PRN Breakthrough Pain Rated 1-3 or NPO Latanoprost 1 drop 06/21/24 21:00 06/26/24 20:46 Latanoprost 0.005% Op Soln 2.5 Ml Btl EACH EYE 1 drop HS WILIAM Administration Multivitamins/Minerals 1 tablet 06/21/24 09:00 06/27/24 08:39 Opti-Gen Tab PO 1 tablet DAILY [facility]ILIAM Administration Naloxone HCl 0.1 mg 06/23/24 17:59 Naloxone Hcl 0.4 Mg/Ml Vial IV PUSH Q2M PRN Opiate Reversal Ondansetron HCl 4 mg 06/23/24 17:59 Ondansetron Inj 4 Mg/2 Ml Vial IV PUSH Q4H PRN Nausea And Vomiting Oxycodone/Acetaminophen 1 tablet 06/23/24 17:59 06/24/24 08:42 Oxycodone/Acetaminophen (*Crx) 5-325 Mg Tablet PO 1 tablet Q4H PRN Administration Pain Rated 4-6 Oxycodone/Acetaminophen 1 tab 06/23/24 17:59 Oxycodone/Acetaminophen (*Crx) 10-325 Mg Tablet PO Q6H PRN Pain Rated 7-10 Pantoprazole Sodium 40 mg 06/21/24 09:00 06/27/24 08:40 Pantoprazole 40 Mg Tablet PO 40 mg QAM [facility] Administration Polyethylene Glycol 17 gm 06/24/24 09:00 06/27/24 07:49 Polyethylene Glycol 3350 17 Gm Powd.Pack PO Not Given QAM [facility] Rosuvastatin Calcium 20 mg 06/21/24 09:00 06/27/24 08:39 Rosuvastatin 20 Mg Tablet PO 20 mg DAILY WILIAM Administration Senna/Docusate Sodium 2 tab 06/24/24 09:00 06/27/24 08:38 Senna/Docusate Sodium Tablet PO Not Given BID WILIAM Valsartan 320 mg 06/21/24 09:00 06/27/24 08:39 Valsartan 160 Mg Tablet PO 320 mg QAM [facility] Administration Radiology Results: ITS Impressions Hip/Pelvis X-Ray 06/20/24 16:43 IMPRESSION: Fracture of the left femoral neck. Right hip total arthroplasty. Chest X-Ray 06/20/24 16:47 IMPRESSION: No acute cardiopulmonary pathology. Intraoperative X-Ray 06/23/24 16:21 IMPRESSION: 1. Near-anatomic alignment post reduction lag screw fixation of a left femoral subcapital fracture. Labs Labs: Laboratory Results - last 24 hr 06/27/24 05:52 WBC 9.9 RBC 3.36 L Hgb 9.7 L Hct 30.5 L MCV 90.8 MCH 28.9 MCHC 31.8 L RDW 14.1 Plt Count 228 MPV 12.5 H Sodium 136 L Potassium 4.1 Chloride 102 Carbon Dioxide 29 Anion Gap 5 BUN 14 Creatinine 0.70 Estim Creat Clear Calc 40 Estimated GFR > 60 Glucose 93 Calcium 10.0 Magnesium 1.9 Total Bilirubin 0.4 AST 55 H ALT 43 H Alkaline Phosphatase 100 Total Protein 7.0 Albumin 3.4 L
--- NOTE | 2024-06-27 11:19 | P.PNIM_ITS ---
Progress Note: A&P Assessment and Plan (1) Fracture of neck of left femur: Qualifiers: Encounter type: initial encounter Fracture type: closed Qualified Code(s): S72.002A - Fracture of unspecified part of neck of left femur, initial encounter for closed fracture Code(s): S72.002A - Fracture of unspecified part of neck of left femur, initial encounter for closed fracture Status: Acute Assessment and Plan: * Left hip x-ray showing fracture of the left femoral neck, right hip total arthroplasty * Dr. Lee consulted * Continue pain control * Continue nielsen for now * Planned surgery for 4:00 p.m. tomorrow * NPO after midnight * EKG shown NSR with a rate of 99, QTc 420 * continue bedrest activity orders * SCD's for DVT prophylaxis 06/22: * Surgery 06/22/2024 * DVT prophylaxis per surgery postop * PT OT postop 06/23: * No change Surgery re-scheduled for today 06/23 06/24: * Patient sitting up in chair. PT/OT started. Dressing to left hip C/D/I. No redness, swelling, or drainage. 06/25: * Patient sitting up in chair. PT/OT. Dressing to left hip C/D/I. No redness, swelling, or drainage. 06/26: * Patient sitting up in chair. PT/OT. Dressing to left hip C/D/I. No redness, swelling, or drainage. 06/27: * Patient sitting up in chair. PT/OT. Dressing to left hip C/D/I. No redness, swelling, or drainage. Awaiting rehab placement insurance approval. (2) Multiple falls: Code(s): R29.6 - Repeated falls Status: Acute Assessment and Plan: s/p ground level fall. * continue fall precautions * Case coordination consulted for rehab placement (3) Benign essential hypertension: Code(s): I10 - Essential (primary) hypertension Status: Acute Assessment and Plan: * Blood pressures 131/65. * continue amlodipine and Losartan (4) HLD (hyperlipidemia): Qualifiers: Hyperlipidemia type: unspecified Qualified Code(s): E78.5 - H yperlipidemia, unspecified Code(s): E78.5 - Hyperlipidemia, unspecified Status: Acute Assessment and Plan: * continue Rosuvastatin (5) Hypomagnesemia: Code(s): E83.42 - Hypomagnesemia Status: Acute Assessment and Plan: * Magnesium 1.9, improved. * Monitor levels. Plan Code status: Full code per patient DVT prophylaxis: SCD Stress ulcer prophylaxis: Protonix 40 daily PT/OT notes: PT/OT post-op Disposition: Patient admitted for left hip fracture surgery on 06/23/2024 PT/OT postop. Awaiting insurance approval for rehab. Subjective Date/time seen: 06/27/24 11:19 Interval history: Patient sitting up in chair. Patient denies pain, palpitations, shortness of breath, headache, dizziness, nausea, or vomiting. Review of Systems Review of Systems: All systems reviewed & are unremarkable except as noted in HPI and below Exam Const: General: comfortable and no acute distress Resp: Effort & Inspection: normal respiratory effort Auscultation: clear to auscultation bilaterally Cardio: Rate: regular rate Rhythm: regular rhythm GI: GI Palp: Yes Soft to palpation Auscultation: normal bowel sounds Skin: Other: Dressing to left hip intact with no drainage, redness, or swelling. Neuro: Speech: normal speech Extrem: General: no pedal edema Psych: Mental Status: mental status grossly normal Affect: normal affect Objective Data Vital Signs Vital Signs: Vital Signs - 24 hr 06/26/24 14:00 06/26/24 21:00 06/26/24 22:00 Temperature 96.4 F L 98.6 F Pulse Rate 70 72 Respiratory Rate 18 18 Blood Pressure 105/49 L 130/60 Pulse Oximetry 99 98 Oxygen Delivery Room Air 06/27/24 05:23 Temperature 98.4 F Pulse Rate 69 Respiratory Rate 18 Blood Pressure 129/86 Pulse Oximetry 99 Oxygen Delivery Intake/Output Intake/Output: Intake & Output 06/24/24 06/25/24 06/26/24 06/27/24 23:59 23:59 23:59 23:59 Intake Total 1730 1358 920 590 Output Total 900 300 Balance 830 1358 620 590 Meds/Results Medications: Active Medications Generic Name Dose Route Start Last Admin Trade Name Freq PRN Reason Stop Dose Admin Acetaminophen 500 mg 06/23/24 17:59 Acetaminophen 500 Mg Tablet PO Q6H PRN Pain 1-3 Amlodipine Besylate 2.5 mg 06/21/24 09:00 06/27/24 08:39 Amlodipine Besylate 2.5 Mg Tablet PO 2.5 mg DAILY WILIAM Administration Aspirin 81 mg 06/23/24 21:00 06/27/24 08:39 Aspirin 81 Mg Enteric Tablet PO 81 mg Q12HR [facility] Administration Celecoxib 200 mg 06/24/24 08:00 06/27/24 08:37 Celecoxib 200 Mg Capsule PO 200 mg DAILY@0800 [facility] Administration Cyclosporine 1 drop 06/20/24 22:30 06/27/24 08:34 Cyclosporine 0.4 Ml Ophth Solution EACH EYE 1 drop Q12HR [facility] Administration Diazepam 5 mg 06/23/24 17:59 Diazepam (*Crx) 5 Mg Tablet PO Q8H PRN Muscle Spasm Dorzolamide/Timolol 1 drop 06/21/24 09:00 06/27/24 08:33 Dorzolamide/Timolol Ophth Marizol 10 Ml Bottle EACH EYE 1 drop Q12HR [facility] Administration Famotidine 20 mg 06/23/24 21:00 06/27/24 08:38 Famotidine 20 Mg Tablet PO 20 mg Q12HR [facility] Administration Ferrous Sulfate 325 mg 06/22/24 09:00 06/26/24 09:06 Ferrous Sulfate [address] BY MOUTH 325 mg Q48H [facility] Administration Hydrochlorothiazide 12.5 mg 06/21/24 09:00 06/27/24 08:39 Hydrochlorothiazide 12.5 Mg Capsule PO 12.5 mg QAM [facility] Administration Hydromorphone HCl 1 mg 06/23/24 17:59 Hydromorphone Hcl Inj (*Crx) 1 Mg/Ml Syr IV PUSH Q2H PRN Breakthrough Pain Rated 7-10 or NPO Hydromorphone HCl 0.5 mg 06/23/24 17:59 Hydromorphone Hcl Inj (*Crx) 1 Mg/Ml Syr IV PUSH Q2H PRN Breakthrough Pain Rated 4-6 or NPO Hydroxyzine Pamoate 50 mg 06/23/24 17:59 Hydroxyzine Pamoate 25 Mg Capsule PO Q4H PRN Itching Ibuprofen 800 mg in 200 mls @ 400 mls/hr 06/23/24 17:59 Caldolor 800 Mg/200 Ml IVPB Q6H PRN Breakthrough Pain Rated 1-3 or NPO Latanoprost 1 drop 06/21/24 21:00 06/26/24 20:46 Latanoprost 0.005% Op Soln 2.5 Ml Btl EACH EYE 1 drop HS [facility]ILIAM Administration Multivitamins/Minerals 1 tablet 06/21/24 09:00 06/27/24 08:39 Opti-Gen Tab PO 1 tablet DAILY [facility] Administration Naloxone HCl 0.1 mg 06/23/24 17:59 Naloxone Hcl 0.4 Mg/Ml Vial IV PUSH Q2M PRN Opiate Reversal Ondansetron HCl 4 mg 06/23/24 17:59 Ondansetron Inj 4 Mg/2 Ml Vial IV PUSH Q4H PRN Nausea And Vomiting Oxycodone/Acetaminophen 1 tablet 06/23/24 17:59 06/24/24 08:42 Oxycodone/Acetaminophen (*Crx) 5-325 Mg Tablet PO 1 tablet Q4H PRN Administration Pain Rated 4-6 Oxycodone/Acetaminophen 1 tab 06/23/24 17:59 Oxycodone/Acetaminophen (*Crx) 10-325 Mg Tablet PO Q6H PRN Pain Rated 7-10 Pantoprazole Sodium 40 mg 06/21/24 09:00 06/27/24 08:40 Pantoprazole 40 Mg Tablet PO 40 mg QAM [facility] Administration Polyethylene Glycol 17 gm 06/24/24 09:00 06/27/24 07:49 Polyethylene Glycol 3350 17 Gm Powd.Pack PO Not Given QAM [facility] Rosuvastatin Calcium 20 mg 06/21/24 09:00 06/27/24 08:39 Rosuvastatin 20 Mg Tablet PO 20 mg DAILY [facility] Administration Senna/Docusate Sodium 2 tab 06/24/24 09:00 06/27/24 08:38 Senna/Docusate Sodium Tablet PO Not Given BID [facility] Valsartan 320 mg 06/21/24 09:00 06/27/24 08:39 Valsartan 160 Mg Tablet PO 320 mg QAM [facility] Administration Radiology Results: ITS Impressions Hip/Pelvis X-Ray 06/20/24 16:43 IMPRESSION: Fracture of the left femoral neck. Right hip total arthroplasty. Chest X-Ray 06/20/24 16:47 IMPRESSION: No acute cardiopulmonary pathology. Intraoperative X-Ray 06/23/24 16:21 IMPRESSION: 1. Near-anatomic alignment post reduction lag screw fixation of a left femoral subcapital fracture. Labs Labs: Laboratory Results - last 24 hr 06/27/24 05:52 WBC 9.9 RBC 3.36 L Hgb 9.7 L Hct 30.5 L MCV 90.8 MCH 28.9 MCHC 31.8 L RDW 14.1 Plt Count 228 MPV 12.5 H Sodium 136 L Potassium 4.1 Chloride 102 Carbon Dioxide 29 Anion Gap 5 BUN 14 Creatinine 0.70 Estim Creat Clear Calc 40 Estimated GFR > 60 Glucose 93 Calcium 10.0 Magnesium 1.9 Total Bilirubin 0.4 AST 55 H ALT 43 H Alkaline Phosphatase 100 Total Protein 7.0 Albumin 3.4 L Quality VTE Prophylaxis VTE prophylaxis: mechanical ordered (SCDs)
--- NOTE | 2024-06-27 11:52 | PCNWS ---
Weekly nutritional screen. Patient is tolerating current regular diet with adequate intake at this time, would like Ensure daily - ordered. No weight loss reported. No further nutritional recommendations at this time.
[2024-06-27 14:00] VITALS: BP 131/65; PULSE 78; RESP 18; TEMP 36.1; O2SAT 98
[2024-06-27 20:15] VITALS: PULSE 62; RESP 18; O2SAT 99
[2024-06-27] MEDS: LATANOPROST 0.005% OP SOLN 2.5 ML BTL 1 DROP EACH EYE (20:17)
[2024-06-27 22:00] VITALS: BP 147/69; PULSE 62; RESP 18; TEMP 35.8; O2SAT 99
[2024-06-28 05:55] VITALS: BP 141/72; PULSE 61; RESP 18; TEMP 36.1; O2SAT 100
[2024-06-28 06:02] LABS: Hematocrit 31.6 % (37.0-47.0); Mean Corpuscular HGB Conc 31.6 g/dl (32-36); Mean Corpuscular Hemoglobin 28.7 pg (26-34); Mean Corpuscular Volume 90.8 fl (80-100); Mean Platelet Volume 11.8 fl (7.4-10.4); Platelet Count Result 247 k/mm3 (150-375); Red Blood Count 3.48 M/mm3 (4.2-5.4); Red Cell Distribution Width 14.1 % (11.5-14.5); White Blood Count 8.4 K/mm3 (4.5-10.0)
[2024-06-28 06:16] LABS: Alanine Aminotransferase 49 U/L (6-35); Albumin Level 3.5 g/dL (3.5-5.1); Alkaline Phosphatase 101 U/L (38-126); Anion Gap 9 mmol/L (4-12); Aspartate Amino Transferase 54 U/L (14-36); Bilirubin,Total 0.3 mg/dL (0.2-1.3); Blood Urea Nitrogen 15 mg/dL (7-17); Calcium 9.9 mg/dL (8.4-10.2); Carbon Dioxide 26 mmol/L (22-30); Chloride 102 mmol/L (98-107); Estimated CRCL calculation 43 ml/min; Estimated Glomerular Filt Rate > 60; Glucose 95 mg/dL (65-110); Magnesium 1.7 mg/dL (1.6-2.3); Potassium 3.9 mmol/L (3.4-5.0); Sodium 137 mmol/L (137-145)
--- NOTE | 2024-06-28 08:44 | PM.PNORT ---
Progress Note: A&P Assessment and Plan (1) Closed hip fracture: Qualifiers: Encounter type: initial encounter Laterality: left Qualified Code(s): S72.002A - Fracture of unspecified part of neck of left femur, initial encounter for closed fracture Code(s): S72.009A - Fracture of unspecified part of neck of unspecified femur, initial encounter for closed fracture Status: Acute Assessment and Plan: POD #5: CRPP Left Hip Continue PT/OT. WBAT. Walker. HIGH FALL RISK. Continue pain control. Ice Hip. Protect skin. DVT prophylaxis with Aspirin. SCDs. Incentive Spirometry Use reviewed. Monitor Dressing. Change prior to discharge. Bowel Regimen. Dispo: Acute Rehab pending progress with PT/OT and medical clearance. (2) Fracture of neck of left femur: Qualifiers: Encounter type: initial encounter Fracture type: closed Qualified Code(s): S72.002A - Fracture of unspecified part of neck of left femur, initial encounter for closed fracture Code(s): S72.002A - Fracture of unspecified part of neck of left femur, initial encounter for closed fracture Status: Acute Plan Reviewed history, exam, radiographs and current labs with attending MD and covering surgeon, Dr. Lee, who agrees with current plan as indicated above. No further recommendations from Dr. Lee at this time. Subjective Subjective Date/Time Seen: 06/28/24 08:44 Post Op day: 5 Interval history: POD #5: CRPP Left Hip Patient doing well. Pain well controlled. No new concerns. Working well with PT/OT. Review of Systems Constitutional: Constitutional: Denies chills, Denies fatigue, Denies fever(s), Denies night sweats and Denies weakness Cardiovascular: Cardiovascular: Denies chest pain, Denies lightheadedness, Denies palpitations and Denies dyspnea Respiratory: Respiratory: Denies cough, Denies dyspnea and Denies wheezing Gastrointestinal: Gastrointestinal: Denies abdominal pain, Denies diarrhea, Denies nausea and Denies vomiting Musculoskeletal: Musculoskeletal: Reports arthralgias (left hip ), Reports joint swelling (left hip ) and Denies numbness Neurologic: Denies numbness and Denies weakness Endocrine: Endocrine: Denies fatigue and Denies palpitations Allergic/Immunologic: Allergic/Immunologic: Denies wheezing Exam Const: General: comfortable and no acute distress Orientation/consciousness: patient oriented x3 Limitations: no limitations Resp: Effort & Inspection: normal respiratory effort Cardio: Rate: regular rate Rhythm: regular rhythm GI: Inspection: non-distended Skin: General skin exam: normal color and wounds noted (incision left hip C/D/I ) Wounds: wounds noted (incision left hip C/D/I ) Neuro: General: patient oriented x3 Extrem: Left lower extremity: hip/thigh Details: tenderness Location: of the hip Location: laterally and anteriorly, swelling (thigh soft ) Location: of the hip (lateral. ), abnormal ROM (limitations with internal/external rotation and flexion/extension due to recent surgical intervention ) and other (incision lateral hip c/d/i. ), knee Details: normal to inspection and normal ROM; no tenderness and no swelling, lower leg (Negative Javier's Sign ) Details: no edema, ankle (+ankle dorsiflexion/plantarflexion ) Details: normal to inspection, no edema and normal ROM; no tenderness, no swelling and no warmth and foot Details: normal capillary refill, toes with normal ROM, vascular exam Details: dorsalis pedis pulse present and motor-sensory exam light-touch normal in all toes; no tenderness, no ecchymosis and no crepitus Psych: Mental Status: mental status grossly normal Affect: normal affect Objective Data Vital Signs Vital Signs: Vital Signs - 24 hr 06/27/24 14:00 06/27/24 20:15 06/27/24 22:00 Temperature 36.1 C L 35.8 C L Pulse Rate 78 62 62 Respiratory Rate 18 18 18 Blood Pressure 131/65 147/69 H Pulse Oximetry 98 99 99 Oxygen Delivery Room Air Fraction of Inspired Oxygen 21 06/28/24 05:55 Temperature 36.1 C L Pulse Rate 61 Respiratory Rate 18 Blood Pressure 141/72 H Pulse Oximetry 100 Oxygen Delivery Fraction of Inspired Oxygen Intake/Output Intake/Output: Intake & Output 06/25/24 06/26/24 06/27/24 06/28/24 23:59 23:59 23:59 23:59 Intake Total 5777 603 8171 250 Output Total 300 Balance 7644 987 0858 250 Meds/Results Medications: Active Medications Generic Name Dose Route Start Last Admin Trade Name Freq PRN Reason Stop Dose Admin Acetaminophen 500 mg 06/23/24 17:59 Acetaminophen 500 Mg Tablet PO Q6H PRN Pain 1-3 Amlodipine Besylate 2.5 mg 06/21/24 09:00 06/27/24 08:39 Amlodipine Besylate 2.5 Mg Tablet PO 2.5 mg DAILY WILIAM Administration Aspirin 81 mg 06/23/24 21:00 06/27/24 20:17 Aspirin 81 Mg Enteric Tablet PO 81 mg Q12HR WILIAM Administration Celecoxib 200 mg 06/24/24 08:00 06/27/24 08:37 Celecoxib 200 Mg Capsule PO 200 mg DAILY@0800 WILIAM Administration Cyclosporine 1 drop 06/20/24 22:30 06/27/24 20:17 Cyclosporine 0.4 Ml Ophth Solution EACH EYE 1 drop Q12HR WILIAM Administration Diazepam 5 mg 06/23/24 17:59 Diazepam (*Crx) 5 Mg Tablet PO Q8H PRN Muscle Spasm Dorzolamide/Timolol 1 drop 06/21/24 09:00 06/27/24 20:17 Dorzolamide/Timolol Ophth Marizol 10 Ml Bottle EACH EYE 1 drop Q12HR WILIAM Administration Famotidine 20 mg 06/23/24 21:00 06/27/24 20:17 Famotidine 20 Mg Tablet PO 20 mg Q12HR WILIAM Administration Ferrous Sulfate 325 mg 06/22/24 09:00 06/26/24 09:06 Ferrous Sulfate [address] BY MOUTH 325 mg Q48H WILIAM Administration Hydrochlorothiazide 12.5 mg 06/21/24 09:00 06/27/24 08:39 Hydrochlorothiazide 12.5 Mg Capsule PO 12.5 mg QAM WILIAM Administration Hydromorphone HCl 1 mg 06/23/24 17:59 Hydromorphone Hcl Inj (*Crx) 1 Mg/Ml Syr IV PUSH Q2H PRN Breakthrough Pain Rated 7-10 or NPO Hydromorphone HCl 0.5 mg 06/23/24 17:59 Hydromorphone Hcl Inj (*Crx) 1 Mg/Ml Syr IV PUSH Q2H PRN Breakthrough Pain Rated 4-6 or NPO Hydroxyzine Pamoate 50 mg 06/23/24 17:59 Hydroxyzine Pamoate 25 Mg Capsule PO Q4H PRN Itching Ibuprofen 800 mg in 200 mls @ 400 mls/hr 06/23/24 17:59 Caldolor 800 Mg/200 Ml IVPB Q6H PRN Breakthrough Pain Rated 1-3 or NPO Latanoprost 1 drop 06/21/24 21:00 06/27/24 20:17 Latanoprost 0.005% Op Soln 2.5 Ml Btl EACH EYE 1 drop HS WILIAM Administration Multivitamins/Minerals 1 tablet 06/21/24 09:00 06/27/24 08:39 Opti-Gen Tab PO 1 tablet DAILY WILIAM Administration Naloxone HCl 0.1 mg 06/23/24 17:59 Naloxone Hcl 0.4 Mg/Ml Vial IV PUSH Q2M PRN Opiate Reversal Ondansetron HCl 4 mg 06/23/24 17:59 Ondansetron Inj 4 Mg/2 Ml Vial IV PUSH Q4H PRN Nausea And Vomiting Oxycodone/Acetaminophen 1 tablet 06/23/24 17:59 06/24/24 08:42 Oxycodone/Acetaminophen (*Crx) 5-325 Mg Tablet PO 1 tablet Q4H PRN Administration Pain Rated 4-6 Oxycodone/Acetaminophen 1 tab 06/23/24 17:59 Oxycodone/Acetaminophen (*Crx) 10-325 Mg Tablet PO Q6H PRN Pain Rated 7-10 Pantoprazole Sodium 40 mg 06/21/24 09:00 06/27/24 08:40 Pantoprazole 40 Mg Tablet PO 40 mg QAM [facility] Administration Polyethylene Glycol 17 gm 06/24/24 09:00 06/27/24 07:49 Polyethylene Glycol 3350 17 Gm Powd.Pack PO Not Given QAM WILIAM Rosuvastatin Calcium 20 mg 06/21/24 09:00 06/27/24 08:39 Rosuvastatin 20 Mg Tablet PO 20 mg DAILY WILIAM Administration Senna/Docusate Sodium 2 tab 06/24/24 09:00 06/27/24 15:16 Senna/Docusate Sodium Tablet PO Not Given BID WILIAM Valsartan 320 mg 06/21/24 09:00 06/27/24 08:39 Valsartan 160 Mg Tablet PO 320 mg QAM [facility] Administration Radiology Results: ITS Impressions Hip/Pelvis X-Ray 06/20/24 16:43 IMPRESSION: Fracture of the left femoral neck. Right hip total arthroplasty. Chest X-Ray 06/20/24 16:47 IMPRESSION: No acute cardiopulmonary pathology. Intraoperative X-Ray 06/23/24 16:21 IMPRESSION: 1. Near-anatomic alignment post reduction lag screw fixation of a left femoral subcapital fracture. Labs Labs: Laboratory Results - last 24 hr 06/28/24 05:38 WBC 8.4 RBC 3.48 L Hgb 10.0 L Hct 31.6 L MCV 90.8 MCH 28.7 MCHC 31.6 L RDW 14.1 Plt Count 247 MPV 11.8 H Sodium 137 Potassium 3.9 Chloride 102 Carbon Dioxide 26 Anion Gap 9 BUN 15 Creatinine 0.65 L Estim Creat Clear Calc 43 Estimated GFR > 60 Glucose 95 Calcium 9.9 Magnesium 1.7 Total Bilirubin 0.3 AST 54 H ALT 49 H Alkaline Phosphatase 101 Total Protein 7.0 Albumin 3.5
[2024-06-28] MEDS: hydroCHLOROthiazide 12.5 MG CAPSULE PO (08:47)
[2024-06-28] MEDS: FERROUS SULFATE 325 MG TABLET DR BY MOUTH (08:47)
[2024-06-28] MEDS: PANTOPRAZOLE 40 MG TABLET PO (08:47)
[2024-06-28] MEDS: OPTI-GEN TAB 1 TABLET PO (08:47)
[2024-06-28] MEDS: FAMOTIDINE 20 MG TABLET PO (08:47)
[2024-06-28] MEDS: CELECOXIB 200 MG CAPSULE PO (08:47)
[2024-06-28] MEDS: VALSARTAN 160 MG TABLET 320 MG PO (08:47)
[2024-06-28] MEDS: amLODIPine BESYLATE 2.5 MG TABLET PO (08:47)
[2024-06-28] MEDS: ASPIRIN 81 MG ENTERIC TABLET PO (08:47)
[2024-06-28] MEDS: ROSUVASTATIN 20 MG TABLET PO (08:47)
[2024-06-28] MEDS: cycloSPORINE 0.4 ML OPHTH SOLUTION 1 DROP EACH EYE (08:48)
[2024-06-28] MEDS: DORZOLAMIDE/TIMOLOL OPHTH SOL 10 ML BOTTLE 1 DROP EACH EYE (08:55)
--- NOTE | 2024-06-28 12:07 | P.DS_ITS ---
DS: Admitting Diagnosis Discharge Date 06/28/2024 Admitting Diagnosis Fall DS: Discharge Diagnosis Discharge Diagnosis (1) Fracture of neck of left femur: Qualifiers: Encounter type: initial encounter Fracture type: closed Qualified Code(s): S72.002A - Fracture of unspecified part of neck of left femur, initial encounter for closed fracture Code(s): S72.002A - Fracture of unspecified part of neck of left femur, initial encounter for closed fracture Status: Acute (2) Multiple falls: Code(s): R29.6 - Repeated falls Status: Acute (3) Benign essential hypertension: Code(s): I10 - Essential (primary) hypertension Status: Acute (4) HLD (hyperlipidemia): Qualifiers: Hyperlipidemia type: unspecified Qualified Code(s): E78.5 - Hyperlipidemia, unspecified Code(s): E78.5 - Hyperlipidemia, unspecified Status: Acute (5) Hypomagnesemia: Code(s): E83.42 - Hypomagnesemia Status: Acute DS: Summary Hospital Course Hospital Course: Hip/Pelvis X-Ray 06/20/24 16:43 IMPRESSION: Fracture of the left femoral neck. Right hip total arthroplasty. Chest X-Ray 06/20/24 16:47 IMPRESSION: No acute cardiopulmonary pathology. EKG: Normal sinus rhythm rate 99 QTC 420. Patient had left hip surgery. PT/OT. Magnesium replaced. Discharging to SNF for rehab. Status at Discharge Functional status at discharge: uses cane/walker Overall status at discharge: patient is not back to baseline Time Spent with Patient Time attestation: Total time spent providing and/or coordinating discharge services: Time spent: Greater than 30 minutes Exam Const: General: comfortable and no acute distress Resp: Effort & Inspection: normal respiratory effort Auscultation: clear to auscultation bilaterally Cardio: Rate: regular rate Rhythm: regular rhythm GI: GI Palp: Yes Soft to palpation Auscultation: normal bowel sounds Skin: Other: Dressing to left hip intact Extrem: General: no pedal edema Psych: Mental Status: mental status grossly normal Affect: normal affect DS: Data Data Completed and Pending Labs on day of discharge: Labs from last 24 hours 06/28/24 05:38 WBC 8.4 RBC 3.48 L Hgb 10.0 L Hct 31.6 L MCV 90.8 MCH 28.7 MCHC 31.6 L RDW 14.1 Plt Count 247 MPV 11.8 H Sodium 137 Potassium 3.9 Chloride 102 Carbon Dioxide 26 Anion Gap 9 BUN 15 Creatinine 0.65 L Estim Creat Clear Calc 43 Estimated GFR > 60 Glucose 95 Calcium 9.9 Magnesium 1.7 Total Bilirubin 0.3 AST 54 H ALT 49 H Alkaline Phosphatase 101 Total Protein 7.0 Albumin 3.5 Discharge Plan Discharge Attending physician on discharge: Meet Lauren Consulting providers: Sindhu Naqvi; Sven Lee Discharging Clinician: Shnatelle Mccann Anticipated Discharge Date/Time: 06/28/24 13:00 Patient Disposition: SNF Activity: may shower and no driving Diet: as tolerated Wound Care Instructions: follow printed instructions Discharge Instructions: Postoperative Hip Fracture Instructions Dr. Sven Lee [phone] * Dressing to be changed daily with an island dressing beginning on post op day #2. May stop dressing changes at post op day #14. Everson to be removed on post op day #14 * Weight bearing: Toe-touch weight bearing. * You may shower with your dressing but do not submerge in a bath tub. * Do not drive or operate machinery until you are released by your surgeon. * Do not walk without a walker for any reason until you are released by your surgeon. * DVT prophylaxis x28 days post op. * Continue to apply ice to the hip intermittently for additional pain relief. Protect your skin with a towel or pillow case. * Continue to follow strict hip fracture precautions. * Please contact our office with any questions/concerns regarding your hip at [phone]. * Follow up appointment instructions indicated below. Thank you for entrusting [facility] with your healthcare! Patient Instructions: Pain Management (DC), Opioid Safety (DC) Patient Language: Russian Stand Alone Forms: General Discharge Information Follow-up/Referrals: Sven Lee MD [Physician] - 08/04/24 9:00 am Estela Hoffman MD [Primary Care Provider] - 2 Weeks Discharge Medications: New oxycodone-acetaminophen 5-325 mg Tablet 1 - 2 tablet PO Q4-6H PRN (Reason: pain) Qty: 40 0RF aspirin 81 mg Tablet,Delayed Release (Dr/Ec) 81 mg PO Q12HR 28 Days Qty: 56 0RF polyethylene glycol 3350 [Miralax] 17 gram Powder In Packet 17 g PO QAM Qty: 30 0RF Continued Restasis 0.05 % dropperette 1 drp EACH EYE Q12H [place] 0.01 % drops 1 drp EACH EYE HS dorzolamide-timolol (PF) 2-0.5 % drops 1 drp EACH EYE BID (DME) Rollator walker with seat See Rx Instructions .Route .MEDSUPPLY Qty: 1 0RF Rx Instructions: As directed Fish Oil 120-180 mg Capsule 1 cap PO DAILY Multivitamin 50 Plus Tablet 1 tablet PO DAILY ferrous sulfate 325 mg (65 mg iron) Tablet 325 mg PO EVERY OTHER DAY acetaminophen 500 mg Capsule 500 mg PO Q6H PRN (Reason: Pain) amlodipine 2.5 mg tablet 2.5 mg PO DAILY Qty: 100 4RF valsartan-hydrochlorothiazide 320-12.5 mg tablet 1 tablet PO DAILY Qty: 100 3RF esomeprazole magnesium 40 mg capsule,delayed release(DR/EC) See Rx Instructions .ROUTE .COMPLEX Qty: 100 3RF Dose Instruction: TAKE 1 CAPSULE BY MOUTH DAILY Rx Instructions: TAKE 1 CAPSULE BY MOUTH DAILY rosuvastatin 20 mg tablet 20 mg PO DAILY Qty: 100 3RF Date of admission: 06/20/24 18:51 Primary Care Provider: Estela Hoffman Admitting Provider: Hay Butterfield Attending physician on admission: Nina Perez Condition: Stable Hospitalist MIPS Heart Failure (Exclusion) Patient has history of Heart Transplant or Left Ventricular Assistive Device?: No IF YES, STOP HERE Heart Failure (Qualifier) Patient has current or prior documentation of LVEF less than or equal to 40%, or mod/servere depressed LVSF?: No IF NO, STOP HERE
[2024-06-28 14:00] VITALS: BP 126/54; PULSE 84; RESP 18; TEMP 36.6; O2SAT 98
== END 2024-06-28 16:20 | DRG 482 ==
LOC: ANHED 17:57 → ANH3MEDSUR 20:06
PROVIDERS: Nurse Practitioner Family; Orthopaedic Surgery; Admitting Provider General Practice; Emergency Provider Emergency Medicine; PCP Family Medicine; Visit Provider Nurse Practitioner Family
PROC: 0QS734Z Reposition Left Upper Femur with Internal Fixation Device, Percutaneous Approach (ICD-10-PCS; principal; 2024-06-23 15:30)
DX: S72.002A Fracture of unspecified part of neck of left femur, initial encounter for closed fracture (principal); W19.XXXA Unspecified fall, initial encounter; I10 Essential (primary) hypertension; E78.5 Hyperlipidemia, unspecified; E83.42 Hypomagnesemia; Z96.641 Presence of right artificial hip joint; H40.9 Unspecified glaucoma; M16.11 Unilateral primary osteoarthritis, right hip; M17.0 Bilateral primary osteoarthritis of knee; K21.9 Gastro-esophageal reflux disease without esophagitis; R73.03 Prediabetes; R29.6 Repeated falls; Z96.652 Presence of left artificial knee joint; Z96.1 Presence of intraocular lens; Z98.42 Cataract extraction status, left eye; Z98.41 Cataract extraction status, right eye; Z90.710 Acquired absence of both cervix and uterus; Z90.722 Acquired absence of ovaries, bilateral; Z87.891 Personal history of nicotine dependence
CPT/HCPCS: 36415; 71045; 73502; 80053; 83735; 85025; 85027; 85055; 85610; 93005; 96374; 96375; 96376; 97110; 97116; 97161; 97166; 97530; 97535; 99199; 99285; A9270; C1713; J0690; J2003; J2270; J2405; J2704; J3010; J3475; J7120